=== PATIENT | female | born 1955 | race Caucasian/White ===

== ENCOUNTER 2018-07-25 15:28 | Inpatient (IN) | payer MEDICARE, BC ==
[~2018-07-25] VITALS: Ht 165.1 cm; Wt 63.5 kg
--- NOTE | 2018-07-25 16:00 | NUR ---
PT BIBS C/O SWELING IN BOTH LEGS, LOWER EXTREMETIES. +WEAKNESS.- N/V, - CHAUDHRY, STEADY GAIT
[2018-07-25 16:04] LABS: BASOPHILS % (AUTO) 0.1 % (0.0-2.0); HEMATOCRIT 28 % (33-45); HEMOGLOBIN 8.7 g/dL (11.5-14.8); LYMPHOCYTES # (AUTO) 0.6 /CMM (0.8-4.8); LYMPHOCYTES % (AUTO) 5.2 % (20.0-44.0); MEAN CORPUSCULAR HGB CONC 32 g/dl (31.0-36.0); MEAN CORPUSCULAR VOLUME 72 fL (82-100); MONOCYTES # (AUTO) 1.2 /CMM (0.1-1.30); MONOCYTES % (AUTO) 9.8 % (2.0-12.0); NEUTROPHILS # (AUTO) 10.4 /CMM (1.8-8.9); NEUTROPHILS % (AUTO) 84.9 % (43.0-81.0); PLATELET COUNT (AUTO) 743 /CMM (150-450); RED BLOOD CELL COUNT(AUTO) 3.84 MIL/uL (4.0-5.2); WHITE BLOOD COUNT (AUTO) 12.3 K/uL (4.3-11.0)
[2018-07-25 16:05] LABS: CALCIUM, SERUM 8.4 mg/dL (8.5-10.1); CARBON DIOXIDE 25 mmol/L (21-32); CHLORIDE 99 mmol/L (98-107); CREATININE 0.6 mg/dL (0.6-1.3); GLUCOSE 94 mg/dL (74-106); POTASSIUM 4.2 mmol/L (3.5-5.1); SODIUM SERUM 132 mmol/L (136-145); UREA NITROGEN, BLOOD 11 mg/dL (7-18)
[2018-07-25] MEDS ORDERED: ALBUMIN 25% 50 ML IV ONE (16:10)
[2018-07-25 16:22] LABS: ALANINE AMINOTRANSFERASE 12 U/L (12-78); ALBUMIN 1.9 g/dL (3.4-5.0); ALKALINE PHOSPHATASE 122 U/L (46-116); ASPARTATE AMINOTRANSFERASE 16 U/L (15-37); BILIRUBIN,DIRECT 0.1 mg/dL (0.0-0.2); BILIRUBIN,TOTAL 0.4 mg/dL (0.2-1.0); TOTAL PROTEIN, SERUM 5.3 g/dL (6.4-8.2)
[2018-07-25] MEDS ORDERED: ALBUMIN 25% 12.5 GM/50 ML BOTTLE IV ONE (16:30)
[2018-07-25] MEDS ORDERED: IV NS 0.9% 500 ML BAG IV ONE (16:30)
[2018-07-25 16:37] LABS: LYMPHOCYTES % (MANUAL) 6 % (16-48); MONOCYTES % (MANUAL) 13 % (0-11.0); NEUTROPHILS % (MANUAL) 81 (42-76)
[2018-07-25] MEDS ORDERED: PANTOPRAZOLE 40 MG VIAL IV ONE (17:30)
[2018-07-25] MEDS ORDERED: PANTOPRAZOLE 40 MG VIAL ONE (17:35)
--- NOTE | 2018-07-25 17:46 | NUR ---
CALLED [employer] CLERK WAS PAGED.
[2018-07-25] MEDS ORDERED: IV NS 0.9% 1,000 ML IV PRN (18:21)
[2018-07-25] MEDS ORDERED: HYDROCODONE/APAP 10/325MG 1 EA TABLET PO PRN (18:30)
[2018-07-25] MEDS ORDERED: ONDANSETRON HCL/PF 4 MG/2 ML VIAL IVP PRN (18:30)
[2018-07-25] MEDS ORDERED: MAG HYDROX/AL HYDROX/SIMETH 30 ML UDC PO PRN (18:30)
[2018-07-25] MEDS ORDERED: ACETAMINOPHEN 325 MG TABLET PO PRN (18:30)
[2018-07-25] MEDS ORDERED: Z GUARD REMEDY 2 OZ OINT TP PRN (18:30)
[2018-07-25] MEDS ORDERED: MAGNESIUM HYDROXIDE 30 ML UDC PO PRN (18:30)
[2018-07-25] MEDS ORDERED: HYDROCODONE/APAP 5/325MG 1 EACH TABLET PO PRN (18:30)
--- NOTE | 2018-07-25 19:13 | NUR ---
PT BEING TRANSFERRED TO ROOM 209-2 REPORT GIVEN TO DAVID OLMOS VICTORIANO, PT STABLE AND COMFORTABLE
[2018-07-25 20:00] VITALS: BP 123/74
--- NOTE | 2018-07-25 20:00 | NUR ---
MS/RN OPENING NOTES PT RECEIVED FROM ER VIA MARIAELENA. A/OX3. ON ROOM AIR, BREATHING EVEN AND UNLABORED. DENIES SOB AND PAIN. IV TO LAC PATENT AND INTACT. ORIENTED TO ROOM AND CALL LIGHT. FRIEND AT BEDSIDE, TOOK BELONGINGS EXCEPT GLASSES AND CASE. BED IN LOW/LOCKED POSITION WITH CALL LIGHT IN REACH, SIDE RAILS UPX2. HOB ELEVATED. WILL CONTINUE TO MONITOR
--- NOTE | 2018-07-25 21:00 | NUR ---
DR. SHERIFF AT BEDSIDE
[2018-07-25 21:21] VITALS: BP 92/53
[2018-07-25] MEDS: CEFTRIAXONE 2 G in IV NS 0.9% 100 ML IV SCH (23:28)
[2018-07-25] MEDS: AZITHROMYCIN 250 MG TABLET PO SCH (23:28)
--- NOTE | 2018-07-26 04:35 | NUR ---
SIMPSON INSERTED. PT TOLERATED WELL. CLEAR YELLOW URINE NOTED
[2018-07-26 06:23] LABS: APPEARANCE,URINE CLEAR (CLEAR); BILIRUBIN,URINE NEGATIVE (NEGATIVE); BLOOD, URINE NEGATIVE Ery/uL (NEGATIVE); COLOR,URINE YELLOW (YELLOW); KETONES,URINE 1+ (NEGATIVE); LEUKOCYTE ESTERASE ,URINE 1+ (NEGATIVE); NITRITE, URINE NEGATIVE (NEGATIVE); PROTEIN,URINE NEGATIVE (NEGATIVE); UGLUCOSE NEGATIVE (NEGATIVE); UROBILINOGEN,URINE 0.2 EU/dL (0.2)
[2018-07-26 06:23] LABS: BASOPHILS % (AUTO) 0.1 % (0.0-2.0); EOSINOPHILS % (AUTO) 0.2 % (0.0-6.0); HEMATOCRIT 23 % (33-45); HEMOGLOBIN 7.4 g/dL (11.5-14.8); LYMPHOCYTES # (AUTO) 0.3 /CMM (0.8-4.8); LYMPHOCYTES % (AUTO) 3.3 % (20.0-44.0); MEAN CORPUSCULAR HGB CONC 32 g/dl (31.0-36.0); MEAN CORPUSCULAR VOLUME 72 fL (82-100); MONOCYTES # (AUTO) 1.1 /CMM (0.1-1.30); MONOCYTES % (AUTO) 13.1 % (2.0-12.0); NEUTROPHILS # (AUTO) 7.2 /CMM (1.8-8.9); NEUTROPHILS % (AUTO) 83.3 % (43.0-81.0); PLATELET COUNT (AUTO) 614 /CMM (150-450); RED BLOOD CELL COUNT(AUTO) 3.23 MIL/uL (4.0-5.2); WHITE BLOOD COUNT (AUTO) 8.7 K/uL (4.3-11.0)
[2018-07-26 06:49] LABS: THYROID STIMULATING HORMONE 1.425 uIU/mL (0.358-3.74)
[2018-07-26 06:53] LABS: ALBUMIN 1.7 g/dL (3.4-5.0); BILIRUBIN,DIRECT 0.1 mg/dL (0.0-0.2); BILIRUBIN,TOTAL 0.3 mg/dL (0.2-1.0); CALCIUM, SERUM 7.5 mg/dL (8.5-10.1); CREATININE 0.5 mg/dL (0.6-1.3); MAGNESIUM 1.8 mg/dL (1.8-2.4); PHOSPHORUS 3.3 mg/dL (2.5-4.9); POTASSIUM 3.7 mmol/L (3.5-5.1); TOTAL PROTEIN, SERUM 4.3 g/dL (6.4-8.2)
[2018-07-26 06:56] LABS: IRON, SERUM 11 ug/dl (50-175); TOTAL IRON BINDING CAPACITY 150 ug/dl (250-450)
[2018-07-26 07:05] LABS: RBC,URINE NONE SEEN /HPF (0-2)
[2018-07-26 07:08] LABS: BACTERIA,URINE None seen /HPF (None Seen); SQUAMOUS EPITHELIAL CELL,UR Few /HPF (None Seen)
[2018-07-26 07:58] LABS: FERRITIN 32 ng/mL (8-388)
[2018-07-26 08:00] VITALS: BP 102/62
--- NOTE | 2018-07-26 08:09 | NUR ---
MS/RN CLOSING NOTES PT AWAKE, SITTING UP IN BED. KEEPS HOB ELEVATED DUE TO ACID REFLUX. ON ROOM AIR, BREATHING EVEN AND UNLABORED. DENIES SOB AND PAIN AT THIS TIME. IV TO LAC PATENT AND INTACT RUNNING IVF ORDERED. KEPT NPO FOR CT ABDOMEN WITH IV AND ORAL CONTRAST. PT AWARE, CONSENT NEEDS TO BE SIGNED. SIMPSON IN PLACE AND DRAINING TO GRAVITY. ALL NEEDS MET. KEPT COMFORTABLE DURING SHIFT. ALL NEEDS MET. BED IN LOW/LOCKED POSITION WITH CALL LIGHT IN REACH AND BILATERAL UPPER SIDE RAILS IN PLACE. ENDORSED TO DAY SHIFT RN VICTORIANO.
--- NOTE | 2018-07-26 08:30 | NUR ---
RN NOTES PATIENT SEEN BY DR. WILLARD. KEPT NPO AT TTHIS TIME FOR CT. NEEDS ATTENDED, BLE ELEVATED, CALL LIGHT WITHIN REACH. WILL CONTINUE TO MONITOR.
[2018-07-26] MEDS ORDERED: PANTOPRAZOLE 40 MG VIAL IV SCH (09:00)
[2018-07-26] MEDS ORDERED: DIATR MEGLU/DIATRIZOATE SODIUM 30 ML BOTTLE (GASTROGRAPHIN) ONE (09:03)
--- NOTE | 2018-07-26 09:15 | NUR ---
RN NOTES ORAL CONTRAST STARTED.
[2018-07-26] MEDS ORDERED: CT SWABBABLE VALVE TRANS SET 1 EA INFUS.SET MC ONE (12:22)
[2018-07-26] MEDS ORDERED: IOHEXOL-300 100 ML VIAL IV ONE (12:22)
[2018-07-26] MEDS ORDERED: IV NS 0.9% 250 ML IV ONE (12:23)
[2018-07-26] MEDS ORDERED: IOHEXOL 240MG/ML 50 ML IV ONE (12:45)
[2018-07-26] MEDS ORDERED: PEG 3350/NA SULF,BICARB,CL/KCL 4,000 ML BOTTLE PO ONE (14:00)
[2018-07-26] MEDS: SOD FERRIC GLUC 125 MG in IV NS 0.9% 100 ML IV SCH (15:01)
[2018-07-26 16:00] VITALS: BP 91/69
[2018-07-26 16:25] LABS: OCCULT BLOOD STOOL POSITIVE (NEGATIVE)
--- NOTE | 2018-07-26 18:20 | NUR ---
RN NOTES INFORMED JOSE L GEORGE PATIENT REQUESTING TO REMOVE SIMPSON CATHETER PRIOR TO BOWEL PREP, JOSE L GEORGE GAVE ORDER OK TO TN SIMPSON, SIMPSON CATHETER REMOVED AT 191, TOLERATED WELL, URINE OUTPUT SHOWS 800CC ON THE URINARY BAG. PATIENT STARTED ON BOWEL PREP, BEDSIDE COMMODE PROVIDED. EGD AND COLONOSCOPY CONSENTS SIGNED AND PLACED IN CHART. CT NEEDLE BIOPSY CONSENT SIGNED. NEEDS ATTENDED AND MET, CALL LIGHT WITHIN REACH, WILL ENDORSE TO BUFFING WHEEL FORMER MACHINE FOR VICTORIANO.
[2018-07-26 20:00] VITALS: BP 92/50
[2018-07-26] MEDS: CEFTRIAXONE 2 G in IV NS 0.9% 100 ML IV SCH (21:08)
[2018-07-26] MEDS: AZITHROMYCIN 250 MG TABLET PO SCH (21:08)
--- NOTE | 2018-07-27 06:00 | NUR ---
MS RN NOTES PT'S BM STILL NOT CLEAR. NOTIFIED DR. BISHOP RE PT'S STOOLS WITH NEW ORDERS TO GIVE DULCOLAX X 1. ORDERS NOTED AND CARRIED OUT. WILL CONTINUE TO MONITOR.
[2018-07-27] MEDS ORDERED: BISACODYL SUPP (10 MG) 10 MG/SUPP.RECT SUPP.RECT RC ONE (06:30)
[2018-07-27 06:34] LABS: CALCIUM, SERUM 8.2 mg/dL (8.5-10.1); CREATININE 0.6 mg/dL (0.6-1.3); PHOSPHORUS 3.6 mg/dL (2.5-4.9); POTASSIUM 3.4 mmol/L (3.5-5.1)
[2018-07-27 06:38] LABS: BASOPHILS # (AUTO) 0.1 /CMM (0.0-0.2); BASOPHILS % (AUTO) 0.6 % (0.0-2.0); EOSINOPHILS % (AUTO) 0.5 % (0.0-6.0); HEMATOCRIT 28 % (33-45); HEMOGLOBIN 8.7 g/dL (11.5-14.8); LYMPHOCYTES # (AUTO) 0.7 /CMM (0.8-4.8); LYMPHOCYTES % (AUTO) 6.8 % (20.0-44.0); MEAN CORPUSCULAR HGB CONC 31 g/dl (31.0-36.0); MEAN CORPUSCULAR VOLUME 74 fL (82-100); MONOCYTES # (AUTO) 0.9 /CMM (0.1-1.30); MONOCYTES % (AUTO) 9.4 % (2.0-12.0); NEUTROPHILS # (AUTO) 8.2 /CMM (1.8-8.9); NEUTROPHILS % (AUTO) 82.7 % (43.0-81.0); PLATELET COUNT (AUTO) 668 /CMM (150-450); RED BLOOD CELL COUNT(AUTO) 3.83 MIL/uL (4.0-5.2)
--- NOTE | 2018-07-27 06:57 | NUR ---
MS RN NOTES AWAKE & RESPONSIVE. NOT IN ANY DISTRESS. NO SOB NOTED. DENIES ANY PAIN OR DISCOMFORT AT THIS TIME. KEPT ON NPO P MN. WITH IV-HL PATENT & INTACT. MONITORED ACCORDINGLY. CALL LIGHT WITHIN REACH. BED IN LOWEST POSITION. SR UP X 2 FOR SAFETY. WILL ENDORSE TO NEXT SHIFT.
[2018-07-27 07:10] LABS: *SPE A/G RATIO 0.8 (0.7-1.7); *SPE ALBUMIN 1.8 g/dL (2.9-4.4); *SPE ALPHA-1-GLOBULIN 0.3 g/dL (0.0-0.4); *SPE ALPHA-2-GLOBULIN 0.7 g/dL (0.4-1.0); *SPE BETA GLOBULIN 0.6 g/dL (0.7-1.3); *SPE GLOBULIN, TOTAL 2.2 g/dL (2.2-3.9); *SPE M-SPIKE Not Observed g/dL (Not Observed); *SPEGAMMA GLOBULIN 0.5 g/dL (0.4-1.8); IMMUNOGLOBULIN A, SERUM 198 mg/dL (87-352); IMMUNOGLOBULIN G, SERUM 494 mg/dL (700-1600)
--- NOTE | 2018-07-27 07:25 | NUR ---
MS/RN OPENING NOTE THE PATIENT ALERT AND ORIENTED X4. IN ROOM AIR AND DENIES SOB. RESPIRATION REGULAR AND UNLABORED. DENIES PAIN. THE PATIENT IN NO APPARENT DISTRESS. NPO SINCE MIDNIGHT. RAC G 20 PATENT AND SALINE LOCKED. BED LOW AND LOCKED. SIDE RAILS UP X3. CALL LIGHT WITHIN REACH. WILL CONTINUE TO MONITOR.
[2018-07-27 08:00] VITALS: BP 101/62
[2018-07-27 08:10] LABS: AFP, TUMOR MARKER 3.8 ng/mL (0.0-8.3); CARBOHYDRATE AG 19-9 12 U/mL (0-35); IMMUNOGLOBULIN M, SERUM 16 mg/dL (26-217)
[2018-07-27] MEDS ORDERED: POTASSIUM CHLORIDE 20 MEQ TAB.PRT.SR PO SCH (10:00)
[2018-07-27] MEDS ORDERED: METHYLENE BLUE 10 ML VIAL ONE (13:38)
--- NOTE | 2018-07-27 15:09 | NUR ---
MS/RN NOTE FULL LIQUID DIET ORDER FROM DR BISHOP. NOTED AND CARRIED OUT.
[2018-07-27] MEDS: SOD FERRIC GLUC 125 MG in IV NS 0.9% 100 ML IV SCH (15:11)
[2018-07-27 16:00] VITALS: BP 102/53
[2018-07-27] MEDS: CEPHALEXIN MONOHYDRATE 500 MG CAPSULE PO SCH (16:32)
--- NOTE | 2018-07-27 17:57 | NUR ---
MS/RN CLOSING NOTE THE PATIENT ALERT AND ORIENTED X4. DENIES PAIN. IN ROOM AIR AND DENIES SOB. RESPIRATION REGULAR AND UNLABORED. OXYGEN SATURATION IN ROOM AIR AT 97%. THE PATIENT IN NO APPARENT DISTRESS. RAC G 20 PATENT AND SALINE LOCKED. BED LOW AND LOCKED. SIDE RAILS UP X3. CALL LIGHT WITHIN REACH. WILL ENDORSE TO OVER SHORT AND DAMAGE CLERK.
[2018-07-27 20:00] VITALS: BP 96/57
[2018-07-27] MEDS: AZITHROMYCIN 250 MG TABLET PO SCH (20:09)
--- NOTE | 2018-07-28 06:45 | NUR ---
MS RN NOTES AWAKE & RESPONSIVE. NOT IN ANY DISTRESS. NO SOB NOTED. DENIES ANY PAIN OR DISCOMFORT AT THIS TIME. WITH IV-HL PATENT & INTACT. MONITORED ACCORDINGLY. CALL LIGHT WITHIN REACH. BED IN LOWEST POSITION. SR UP X 2 FOR SAFETY. WILL ENDORSE TO NEXT SHIFT.
[2018-07-28 07:38] LABS: BASOPHILS % (AUTO) 0.2 % (0.0-2.0); EOSINOPHILS % (AUTO) 0.3 % (0.0-6.0); HEMATOCRIT 26 % (33-45); HEMOGLOBIN 8.2 g/dL (11.5-14.8); LYMPHOCYTES # (AUTO) 0.4 /CMM (0.8-4.8); LYMPHOCYTES % (AUTO) 4.3 % (20.0-44.0); MEAN CORPUSCULAR HGB CONC 32 g/dl (31.0-36.0); MEAN CORPUSCULAR VOLUME 73 fL (82-100); MONOCYTES # (AUTO) 0.9 /CMM (0.1-1.30); MONOCYTES % (AUTO) 10.7 % (2.0-12.0); NEUTROPHILS # (AUTO) 7.4 /CMM (1.8-8.9); NEUTROPHILS % (AUTO) 84.5 % (43.0-81.0); PLATELET COUNT (AUTO) 633 /CMM (150-450); RED BLOOD CELL COUNT(AUTO) 3.54 MIL/uL (4.0-5.2); WHITE BLOOD COUNT (AUTO) 8.7 K/uL (4.3-11.0)
--- NOTE | 2018-07-28 07:45 | NUR ---
MS/RN OPENING NOTE PATIENT IN BED IN STABLE CONDITION. A/O X 4. NO SIGNS OF ACUTE DISTRESS. NO COMPLAIN OF PAIN OR DISCOMFORT. ALL NEEDS ATTENDED TO. CALL LIGHT WITHIN REACH. WILL CONTINUE TO MONITOR TO ENSURE SAFETY.
[2018-07-28 07:47] LABS: CREATININE 0.4 mg/dL (0.6-1.3); MAGNESIUM 1.8 mg/dL (1.8-2.4); PHOSPHORUS 3.4 mg/dL (2.5-4.9); POTASSIUM 3.7 mmol/L (3.5-5.1)
[2018-07-28 08:00] VITALS: BP 103/54
[2018-07-28] MEDS: CEPHALEXIN MONOHYDRATE 500 MG CAPSULE PO SCH ×2 (09:03→17:15)
[2018-07-28] MEDS: SOD FERRIC GLUC 125 MG in IV NS 0.9% 100 ML IV SCH (14:46)
[2018-07-28 16:00] VITALS: BP 103/54
--- NOTE | 2018-07-28 18:17 | NUR ---
MS/RN CLOSING NOTE PATIENT IN BED IN STABLE CONDITION. A/O X 4. NO SIGNS OF ACUTE DISTRESS. NO COMPLAIN OF PAIN OR DISCOMFORT. ALL NEEDS ATTENDED TO. CALL LIGHT WITHIN REACH. WILL ENDORSE TO NEXT SHIFT FOR CONTINUITY OF CARE.
--- NOTE | 2018-07-28 19:30 | NUR ---
MS/RN RECEIVE PATIENT AWAKE, ALERT, ORIENTED, COMFORTABLE, NO C/O PAIN, NO DISTRESS NOTED, CALL LIGHT IN REACH. WILL MONITOR.
[2018-07-28 20:00] VITALS: BP 93/46
[2018-07-28] MEDS: AZITHROMYCIN 250 MG TABLET PO SCH (20:33)
--- NOTE | 2018-07-29 02:48 | NUR ---
MS/RN PATIENT IS SLEEPING AT THIS TIME, AROUSABLE, APPEAR COMFORTABLE, NO DISTRESS NOTED, CALL LIGHT IN REACH, WILL CONTINUE TO MONITOR.
[2018-07-29 06:04] LABS: BASOPHILS % (AUTO) 0.2 % (0.0-2.0); EOSINOPHILS % (AUTO) 0.1 % (0.0-6.0); HEMATOCRIT 25 % (33-45); LYMPHOCYTES # (AUTO) 0.4 /CMM (0.8-4.8); LYMPHOCYTES % (AUTO) 4.3 % (20.0-44.0); MEAN CORPUSCULAR HGB CONC 32 g/dl (31.0-36.0); MEAN CORPUSCULAR VOLUME 72 fL (82-100); MONOCYTES % (AUTO) 11.5 % (2.0-12.0); NEUTROPHILS # (AUTO) 7.2 /CMM (1.8-8.9); NEUTROPHILS % (AUTO) 83.9 % (43.0-81.0); PLATELET COUNT (AUTO) 580 /CMM (150-450); WHITE BLOOD COUNT (AUTO) 8.6 K/uL (4.3-11.0)
[2018-07-29 06:06] LABS: CREATININE 0.6 mg/dL (0.6-1.3); MAGNESIUM 1.8 mg/dL (1.8-2.4); PHOSPHORUS 3.2 mg/dL (2.5-4.9); POTASSIUM 3.4 mmol/L (3.5-5.1)
--- NOTE | 2018-07-29 06:57 | NUR ---
MS/RN PATIENT IS AWAKE, ALERT, ORIENTED, COMFORTABLE, NO DISTRESS NOTED, ALL NEEDS ATTENDED AT THIS TIME, WILL CONTINUE TO MONITOR.
[2018-07-29 08:00] VITALS: BP 97/49
[2018-07-29] MEDS: CEPHALEXIN MONOHYDRATE 500 MG CAPSULE PO SCH ×2 (08:24→16:20)
[2018-07-29] MEDS: POTASSIUM CHLORIDE 20 MEQ TAB.PRT.SR PO SCH ×2 (09:43→10:54)
[2018-07-29 10:40] LABS: BAND % (MANUAL) 3 % (0.0-5.0); LYMPHOCYTES % (MANUAL) 1 % (16-48); MONOCYTES % (MANUAL) 8 % (0-11.0); NEUTROPHILS % (MANUAL) 88 (42-76)
[2018-07-29] MEDS: SOD FERRIC GLUC 125 MG in IV NS 0.9% 100 ML IV SCH (13:48)
[2018-07-29 16:00] VITALS: BP 90/47
--- NOTE | 2018-07-29 19:40 | NUR ---
MS/RN RECEIVE PATIENT AWAKE, ALERT, ORIENTED, WALKING AROUND THE ROOM, COMFORTABLE, NO C/O PAIN, NO DISTRESS NOTED, WILL MONITOR.
[2018-07-29 20:00] VITALS: BP 94/67
[2018-07-29] MEDS: AZITHROMYCIN 250 MG TABLET PO SCH (20:49)
[2018-07-30 07:01] LABS: BASOPHILS % (AUTO) 0.3 % (0.0-2.0); EOSINOPHILS % (AUTO) 0.2 % (0.0-6.0); HEMATOCRIT 25 % (33-45); HEMOGLOBIN 8.2 g/dL (11.5-14.8); LYMPHOCYTES # (AUTO) 0.4 /CMM (0.8-4.8); LYMPHOCYTES % (AUTO) 4.2 % (20.0-44.0); MEAN CORPUSCULAR HGB CONC 33 g/dl (31.0-36.0); MEAN CORPUSCULAR VOLUME 73 fL (82-100); MONOCYTES # (AUTO) 1.1 /CMM (0.1-1.30); MONOCYTES % (AUTO) 11.5 % (2.0-12.0); NEUTROPHILS # (AUTO) 8.2 /CMM (1.8-8.9); NEUTROPHILS % (AUTO) 83.8 % (43.0-81.0); PLATELET COUNT (AUTO) 566 /CMM (150-450); RED BLOOD CELL COUNT(AUTO) 3.45 MIL/uL (4.0-5.2); WHITE BLOOD COUNT (AUTO) 9.8 K/uL (4.3-11.0)
--- NOTE | 2018-07-30 07:10 | NUR ---
MSRN. PT RECEIVED A&0X4, TOLERATING ROOM AIR WITHOUT DISTRESS. PT DENIES PAIN AT THIS TIME. PT WITH IVC AT L WRIST INTACT AND SALINE FLUSH PATENT. PT BED IN LOWEST LOCKED POSITION WITH HANDRIALSX2 AND CALL CALVILLO WITHIN REACH. PT BRIEFED ON TODAY'S POC AND IS WITHOUT CONCERN OR COMPLAINT, WILL CONTINUE POC.
--- NOTE | 2018-07-30 07:16 | NUR ---
MS/RN PATIENT IS AWAKE, TALKING ON THE PHONE, COMFORTABLE, ALL NEEDS ATTENDED AT THIS TIME, ENDORSED TO NEXT RN.
[2018-07-30 07:26] LABS: CALCIUM, SERUM 7.9 mg/dL (8.5-10.1); CREATININE 0.5 mg/dL (0.6-1.3); MAGNESIUM 1.8 mg/dL (1.8-2.4); PHOSPHORUS 3.3 mg/dL (2.5-4.9); POTASSIUM 3.7 mmol/L (3.5-5.1)
[2018-07-30] MEDS ORDERED: MAG30ORA PO (07:54)
[2018-07-30] MEDS ORDERED: CEPH500C2 PO (07:54)
[2018-07-30] MEDS ORDERED: MAGN400O6 PO (07:54)
[2018-07-30] MEDS ORDERED: ACET325T53 PO (07:54)
[2018-07-30 08:00] VITALS: BP 99/55
[2018-07-30] MEDS: CEPHALEXIN MONOHYDRATE 500 MG CAPSULE PO SCH (08:09)
[2018-07-30] MEDS ORDERED: FERR-56 PO (08:12)
[2018-07-30 09:17] LABS: BAND % (MANUAL) 3 % (0.0-5.0); LYMPHOCYTES % (MANUAL) 1 % (16-48); MONOCYTES % (MANUAL) 4 % (0-11.0); NEUTROPHILS % (MANUAL) 92 (42-76)
[2018-07-30] MEDS ORDERED: AMOX-427 PO (11:23)
[2018-07-30] MEDS: SOD FERRIC GLUC 125 MG in IV NS 0.9% 100 ML IV SCH (13:26)
--- NOTE | 2018-07-30 13:56 | NUR ---
PHYLLIS. REPORT CALLED TO NABEEL AT [facility]. PT HEALTH STATUS, NEEDS, MEDICATIONS AND D/C POC DISCUSSED.
--- NOTE | 2018-07-30 16:18 | NUR ---
MSRN PT PREPARED FOR D/C PER TEAM PSYCHOLOGIST LW. PT TOLERATING ROOM AIR AND DENIES PAIN. PT IVC REMOVED AND NAD. PT WITH ALL BELONGINGS AND DOCUMENT SIGNED. PT REPORTED CALLED TO SNF. PT BRIEFED ON [facility] D/C PACKET, MEDICATIONS, PHONE NUMBERS AND D/C POC. PT VERBALIZING UNDERSTANDING, RESOURCES AND INTENT TO FOLLOW POC. PT LEFT WITH EMT TRANS. PT LEFT WITHOUT CONCERN OR COMPLAINT AND GRATEFUL FOR CARE.
[2018-09-10] MEDS ORDERED: Prosource GT (09:41)
[2018-09-10] MEDS ORDERED: VANC125C11 PO (09:41)
[2018-09-10] MEDS ORDERED: NYST15OI TP (09:41)
[2018-09-10] MEDS ORDERED: PANT40TA2 PO (09:41)
[2018-09-10] MEDS ORDERED: APIX2.5T PO (09:41)
[2018-09-10] MEDS ORDERED: SUCR1ORA6 PO (09:41)
[2018-09-22] MEDS ORDERED: AZIT250T PO (14:31)
[2018-10-01] MEDS ORDERED: DOXY100T2 PO (11:57)
[2018-10-01] MEDS ORDERED: MUPI22OI7 MC (12:00)
== END 2018-07-30 15:30 | DRG 840 ==
LOC: ER 15:39 → MEDSG2 18:46
PROVIDERS: ADMIT Registered Nurse; ATTEND Registered Nurse
PROC: 0DB78ZX Excision of Stomach, Pylorus, Via Natural or Artificial Opening Endoscopic, Diagnostic (ICD-10-PCS; principal; 2018-07-27)
PROC: 0DBL8ZX Excision of Transverse Colon, Via Natural or Artificial Opening Endoscopic, Diagnostic (ICD-10-PCS; 2018-07-27)
DX: C85.99 Non-Hodgkin lymphoma, unspecified, extranodal and solid organ sites (principal); E43 Unspecified severe protein-calorie malnutrition; C78.7 Secondary malignant neoplasm of liver and intrahepatic bile duct; C78.00 Secondary malignant neoplasm of unspecified lung; K50.90 Crohn's disease, unspecified, without complications; I87.1 Compression of vein; N39.0 Urinary tract infection, site not specified; D72.829 Elevated white blood cell count, unspecified; J44.9 Chronic obstructive pulmonary disease, unspecified; R63.4 Abnormal weight loss; D63.8 Anemia in other chronic diseases classified elsewhere; E86.0 Dehydration; R74.0 Nonspecific elevation of levels of transaminase and lactic acid dehydrogenase [LDH]; R60.9 Edema, unspecified; K29.70 Gastritis, unspecified, without bleeding; D47.3 Essential (hemorrhagic) thrombocythemia; E87.6 Hypokalemia; D50.9 Iron deficiency anemia, unspecified; K21.9 Gastro-esophageal reflux disease without esophagitis; K31.7 Polyp of stomach and duodenum; K64.8 Other hemorrhoids; B96.89 Other specified bacterial agents as the cause of diseases classified elsewhere; Z87.01 Personal history of pneumonia (recurrent)
CPT/HCPCS: 36415; 71045-TC; 71260-TC; 80048-TC; 80061-TC; 80076-TC; 81000-TC; 82105; 82272-TC; 82378; 82728-TC; 82784; 83540-TC; 83615-TC; 83735-TC; 84100-TC; 84155; 84165; 84443-TC; 84484-TC; 85025-TC; 85730-TC; 86301; 86334; 86850-TC; 87081-TC; 87086-TC; 87177; 87209; 88305-TC; 88313-TC; 88342; 93970-TC; C9113; G0378; J0696; J2704; J2916; J7030; J7040; J7050; P9047; Q9963; Q9966; Q9967; Q9968

== ENCOUNTER 2018-08-26 10:08 | Inpatient (IN) | payer MEDICARE, BC ==
[~2018-08-26] VITALS: Ht 167.6 cm; Wt 70.3 kg
[2018-08-26] VITALS (17 sets, daily range): BP systolic 92–119; BP diastolic 49–63
[~2018-08-26 10:08] MED LIST: ACET325T53 PO; AMOX-427 PO; FERR-56 PO; MAG30ORA PO; MAGN400O6 PO
--- NOTE | 2018-08-26 10:08 | NUR ---
PT RUTHIE FROM [facility] FOR PERIODS OF CONFUSION, PT IS AAOX2, NOT IN RESPIRATORY DISTRESS, PT NOTED TACHYCARDIC 137 BPM, HOOKED TO MONITOR KEPT RESTED AND COMFORTABLE. WILL CONTINUE TO MONITOR.
--- NOTE | 2018-08-26 10:20 | NUR ---
SEEN AND EXAMINED BY DR. DELGADO.
--- NOTE | 2018-08-26 10:25 | NUR ---
IV LINE ESTABLISHED, LABS DRAWNED, URINE SPECIMEN COLLECTED VIA STRAIGHT CATH AND SENT TO LAB.
[2018-08-26 10:28] LABS: EOSINOPHILS % (AUTO) 1.4 % (0.0-6.0); LYMPHOCYTES % (AUTO) 30.4 % (20.0-44.0); MEAN CORPUSCULAR HGB CONC 34 g/dl (31.0-36.0); MEAN CORPUSCULAR VOLUME 86 fL (82-100); NEUTROPHILS % (AUTO) 31.2 % (43.0-81.0); PLATELET COUNT (AUTO) 85 /CMM (150-450); RED BLOOD CELL COUNT(AUTO) 2.12 MIL/uL (4.0-5.2)
[2018-08-26] MEDS ORDERED: MULT-447 PO (10:28)
[2018-08-26] MEDS ORDERED: ASCO500T9 PO (10:28)
[2018-08-26] MEDS ORDERED: ACET-868 PO ×2 (10:28)
[2018-08-26] MEDS ORDERED: LOPE2CAP40 PO (10:28)
[2018-08-26] MEDS ORDERED: ACID1TAB12 PO (10:28)
[2018-08-26] MEDS ORDERED: DIPH1TAB PO (10:28)
[2018-08-26] MEDS ORDERED: ZINC220C8 PO (10:28)
[2018-08-26] MEDS ORDERED: NYST15CR TP (10:28)
[2018-08-26] MEDS ORDERED: ALLO300T2 PO (10:28)
[2018-08-26] MEDS ORDERED: HYDR-4384 PO (10:28)
[2018-08-26] MEDS ORDERED: PANT40TA2 PO (10:28)
[2018-08-26] MEDS ORDERED: IV NS 0.9% 500 ML BAG IV ONE (10:30)
[2018-08-26 10:32] LABS: HEMATOCRIT 18 % (33-45); HEMOGLOBIN 6.2 g/dL (11.5-14.8); WHITE BLOOD COUNT (AUTO) 0.1 K/uL (4.3-11.0)
--- NOTE | 2018-08-26 10:34 | NUR ---
TRUCK SERVICE TECHNICIAN AT BEDSIDE FOR XRAY.
[2018-08-26 10:36] LABS: APPEARANCE,URINE Clear (CLEAR); BILIRUBIN,URINE Negative (NEGATIVE); BLOOD, URINE Trace-lysed Ery/uL (NEGATIVE); COLOR,URINE Yellow (YELLOW); KETONES,URINE 40 (NEGATIVE); LEUKOCYTE ESTERASE ,URINE Negative (NEGATIVE); NITRITE, URINE Negative (NEGATIVE); PH,URINE 8.5 (5.0-8.0); PROTEIN,URINE 100 mg/dl (NEGATIVE); UGLUCOSE Negative (NEGATIVE); UROBILINOGEN,URINE 0.2 EU/dL (0.2)
--- NOTE | 2018-08-26 10:44 | NUR ---
called for the ICU admission - notified NICKOLAS Brown supervisor packing room
[2018-08-26] MEDS ORDERED: ACETAMINOPHEN ES 500 MG TABLET ONE (10:45)
[2018-08-26] MEDS ORDERED: ACETAMINOPHEN 650 MG/SUPP.RECT RC ONE ×2 (10:55→11:00)
[2018-08-26 10:57] LABS: BACTERIA,URINE Few /HPF (None Seen); SQUAMOUS EPITHELIAL CELL,UR Few /HPF (None Seen); WBC,URINE 0-2 /HPF (0-3)
[2018-08-26] MEDS ORDERED: IV NS 0.9% 1,000 ML BAG IV ONE (11:00)
[2018-08-26] MEDS ORDERED: CEFEPIME 1 GM in IV D5W 50 ML IV ONE (11:00)
[2018-08-26] MEDS ORDERED: VANCOMYCIN 1 GM in IV D5W 250 ML IV ONE (11:00)
[2018-08-26] MEDS ORDERED: ACETAMINOPHEN ES 500 MG TABLET PO ONE (11:00)
[2018-08-26 11:06] LABS: ALBUMIN 1.7 g/dL (3.4-5.0); BILIRUBIN,DIRECT 0.4 mg/dL (0.0-0.2); BILIRUBIN,TOTAL 0.6 mg/dL (0.2-1.0); CALCIUM, SERUM 8.4 mg/dL (8.5-10.1); CREATININE 0.4 mg/dL (0.6-1.3); TOTAL PROTEIN, SERUM 4.9 g/dL (6.4-8.2)
--- NOTE | 2018-08-26 11:15 | NUR ---
ACCESS PORT-A-CATH ON ASEPTIC PROCEDURE AND PATIENT TOLERATED THE PROCEDURE.
--- NOTE | 2018-08-26 11:30 | NUR ---
PT IS WHEELD TO CT SCAN VIA ACLS PROTOCOL.
--- NOTE | 2018-08-26 11:35 | NUR ---
CALLED SOHEILA SANTOS PAGESundeep
--- NOTE | 2018-08-26 12:10 | NUR ---
REPORT GIVEN TO NICKOLAS ANTON FOR VICTORIANO, IV NS STILL INFUSING.
--- NOTE | 2018-08-26 12:15 | NUR ---
BRAN MIXER NOTE PT ARRIVED IN ICU. ER NURSE GEORGE ACCOMPANIED. ON RA O2 SAT 98%. ST 120'S ON TELE. BP 97/43. PT SPEECH INCOHERENT. PICS TAKEN OF WOUNDS. NS BOLUS INFUSING VIA CHEST R PORTACATH; C/D/P/I. TEMP 99.5. WILL CONT TO MONITOR.
[2018-08-26 12:30] LABS: BAND % (MANUAL) 2 % (0.0-5.0); EOSINOPHILS % (MANUAL) 2 % (0-4); LYMPHOCYTES % (MANUAL) 30 % (16-48); MONOCYTES % (MANUAL) 34 % (0-11.0); NEUTROPHILS % (MANUAL) 32 (42-76)
--- NOTE | 2018-08-26 12:30 | NUR ---
RD LAB TECHNICIAN NOTES DR SANTOS NOTIFIED OF ADMISSION. AWAITING ORDERS. WILL FOLLOW UP.
[2018-08-26] MEDS ORDERED: Z GUARD REMEDY 4 OZ OINT TP PRN (14:30)
[2018-08-26] MEDS ORDERED: ONDANSETRON HCL/PF 4 MG/2 ML VIAL IVP PRN (15:30)
[2018-08-26] MEDS ORDERED: FEE PK DOSING 1 MIN EA MC ONE (15:38)
[2018-08-26] MEDS ORDERED: FILGRASTIM (480 MCG) 480 MCG/1.6 ML VIAL SQ SCH (16:00)
[2018-08-26] MEDS: IV D5/0.45 NACL 1,000 ML IV PRN (16:06)
[2018-08-26 16:13] LABS: URIC ACID 1.4 mg/dL (2.6-7.2)
[2018-08-26] MEDS ORDERED: ACETAMINOPHEN 650 MG/SUPP.RECT RC PRN (17:00)
[2018-08-26] MEDS: ACETAMINOPHEN 325 MG TABLET PO PRN (17:16)
[2018-08-26] MEDS: MICAFUNGIN SODIUM 150 MG in IV NS 0.9% 100 ML IV SCH (17:41)
[2018-08-26] MEDS: CEFEPIME 2 GM in IV D5W 100 ML IV SCH (19:01)
--- NOTE | 2018-08-26 19:25 | NUR ---
ELECTRICAL INSTALLER NOTES PT ENDORSED TO RN FOR VICTORIANO. PT RECEIVING PRBC'S PORTACATH. NO S/SX OF REACTION NOTED. VS WNL. ON ROOM AIR O2 SAT WNL. ST 114 ON TELE. FEVER DEC AFTER TYLENOL SUPP. DR SANTOS AWARE OF LOW GRADE FEVER PRIOR TO BLOOD TRANSFUSION. IV SITES PATENT. NEUTROPENIC PRECAUTIONS MAINTAINED. PT UNABLE TO TOLERATE ANYTHING PO AT THIS TIME. NO C/O PAIN. ALL NEEDS ATTENDED TO.
--- NOTE | 2018-08-26 20:00 | NUR ---
Received patient A/O X 2 with periods of confusion.Respiration even and unlabored.On RA SPO2 100%. SR with occasional pvc's.VS stable.H/H 6.2 with 1 unit PRBC infusing via nelly cath.Site intact. Patient denies pain or any discomfort.Incontinent of urine.Kept clean and dry.Turned and repositioned. Fall precaution implemented with bed low,locked, side rail up x 3 and bed alarm on.Enforced to use call light for assistance kept within easy reach.Verbalized understanding.
[2018-08-26] MEDS ORDERED: PHYTONADIONE INJ 10 MG/1 ML AMPUL SQ ONE (21:00)
--- NOTE | 2018-08-26 21:30 | NUR ---
seen and evaluated patient.Orders received and carried out.Above blood transfusion completed with no adverse reaction.VS stable.FC Fr# 16 inserted under aseptic technique draining clear yellow urine.Patient tolerated procedure well.
[2018-08-26] MEDS: VANCOMYCIN 1 GM in IV D5W 250 ML IV SCH (23:00)
[2018-08-27] VITALS (27 sets, daily range): BP systolic 86–115; BP diastolic 44–80
--- NOTE | 2018-08-27 | NUR ---
Patient slept on and off ,hallucinating and disoriented.Reoriented to place and time.Turned and repositioned.VS stable.
[2018-08-27] MEDS: MORPHINE SULFATE INJ 2 MG/ML DISP.SYRIN IV PRN ×2 (01:39→23:43)
[2018-08-27] MEDS: CEFEPIME 2 GM in IV D5W 100 ML IV SCH ×2 (04:00→16:52)
--- NOTE | 2018-08-27 04:00 | NUR ---
Awake still with on and off hallucination.Bed bath rendered.Complete linens changed.Turned and repositioned.Denies pain.VS stable.ST 120's but not sustaining.Encouraged to cough and deep breath.Repositioned.
[2018-08-27 05:36] LABS: EOSINOPHILS % (AUTO) 8.2 % (0.0-6.0); HEMATOCRIT 22 % (33-45); HEMOGLOBIN 7.6 g/dL (11.5-14.8); LYMPHOCYTES % (AUTO) 6.6 % (20.0-44.0); MEAN CORPUSCULAR HGB CONC 35 g/dl (31.0-36.0); MEAN CORPUSCULAR VOLUME 86 fL (82-100); MONOCYTES # (AUTO) 0.1 /CMM (0.1-1.30); MONOCYTES % (AUTO) 29.5 % (2.0-12.0); NEUTROPHILS # (AUTO) 0.2 /CMM (1.8-8.9); NEUTROPHILS % (AUTO) 55.7 % (43.0-81.0); PLATELET COUNT (AUTO) 66 /CMM (150-450); RED BLOOD CELL COUNT(AUTO) 2.58 MIL/uL (4.0-5.2)
[2018-08-27 05:50] LABS: ALBUMIN 1.5 g/dL (3.4-5.0); BILIRUBIN,TOTAL 1.3 mg/dL (0.2-1.0); CALCIUM, SERUM 7.8 mg/dL (8.5-10.1); CREATININE 0.5 mg/dL (0.6-1.3); MAGNESIUM 1.4 mg/dL (1.8-2.4); PHOSPHORUS 1.6 mg/dL (2.5-4.9); TOTAL PROTEIN, SERUM 4.5 g/dL (6.4-8.2)
[2018-08-27 06:20] LABS: POTASSIUM 2.1 mmol/L (3.5-5.1)
--- NOTE | 2018-08-27 06:30 | NUR ---
Patient AM labs resulted with critical results relayed to . wants potassium repeated.If still low 2.1 to give Potassium 80 meq IVPB.Patient resting in no acute distress. IVF infusing well.Moderate amount urine output.Will endorse to day shift RN for continuity of care.
[2018-08-27] MEDS: IV D5/0.45 NACL 1,000 ML IV PRN (06:31)
[2018-08-27 06:35] LABS: THYROID STIMULATING HORMONE 0.706 uIU/mL (0.358-3.74)
[2018-08-27 06:40] LABS: WHITE BLOOD COUNT (AUTO) 0.3 K/uL (4.3-11.0)
[2018-08-27 06:47] LABS: LYMPHOCYTES % (MANUAL) 6 % (16-48)
[2018-08-27 06:50] LABS: MONOCYTES % (MANUAL) 40 % (0-11.0)
[2018-08-27 06:51] LABS: NEUTROPHILS % (MANUAL) 54 (42-76)
--- NOTE | 2018-08-27 07:30 | NUR ---
RECEIVED PATIENT A/OX1-2 AWAKE. ROOM AIR STABLE. NO S/S DISTRESS NOTED. DENIES PAIN. PATIENT IV SITES C/D/I/P WITH DAMI CATH SITE C/D/I/P AND GOOD BLOOD RETURN FROM SITE. TELE ST 120'S WHEN PATIENT WITH ACTIVITY. SIMPSON CATH TO GRAVITY PER RN 1250ML OUTPUT. PATIENT MOUTH IS DRY AND FREQUENT ORAL CARE AND SWABBING TO BE COMPLETED. NOTED WITH SACRAL WOUND; PENDING WOUND CONSULT. NO DIAPER. MEPILEX IN PLACE FOR PROTECTION. IVF PER MD ORDER. TOTAL 80MEQ IV POTASSIUM ORDERED FOR K LAB OF 2.0. PATIENT ON REVERSE ISOLATION PRECAUTIONS FOR WBC OF 0.3. SAFETY, SKIN, ASPIRATION, AND ISOLATION PRECAUTIONS IN PLACE AND MONITORING
[2018-08-27] MEDS: POTASSIUM CL. PREMIX PERIPHER. 50 ML IV SCH ×8 (07:36→15:38)
--- NOTE | 2018-08-27 08:00 | NUR ---
PATIENT AGREEABLE TO TURNING AND OFFLOADING SACRUM BUT REFUSING HEEL OFFLOADING. EDUCATED ON SKIN CARE AND WOUND PREVENTION.
[2018-08-27] MEDS: ALLOPURINOL 100 MG TABLET PO SCH (08:21)
--- NOTE | 2018-08-27 08:30 | NUR ---
NON ADMIN PO MEDICATION. PATIENT NEEDS SWALLOW EVAL. UNABLE TO SWALLOW WATER.
--- NOTE | 2018-08-27 10:00 | NUR ---
PATIENT AGREEABLE TO TURNING AND OFFLOADING SACRUM BUT REFUSING HEEL OFFLOADING. EDUCATED ON SKIN CARE AND WOUND PREVENTION.
[2018-08-27] MEDS: VANCOMYCIN 1 GM in IV D5W 250 ML IV SCH ×2 (10:27→22:55)
[2018-08-27] MEDS: Magnesium 1GM/D5W 100ML PREMIX 100 ML IV SCH ×2 (10:56→11:57)
[2018-08-27 11:46] LABS: OSMOLALITY,URINE 341 mOS/kg (340-1090)
[2018-08-27 11:47] LABS: CHLORIDE,URINE RANDOM 119 mmol/L (55-125); POTASSIUM RNDM,URINE 33 mmol/L (25-125); URINE SODIUM, RANDOM 68 mmol/l (40-220)
--- NOTE | 2018-08-27 12:00 | NUR ---
PATIENT AGREEABLE TO TURNING AND OFFLOADING SACRUM BUT REFUSING HEEL OFFLOADING. EDUCATED ON SKIN CARE AND WOUND PREVENTION.
[2018-08-27] MEDS: Potassium Chloride 40 MEQ in IV D5/0.45 NACL 1,000 ML IV PRN ×2 (12:13→21:25)
[2018-08-27] MEDS: Z GUARD REMEDY 2 OZ OINT TP PRN (12:13)
--- NOTE | 2018-08-27 14:00 | NUR ---
PATIENT AGREEABLE TO TURNING AND OFFLOADING SACRUM BUT REFUSING HEEL OFFLOADING. EDUCATED ON SKIN CARE AND WOUND PREVENTION.
[2018-08-27] MEDS: MICAFUNGIN SODIUM 150 MG in IV NS 0.9% 100 ML IV SCH (14:30)
[2018-08-27] MEDS: POTASSIUM PHOSPHATE MM 5 MMOL in IV D5W 100 ML IV SCH ×2 (16:51→19:19)
--- NOTE | 2018-08-27 17:41 | NUR ---
X3 MUCOID LOOSE STOOL. FLEXI SEAL INSERTED PATIENT HAS A SACRAL WOUND AND PATIENT AGREEABLE. C DIFF SAMPLE SENT TO LAB
[2018-08-27] MEDS: TBO-FILGRASTIM 480 MCG/0.8 ML ML SQ SCH (17:51)
--- NOTE | 2018-08-27 18:00 | NUR ---
PATIENT AGREEABLE TO TURNING AND OFFLOADING SACRUM BUT REFUSING HEEL OFFLOADING. EDUCATED ON SKIN CARE AND WOUND PREVENTION.
--- NOTE | 2018-08-27 19:19 | NUR ---
CARE ENDORSED TO NICKOLAS ROBBINS FOR VICTORIANO. PATIENT VSS. RESTING WELL. DENIES PAIN AT THIS TIME. NO S/S DISTRESS. PERIODS OF ANXIETY. PATIENT AT THIS TIME ALLOWING OFFLOADING OF HEELS AND SACRUM. IV SITES C/D/I/P. SIMPSON TO GRAVITY. FREQUENT SKIN CARE. FLEXI SEAL IN PLACE AND PATENT. SAFETY, SKIN, ASPIRATION, AND ISOLATION PRECAUTIONS IN PLACE AND MONITORED.
--- NOTE | 2018-08-27 20:45 | NUR ---
RN NOTES RECEIVED PT AWAKE ON BED AOX2, DENIES PAIN, AFEBRILE. ON REVERSE ISOLATION, WBC 0.3 . NO APPARENT DISTRESS IN ROOM AIR. ST ON TELE MONITOR HR 120'S . PATIENT IS PALE LOOKING LAST HGB IS 7.6. DENIES DIZZINESS OR N/V. COMPLAINING OF PAIN ENCOURAGED FOR PRN PAIN MEDICINE PER PATIENT SHE IS FINE. IV SITE ON RIGHT DAMI CATH RUNNING WITH LAST POTASSIUM PHOSPHATE AND LEFT WRIST G 20 WITH D51/2 NS @ 100 ML/HR. TURNED AND REPOSITIONED PATIENT FOR COMFORTABLE AND SKIN CARE. CALL LIGHT KEPT WITHIN EASY REACH. WILL CONTINUE TO MONITOR.
--- NOTE | 2018-08-27 23:48 | NUR ---
RN NOTES MORPHINE AND ZOFRAN IVP GIVEN DUE TO COMPLAINED OF GENERALIZED PAIN, SHOWS RESTLESSNESS AND IRRITABILITY AND FOR NAUSEA. PATIENT TOLERATED IT WELL
[2018-08-28] VITALS (41 sets, daily range): BP systolic 71–136; BP diastolic 48–91
[2018-08-28] MEDS: CEFEPIME 2 GM in IV D5W 100 ML IV SCH ×2 (04:10→15:15)
[2018-08-28 04:45] LABS: BASOPHILS % (AUTO) 0.2 % (0.0-2.0); EOSINOPHILS % (AUTO) 0.1 % (0.0-6.0); HEMATOCRIT 24 % (33-45); HEMOGLOBIN 8.1 g/dL (11.5-14.8); LYMPHOCYTES % (AUTO) 2.9 % (20.0-44.0); MEAN CORPUSCULAR HGB CONC 33 g/dl (31.0-36.0); MEAN CORPUSCULAR VOLUME 87 fL (82-100); MONOCYTES # (AUTO) 0.1 /CMM (0.1-1.30); NEUTROPHILS # (AUTO) 1.1 /CMM (1.8-8.9); NEUTROPHILS % (AUTO) 85.8 % (43.0-81.0); RED BLOOD CELL COUNT(AUTO) 2.81 MIL/uL (4.0-5.2)
[2018-08-28 04:51] LABS: CALCIUM, SERUM 7.6 mg/dL (8.5-10.1); CREATININE 0.5 mg/dL (0.6-1.3); MAGNESIUM 1.6 mg/dL (1.8-2.4); PHOSPHORUS 1.2 mg/dL (2.5-4.9); POTASSIUM 3.2 mmol/L (3.5-5.1)
[2018-08-28 04:57] LABS: PLATELET COUNT (AUTO) 45 /CMM (150-450); WHITE BLOOD COUNT (AUTO) 1.3 K/uL (4.3-11.0)
[2018-08-28 05:09] LABS: D-DIMER 4.28 mg/L(FEU (0.17-0.50)
[2018-08-28 05:17] LABS: LYMPHOCYTES % (MANUAL) 32 % (16-48); MONOCYTES % (MANUAL) 4 % (0-11.0)
[2018-08-28 05:18] LABS: NEUTROPHILS % (MANUAL) 64 (42-76)
--- NOTE | 2018-08-28 06:52 | NUR ---
RN NOTES PATIENT ASLEEP ON AND OFF Q 2H VERY RESTLESS AND UNABLE TO FIGURE OUT WHAT TO DO, NURSING MEASURES PROVIDED. COMFORTING PATIENT BY SITTING ON THE EDGE OF THE BED. NO CHANGE OF MENTAL STATUS, ABLE TO VERBALIZED OF FEELINGS . AFEBRILE THROUGHOUT THE SHIFT. NO SIGNIFICANT CHANGES CRITICAL VALUE WBC 1.3 AND PLATELET 45 REPORTED TO NAPOLEON ECHOLS NP NNO, AWARE THAT PATIENT HAD HEMATOLOGY CONSULT. NO ACTIVE BLEEDING NOTED KEPT PT CLEAN AND DRY . IV SITE AND IVF ONGOING. WILL ENDORSED CONTINUITY OF CARE TO AM NURSE.
[2018-08-28] MEDS: Potassium Chloride 40 MEQ in IV D5/0.45 NACL 1,000 ML IV PRN ×2 (06:59→16:15)
--- NOTE | 2018-08-28 07:30 | NUR ---
RECEIVED PATIENT A/OX2-3 AWAKE AND RESTLESS. ROOM AIR STABLE. NO SOB, DIFFICULTY BREATHING AND DENIES PAIN. PATIENT IV SITES C/D/I/P WITH DAMI CATH SITE C/D/I/P AND GOOD BLOOD RETURN FROM SITE. TELE ST 120'S WHEN PATIENT WITH ACTIVITY. SIMPSON CATH TO GRAVITY KARD YELLOW/ORANGE IN COLOR. PATIENT MOUTH IS DRY AND FREQUENT ORAL CARE AND SWABBING COMPLETED. PATIENT REFUSING CLEANING OF MOUTH AND ONLY ALLOWING WATER SOAKED TOOTHETTES TO BE GIVEN TO HER. NOTED WITH SACRAL WOUND/ INTERTRIGO GROIN; PENDING WOUND CONSULT. NO DIAPER. MEPILEX IN PLACE FOR PROTECTION. IVF PER MD ORDER. PATIENT ON REVERSE ISOLATION PRECAUTIONS FOR LOW ANC LEVEL. SAFETY, SKIN, ASPIRATION, AND ISOLATION PRECAUTIONS IN PLACE AND MONITORING. SPOKE WITH PATIENT SISTER AND UPDATED ON PATIENT CONDITION.
--- NOTE | 2018-08-28 08:30 | NUR ---
[employer] ORDERED. PATIENT REFUSING TO TURN AND HAVE PILLOWS PLACED ON SACRUM AT TIMES. FREQUENT ASSISTANCE WITH TURNING AND EDUCATION. PATIENT STATES UNDERSTANDING OF SKIN PRECAUTIONS AND ISSUES THAT CAN ARISE FROM NOT TURNING
[2018-08-28] MEDS: ALLOPURINOL 100 MG TABLET PO SCH (08:51)
[2018-08-28] MEDS: Z GUARD REMEDY 2 OZ OINT TP PRN (08:52)
--- NOTE | 2018-08-28 10:00 | NUR ---
DR WILLARD AT BEDSIDE. UPDATED ON PATIENT CONDITION
[2018-08-28] MEDS: VANCOMYCIN 1 GM in IV D5W 250 ML IV SCH ×2 (10:16→22:32)
[2018-08-28] MEDS ORDERED: POTASSIUM PHOSPHATE MM 15 MMOL in IV D5W 250 ML IV SCH (10:30)
--- NOTE | 2018-08-28 10:45 | NUR ---
DR MENA AT BEDSIDE. PER MD PLEASE OBTAIN CONSENT FOR SACRAL DEBRIDEMENT. PATIENT ABLE TO SIGN AND AGREEABLE. BED BATH COMPLETED. [employer] PLACED
[2018-08-28] MEDS: Magnesium 1GM/D5W 100ML PREMIX 100 ML IV SCH ×2 (10:52→11:55)
--- NOTE | 2018-08-28 12:00 | NUR ---
PATIENT CONTINUES TO REFUSE TURNING AND OFFLOADING. CONTINUING TO REMOVE PILLOWS AND REPOSITION TO SACRUM. PATIENT EDUCATED ON SKIN CARE AND STATES UNDERSTANDING.
[2018-08-28] MEDS: POTASSIUM PHOSPHATE MM 7.5 MMOL in IV D5W 100 ML IV SCH ×2 (12:26→15:26)
[2018-08-28] MEDS ORDERED: Magnesium 1GM/D5W 100ML PREMIX 100 ML IV SCH (12:30)
[2018-08-28] MEDS: NYSTATIN OINT 100000 UNIT/G 15 GM TUBE TP SCH ×2 (12:33→16:04)
[2018-08-28] MEDS: THERAHONEY GEL 1.5 OZ TUBE TP SCH (12:33)
--- NOTE | 2018-08-28 12:54 | NUR ---
PATIENT CONTINUING TO HALLUCINATE. MOUTH SEVERELY DRY BUT MOST OF TIME REFUSING WATER AND ORAL LUBRICATION. FREQUENT ROUNDING AND EDUCATION AND ATTEMPTS TO ASSIST WITH ORAL CARE. DR SANTOS AWARE PATIENT POSITIVE FOR C DIFF; PER MD PLEASE ORDER PO VANCO 250MG Q6H. MD AWARE HALLUCINATIONS INCREASING; MONITOR AT THIS TIME PER MD. PER SPEECH THERAPIST OK FOR PUREED DIET MOIST. WILL ATTEMPT ORAL INTAKE AGAIN WITH PATIENT.
--- NOTE | 2018-08-28 15:00 | NUR ---
BP LOW. PATIENT SLEEPING. HOB LOWERED. LEGS ELEVATED. REPOSITIONED PATIENT. WILL MONITOR.
--- NOTE | 2018-08-28 15:20 | NUR ---
DURING EACH 0800, 1000, 1200, 1400 TURNING PATIENT AGREEABLE TO REPOSITIONING AND OFFLOADING OF SACRUM/HEELS HOWEVER WILL REMOVE PILLOWS AND LIE ON SACRUM AFTER RN LEAVES ROOM. CONTINUING TO EDUCATE PATIENT. DR WOO AWARE.
[2018-08-28] MEDS: TBO-FILGRASTIM 480 MCG/0.8 ML ML SQ SCH (16:03)
--- NOTE | 2018-08-28 16:05 | NUR ---
NOTIFIED DR SANTOS BP HOVERING IN 80'S SYSTOLIC. PER MD PLEASE GIVE 250NS BOLUS.
[2018-08-28] MEDS: MICAFUNGIN SODIUM 150 MG in IV NS 0.9% 100 ML IV SCH (16:14)
[2018-08-28] MEDS ORDERED: IV NS 0.9% 250 ML IV ONE ×2 (16:30→17:30)
--- NOTE | 2018-08-28 17:00 | NUR ---
PATIENT REFUSING ANY ORAL INTAKE OF MEDICATIONS (VANCO) AND WATER. CONTINUING TO LUBRICATE MOUTH PATIENT WILL ALLOW. EDUCATED ON IMPORTANCE OF MEDICATIONS AND INFECTION.
--- NOTE | 2018-08-28 17:19 | NUR ---
NOTIFIED DR SANTOS PATIENT SBP CONTINUES IN THE 80'S. PER MD GIVE ANOTHER 250NS BOLUS
--- NOTE | 2018-08-28 17:22 | NUR ---
NOTIFIED DR SANTOS PATIENT REFUSING PO INTAKE AND PO VANCO. PER PLEASE DC PO VANCO AND ORDER FLAGYL 500MG IVPB QID
[2018-08-28] MEDS ORDERED: VANCOMYCIN HCL 125 MG/2.5 ML ORAL.SUSP PO SCH (18:00)
--- NOTE | 2018-08-28 18:20 | NUR ---
DR SHERIFF AT BEDSIDE. NOTIFIED MD PATIENT REFUSING ANY ORAL INTAKE C/O PAIN AND DRYNESS. NOTIFIED WE ARE COMPLETING Q1H OR LESS ORAL CARE WITH SWABS TO ASSIST WITH KEEPING FROM DRYING OUT BUT PATIENT CONTINUES TO REFUSE. MD WILL ORDER MOUTH WASH FOR PAIN AND ANTI FUNGAL
[2018-08-28] MEDS ORDERED: [UNRECOGNIZED DRUG - OTHER] PO ONE (18:42)
[2018-08-28] MEDS ORDERED: LIDOCAINE VISCOUS 2% UD 15 ML UDC PO ONE (18:42)
[2018-08-28] MEDS ORDERED: LIDOCAINE MM PRN (19:00)
[2018-08-28] MEDS ORDERED: NYSTATIN MM PRN (19:00)
--- NOTE | 2018-08-28 19:25 | NUR ---
RN NOTE RECEIVED PT AWAKE ON BED. NO SOB OR RESPIRATORY DISTRESS IN ROOM AIR. WITH EPISODE OF LOW BP IN AM. CONTINUE TO MONITOR AND STRICT OBSERVED FOR C- DIFF ISOLATION AND PLACED NEUTROPENIC PRECAUTION DUE TO LOW WBC. PT IS AOX 2 WITH HALLUCINATION PRESENT. AFEBRILE. ST ON TELE MONITOR. IV SITE ON LEFT WRIST G 20 WITH D5 1/2 NS + 40 MEQ KCL @ 100 ML/HR . RCW DAMI CATH INTACT AND PATENT WITH GOOD BLOOD RETURN. BILATERAL PULSES POSITIVE AND STRONG. SIMPSON CATH DRAINED VIA GRAVITY WITH YELLOW COLOR URINE. KEPT PT CLEAN AND DRY. WILL CONTINUE TO MONITOR.
[2018-08-28] MEDS ORDERED: METRONIDAZOLE 500MG/ NS 100ML 500 MG in PREMIX 1 EA IV SCH (21:00)
[2018-08-28] MEDS: LIDOCAINE MM SCH (22:05)
[2018-08-28] MEDS: NYSTATIN MM SCH (22:05)
[2018-08-28] MEDS: VANCOMYCIN FOR RECTAL ENEMA 500 MG RC SCH (22:05)
[2018-08-28] MEDS ORDERED: METRONIDAZOLE 500MG/ NS 100ML 100 ML IV ONE (22:11)
[2018-08-29] VITALS (63 sets, daily range): BP systolic 66–137; BP diastolic 40–85
[2018-08-29] MEDS: CEFEPIME 2 GM in IV D5W 100 ML IV SCH ×2 (03:27→16:50)
[2018-08-29] MEDS: Potassium Chloride 40 MEQ in IV D5/0.45 NACL 1,000 ML IV PRN (03:27)
[2018-08-29 04:10] LABS: BASOPHILS % (AUTO) 0.5 % (0.0-2.0); EOSINOPHILS % (AUTO) 0.8 % (0.0-6.0); HEMATOCRIT 22 % (33-45); HEMOGLOBIN 7.6 g/dL (11.5-14.8); LYMPHOCYTES # (AUTO) 0.1 /CMM (0.8-4.8); LYMPHOCYTES % (AUTO) 3.2 % (20.0-44.0); MEAN CORPUSCULAR HGB CONC 34 g/dl (31.0-36.0); MEAN CORPUSCULAR VOLUME 87 fL (82-100); MONOCYTES # (AUTO) 0.3 /CMM (0.1-1.30); MONOCYTES % (AUTO) 17.4 % (2.0-12.0); NEUTROPHILS # (AUTO) 1.5 /CMM (1.8-8.9); NEUTROPHILS % (AUTO) 78.1 % (43.0-81.0); RED BLOOD CELL COUNT(AUTO) 2.58 MIL/uL (4.0-5.2)
[2018-08-29 04:20] LABS: PLATELET COUNT (AUTO) 44 /CMM (150-450); WHITE BLOOD COUNT (AUTO) 1.9 K/uL (4.3-11.0)
[2018-08-29 04:24] LABS: BILIRUBIN,TOTAL 0.6 mg/dL (0.2-1.0); CALCIUM, SERUM 7.7 mg/dL (8.5-10.1); CREATININE 0.4 mg/dL (0.6-1.3); MAGNESIUM 1.7 mg/dL (1.8-2.4); PHOSPHORUS 1.6 mg/dL (2.5-4.9); POTASSIUM 3.7 mmol/L (3.5-5.1); TOTAL PROTEIN, SERUM 3.7 g/dL (6.4-8.2)
[2018-08-29 04:38] LABS: ALBUMIN 1.2 g/dL (3.4-5.0)
[2018-08-29 04:52] LABS: BAND % (MANUAL) 10 % (0.0-5.0); LYMPHOCYTES % (MANUAL) 6 % (16-48)
[2018-08-29 04:54] LABS: MONOCYTES % (MANUAL) 14 % (0-11.0); NEUTROPHILS % (MANUAL) 70 (42-76)
[2018-08-29] MEDS: VANCOMYCIN FOR RECTAL ENEMA 500 MG RC SCH ×3 (05:00→21:25)
--- NOTE | 2018-08-29 05:05 | NUR ---
RN NOTES PT REFUSED VANCOMYCIN 500 MG VIA RECTAL, EXPLAINED RISK AND BENEFITS OF MEDICINE " STATING THAT THE NURSE ALREADY GIVE THE MEDICINE AND IT HURTS" FREQUENCY OF MEDICINE EXPLAINED PT STARTED TO GET AGITATED AND SCREAMED WHEN OFFERED X 3. BED BATH DONE LARGE AMOUNT OF LIQUID STOOL COME OUT TO FLEXISEAL AND LEAKED IN THE PADS. WILL CONTINUE TO MONITOR.
--- NOTE | 2018-08-29 07:15 | NUR ---
RN INITIAL NOTES RECEIVED PT AWAKE, A/O, CONFUSED. ON ROOM AIR. NO SOB NOTED. DENIES PAIN AT THIS TIME. RIGHT CHEST WALL DAMI-CATH IN PLACE. LEFT HAND #[address] IVF INFUSING. FC IN PLACE. NO HEMATURIA NOTED. FLEXISEAL IN PLACE. BLE ELEVATED. PT COMFORTABLE. CALL LIGHT WITHIN REACH. WILL MONITOR
--- NOTE | 2018-08-29 07:24 | NUR ---
RN NOTES PATIENT ASLEEP WELL ON BED. BREATHING EVEN AND UNLABORED IN ROOM AIR. NSR ON TELE MONITOR. CLOSELY MONITOR BLOOD PRESSURE DUE TO HYPOTENSION. CONTINUE WITH ISOLATION FOR C-DIFF AND NEUTROPENIC. AFEBRILE THROUGHOUT THE SHIFT. ALL IV ATB GIVEN ORDERED. LARGE LIQUID AMT OF STOOL PRESENT. RECENT WBC 1.9 AND PLATELET 44, CONTINUE TO MONITOR LAB VALUES. KEPT PT CLEAN AND DRY. ENDORSED CONTINUITY OF CARE TO AM NURSE.
--- NOTE | 2018-08-29 07:46 | NUR ---
WOUND CARE CONSULT WOUND CARE RECEIVED CONSULT FOR SACRAL DISCOLORATION. WOUND CARE WILL DEFER CONSULT AND ALL TREATMENT PLANS TO PLASTIC SURGICAL TEAM WHO ARE CURRENTLY FOLLOWING THIS PATIENT. PATIENT WITH DUANE AT 13, ALL PRESSURE ULCER PREVENTION MEASURES ARE NOTED TO BE IN PLACE AT THIS TIME. WILL SEE PRN.
[2018-08-29] MEDS: ALLOPURINOL 100 MG TABLET PO SCH (08:08)
[2018-08-29] MEDS: LIDOCAINE MM SCH ×3 (08:09→16:33)
[2018-08-29] MEDS: NYSTATIN MM SCH ×3 (08:09→16:33)
[2018-08-29] MEDS: NYSTATIN OINT 100000 UNIT/G 15 GM TUBE TP SCH ×2 (08:09→16:34)
[2018-08-29] MEDS: THERAHONEY GEL 1.5 OZ TUBE TP SCH (08:09)
[2018-08-29] MEDS: IV D5/ 0.9% NACL 1,000 ML IV PRN (09:55)
[2018-08-29] MEDS: Magnesium 1GM/D5W 100ML PREMIX 100 ML IV SCH ×2 (09:55→10:55)
[2018-08-29] MEDS: METRONIDAZOLE 500MG/ NS 100ML 500 MG in PREMIX 1 EA IV SCH ×3 (09:56→21:25)
[2018-08-29] MEDS ORDERED: POTASSIUM PHOSPHATE MM 15 MMOL in IV D5W 250 ML IV SCH (10:00)
[2018-08-29] MEDS: POTASSIUM PHOSPHATE MM 7.5 MMOL in IV D5W 100 ML IV SCH ×2 (10:31→13:30)
--- NOTE | 2018-08-29 11:00 | NUR ---
RN NOTES 0900 SEEN AND EXAMINED BY DR STAFFORD. PT ON ROOM AIR. 02 SAT 100%. NO SOB NOTED. AWARE OF LAB VALUES AND IMAGING STUDIES RESULT. WILL MONITOR 1100 SEEN AND EXAMINED BY CODI SANTOS. AWARE OF LAB VALUES: WBC 1.9, HGB 7.6, HCT 22, PLATELET 44. NO SIGNS OF ACTIVE BLEEDING NOTED. SODIUM 134, BUN 7, CREA 0.4. MAGNESIUM 1.7 AND PHOSPHORUS 1.6, REPLACEMENT ORDERED. ALSO AWARE OF CXR RESULT. CODI NOTIFIED THAT PT STILL REFUSES TO EAT AND SBP ON LOW 80S. ORDERED INSERT NGT AND LEVOPHED. NOTED AND CARRIED OUT. WILL MONITOR.
[2018-08-29] MEDS: VANCOMYCIN 1 GM in IV D5W 250 ML IV SCH ×2 (11:16→23:38)
[2018-08-29] MEDS: NOREPINEPHRINE 8 MG in IV D5W 500 ML IV PRN (11:33)
[2018-08-29] MEDS: IV NS 0.9% 1,000 ML IV PRN (11:34)
--- NOTE | 2018-08-29 12:00 | NUR ---
RN NOTES PT REFUSED NGT INSERTION. EXPLAINED BENEFITS, OFFERED X3. PEYMAN RN ALSO OFFERED NGT INSERTION. EXPLAINED ADVANTAGES, PT STILL REFUSED. RESPECTED PT'S RIGHTS. CODI SANTOS AWARE.
[2018-08-29] MEDS: MICAFUNGIN SODIUM 150 MG in IV NS 0.9% 100 ML IV SCH (15:49)
[2018-08-29] MEDS: TBO-FILGRASTIM 480 MCG/0.8 ML ML SQ SCH (16:49)
--- NOTE | 2018-08-29 18:32 | NUR ---
RN CLOSING NOTES PT REMAINS A/OX1, CONFUSED. ON ROOM AIR. NO RESPIRATORY DISTRESS NOTED. NO SIGNS OF PAIN NOTED. PT ON LEVO AT 11MCG/MIN. SBP KEPT >90MMHG. FC IN PLACE. FLEXISEAL IN PLACE. TX PROVIDED ORDERED. KEPT COMFORTABLE. REPOSITIONED Q2. BLE ELEVATED. ALL NEEDS ATTENDED AND MET. WILL ENDORSE FOR CONTINUITY OF CARE.
--- NOTE | 2018-08-29 19:30 | NUR ---
PICTURE ENGRAVER RCD PT W/DX SEPSIS; PT IS A/0 x2; PT REQUIRES REMINDING OF DATE AND TIME; PT ABLE TO MAKE NEEDS KNOWN HOWEVER HAS TROUBLE SPEAKING D/T REDNESS AND RAWNESS INSIDE MOUTH; PT HAS LIDOCAINE. PT DENIES NEED FOR PAIN MEDICATION. PT NSR ON MONITOR. LEVOPHED AT 11 MCG/MIN. ON ROOM AIR WITH NO DISTRESS NOTED. MULTIPLE WOUNDS WITH MEPILEX IN PLACE.
--- NOTE | 2018-08-29 20:00 | NUR ---
PACK OPERATOR PT REPOSITIONED; RENDERED ORAL CARE. PT DENIES NEED FOR PAIN MEDICATION. CONTINUE TO MONITOR.
--- NOTE | 2018-08-29 21:00 | NUR ---
INVESTIGATION DIVISION LIEUTENANT PER LINDA MENTAL HEALTH TECHNICIAN IVF D5NS@70 ML/HR TO CONTINUE.
[2018-08-30] VITALS (72 sets, daily range): BP systolic 74–127; BP diastolic 48–85
--- NOTE | 2018-08-30 | NUR ---
DIRECTOR OF BUSINESS SERVICES PT DECLINED TO EAT OR DRINK WATER; ONLY ACCEPTS ORAL CARE WITH LIDOCAINE. CONTINUE TO MONITOR.
[2018-08-30] MEDS: IV D5/ 0.9% NACL 1,000 ML IV PRN (00:20)
[2018-08-30] MEDS: NOREPINEPHRINE 8 MG in IV D5W 500 ML IV PRN ×2 (00:20→14:37)
[2018-08-30] MEDS: METRONIDAZOLE 500MG/ NS 100ML 500 MG in PREMIX 1 EA IV SCH ×4 (03:00→21:51)
[2018-08-30] MEDS: CEFEPIME 2 GM in IV D5W 100 ML IV SCH ×2 (04:00→16:07)
[2018-08-30] MEDS: VANCOMYCIN FOR RECTAL ENEMA 500 MG RC SCH ×3 (04:00→20:02)
[2018-08-30 04:18] LABS: HEMATOCRIT 25 % (33-45); HEMOGLOBIN 8.5 g/dL (11.5-14.8); LYMPHOCYTES # (AUTO) 0.2 /CMM (0.8-4.8); MEAN CORPUSCULAR HGB CONC 34 g/dl (31.0-36.0); MEAN CORPUSCULAR VOLUME 88 fL (82-100); MONOCYTES % (AUTO) 12.8 % (2.0-12.0); NEUTROPHILS # (AUTO) 6.9 /CMM (1.8-8.9); NEUTROPHILS % (AUTO) 85.2 % (43.0-81.0); PLATELET COUNT (AUTO) 57 /CMM (150-450); RED BLOOD CELL COUNT(AUTO) 2.87 MIL/uL (4.0-5.2); WHITE BLOOD COUNT (AUTO) 8.1 K/uL (4.3-11.0)
[2018-08-30 04:26] LABS: BILIRUBIN,TOTAL 0.6 mg/dL (0.2-1.0); CALCIUM, SERUM 7.4 mg/dL (8.5-10.1); CREATININE 0.4 mg/dL (0.6-1.3); MAGNESIUM 1.6 mg/dL (1.8-2.4); PHOSPHORUS 2.1 mg/dL (2.5-4.9); POTASSIUM 3.2 mmol/L (3.5-5.1); TOTAL PROTEIN, SERUM 3.7 g/dL (6.4-8.2)
[2018-08-30 04:31] LABS: ALBUMIN 1.3 g/dL (3.4-5.0)
--- NOTE | 2018-08-30 05:00 | NUR ---
STEAMFITTER RCD CALL FROM PTS SISTER UPDATED ON PLAN OF CARE; ASKED SISTER TO CALL DR SHERIFF.
[2018-08-30 05:11] LABS: BAND % (MANUAL) 8 % (0.0-5.0); LYMPHOCYTES % (MANUAL) 6 % (16-48); MONOCYTES % (MANUAL) 5 % (0-11.0); NEUTROPHILS % (MANUAL) 81 (42-76)
--- NOTE | 2018-08-30 06:56 | NUR ---
GENERAL FORECASTER PT RESTING. REMAINS ON LEVOPHED AT 10 MCG/MIN; UNABLE TO TITRATE LOWER SBP DROPS TO 80s.
--- NOTE | 2018-08-30 07:00 | NUR ---
report receieved from Chanel OLMOS at bedside; asleep, arousable to stimuli,denies pain at this time; remains on Levophed drip
--- NOTE | 2018-08-30 07:00 | NUR ---
report received from Chanel Velazquez; remains on mechanical ventilator via ETT; Propofol drip ongoing, sirs to stimuli easily; remains on bilateral soft wrist restraints
[2018-08-30] MEDS ORDERED: POTASSIUM PHOSPHATE MM 15 MMOL in IV D5W 250 ML IV SCH (07:30)
[2018-08-30] MEDS: Magnesium 1GM/D5W 100ML PREMIX 100 ML IV SCH ×2 (08:00→08:59)
--- NOTE | 2018-08-30 08:45 | NUR ---
seen by Dr Ng at bedside with order to turn off Propofol right away; pts at bedside pt encouraged relaxation excercises Addendum: 08/30/18 at 1602 by JACQUES CLIFTON RN head of data error. wrong pt
[2018-08-30] MEDS: ALLOPURINOL 100 MG TABLET PO SCH (09:03)
[2018-08-30] MEDS: POTASSIUM PHOSPHATE MM 7.5 MMOL in IV NS 0.9% 100 ML IV SCH ×2 (09:04→12:20)
[2018-08-30] MEDS: LIDOCAINE MM SCH ×3 (09:05→16:11)
[2018-08-30] MEDS: NYSTATIN MM SCH ×3 (09:05→16:11)
[2018-08-30] MEDS: NYSTATIN OINT 100000 UNIT/G 15 GM TUBE TP SCH ×2 (09:05→17:48)
[2018-08-30] MEDS: THERAHONEY GEL 1.5 OZ TUBE TP SCH (09:05)
--- NOTE | 2018-08-30 09:45 | NUR ---
extubated as ordered by Dr Ng by RT Love
[2018-08-30] MEDS: IV NS 0.9% 1,000 ML IV PRN (10:32)
[2018-08-30] MEDS: VANCOMYCIN 1 GM in IV D5W 250 ML IV SCH (11:21)
[2018-08-30] MEDS: Potassium Chloride 20 MEQ in IV NS 0.9% 1,000 ML IV PRN (12:18)
[2018-08-30] MEDS: MICAFUNGIN SODIUM 150 MG in IV NS 0.9% 100 ML IV SCH (14:39)
--- NOTE | 2018-08-30 14:39 | NUR ---
SPOKE WITH NICKOLAS SHAFER TO DETERMINE STATUS OF PT TO PERFORM LUMBAR PUNCTURE IN DEPARTMENT WITH RADIOLOGIST. RN WILL CALL DEPARTMENT BACK UPON SPEAKING WITH ORDERING PHYSICIAN TO COORDINATE PROCEDURE.
--- NOTE | 2018-08-30 14:48 | NUR ---
Neurolgy VERONICA Lackey aware pt is still on Levophed drip; ok'd holding MRI and LP by Radiology at this time until stablel Radiology department aware
--- NOTE | 2018-08-30 16:02 | NUR ---
date entry error, wrong pt
--- NOTE | 2018-08-30 16:02 | NUR ---
date entry error, wrong pt
[2018-08-30] MEDS: TBO-FILGRASTIM 480 MCG/0.8 ML ML SQ SCH (16:07)
[2018-08-30] MEDS: PROSOURCE / PROSTAT (PYXIS) 30 ML UDC GT SCH (17:00)
--- NOTE | 2018-08-30 19:07 | NUR ---
report given at bedside to Jeffrey Humphreys RN
--- NOTE | 2018-08-30 19:30 | NUR ---
MANAGING EDITOR INITIAL SHIFT NOTES RECEIVED PATIENT IN BED, AWAKE, ALERT AND ORIENTED X 2-3, SOMETIMES MUMBLES/SLURS WORDS, MAKING COMMUNICATION SOMEWHAT DIFFICULT. PATIENT ENCOURAGED TO VERBALIZE NEEDS. WALL INSULATION SPRAYER SHOWS SINUS RHYTHM, HR 92 BPM AT THIS TIME. TOLERATING ROOM AIR WELL, FREE FROM ANY S/S OF RESPIRATORY DISTRESS. RIGHT CHEST WALL PORT-A-CATH PATENT AND INTACT, FLUSHED WITH NS, NOTED WITH GOOD BLOOD RETURN, IV FLUIDS KCL 20MEQ IN NS INFUSING AT 70 ML/HR, LEVOPHED DRIP @ 10MCG/MIN. SIMPSON CATHETER DRAINING CLEAR YELLOW URINE VIA GRAVITY. DIGNISHIELD RECTAL TUBE IN PLACE, PATENT AND INTACT, DRAINING GREEN/BROWN LIQUID STOOL. CALL LIGHT LEFT WITHIN EASY REACH, BED IN LOWEST AND LOCKED POSITION. WILL CONTINUE TO CLOSELY MONITOR
[2018-08-30] MEDS: VANCOMYCIN 0.75 GM in IV D5W 250 ML IV SCH (23:07)
[2018-08-31] VITALS (84 sets, daily range): BP systolic 88–127; BP diastolic 30–84
[2018-08-31] MEDS: Potassium Chloride 20 MEQ in IV NS 0.9% 1,000 ML IV PRN ×2 (02:09→17:20)
[2018-08-31] MEDS: NOREPINEPHRINE 8 MG in IV D5W 500 ML IV PRN ×2 (02:10→17:22)
[2018-08-31] MEDS: CEFEPIME 2 GM in IV D5W 100 ML IV SCH ×2 (04:13→16:07)
[2018-08-31] MEDS: VANCOMYCIN FOR RECTAL ENEMA 500 MG RC SCH ×3 (04:13→20:56)
[2018-08-31 04:41] LABS: BASOPHILS # (AUTO) 0.2 /CMM (0.0-0.2); BASOPHILS % (AUTO) 0.8 % (0.0-2.0); HEMATOCRIT 28 % (33-45); HEMOGLOBIN 9.2 g/dL (11.5-14.8); LYMPHOCYTES # (AUTO) 0.4 /CMM (0.8-4.8); LYMPHOCYTES % (AUTO) 1.7 % (20.0-44.0); MEAN CORPUSCULAR HGB CONC 33 g/dl (31.0-36.0); MEAN CORPUSCULAR VOLUME 89 fL (82-100); MONOCYTES # (AUTO) 1.7 /CMM (0.1-1.30); NEUTROPHILS # (AUTO) 19.3 /CMM (1.8-8.9); NEUTROPHILS % (AUTO) 89.5 % (43.0-81.0); PLATELET COUNT (AUTO) 84 /CMM (150-450); RED BLOOD CELL COUNT(AUTO) 3.14 MIL/uL (4.0-5.2); WHITE BLOOD COUNT (AUTO) 21.6 K/uL (4.3-11.0)
[2018-08-31] MEDS: METRONIDAZOLE 500MG/ NS 100ML 500 MG in PREMIX 1 EA IV SCH ×4 (04:48→21:31)
[2018-08-31 05:30] LABS: MAGNESIUM 1.5 mg/dL (1.8-2.4); PHOSPHORUS 2.7 mg/dL (2.5-4.9)
[2018-08-31 05:51] LABS: BAND % (MANUAL) 7 % (0.0-5.0); LYMPHOCYTES % (MANUAL) 1 % (16-48); NEUTROPHILS % (MANUAL) 86 (42-76)
[2018-08-31 05:52] LABS: MONOCYTES % (MANUAL) 6 % (0-11.0)
--- NOTE | 2018-08-31 06:37 | NUR ---
TEXTED DR. GRIER FOR MRI APPROVAL.
--- NOTE | 2018-08-31 07:00 | NUR ---
PERIODONTAL ASSISTANT CLOSING NOTES PATIENT SLEEPING COMFORTABLY IN BED, NO ACUTE CHANGES THROUGHOUT THE SHIFT, REMAINS ON LEVOPHED DRIP @ 10 MCG/MIN. WILL ENDORSE THE PATIENT TO THE AM SHIFT NURSE FOR CONTINUITY OF CARE.
--- NOTE | 2018-08-31 07:10 | NUR ---
INSTRUCTOR PRODUCT INSPECTION INITIAL NOTES RECEIVED PT FROM NIGHTSHIFT RN IN STABLE COCTION .PT A/O X3. NO SOB OR ACUTE SIGNS OF DISTRESS NOTED. BREATHING IS EVEN AND UNLABORED. PT ON RA AND SATING WELL AT 98%. SR ON TELE MONITOR WITH A HR OF 88. RIGHT CHEST WALL PORT A CATH NOTED TO BE C/D/I AND PATENT. PT TOLERATING IV INFUSION OF NS WITH 20MEQ K ALONG WITH LEVO AT 10 MCG/MIN WELL. NO REDNESS OR SIGNS OF INFILTRATION NOTED. SIMPSON CATHETER NOTED TO BE C/D/I. FLEXI SEAL NOTED TO BE INTACT. BED IN LOW LOCKED POSITION, SIDE RAILS UP X3, CALL LIGHT WITHIN REACH, ISOLATION AND NEUTROPENIC PRECAUTIONS OBSERVED. WILL CONTINUE TO MONITOR
--- NOTE | 2018-08-31 07:45 | NUR ---
ON HOLD FOR NOW, DR. GRIER WILL LET US KNOW.
[2018-08-31] MEDS: PROSOURCE / PROSTAT (PYXIS) 30 ML UDC GT SCH ×3 (08:11→16:29)
--- NOTE | 2018-08-31 09:10 | NUR ---
LUMBAR PUNCTURE ON HOLD FOR TODAY PER RN.
--- NOTE | 2018-08-31 09:10 | NUR ---
DIE CAST TECHNICIAN CLOSING NOTES PT REMAINS STABLE. ALL NEEDS MET DURING SHIFT AD ORDERS CARRIED OUT ACCORDINGLY ALL DUE MEDS GIVEN. PRN CARE RENDERED. WOUND CARE RENDERED DIRECTED. PT REPOSITIONED AND TURNED PER HOSPITAL PROTOCOL. INVASIVE LINES REMAIN PATENT AND INTACT. SAFETY AND ISOLATION PRECAUTIONS REMAIN IN PLACE. ENDORSED TO NICKOLAS PASTRANA Addendum: 08/31/18 at 7 by KATLIN SARABIA RN THIS NOTE WAS COMPLETED AT 1909. PLEASE DISREGARD THE TIME
[2018-08-31] MEDS: THERAHONEY GEL 1.5 OZ TUBE TP SCH (09:11)
[2018-08-31] MEDS: LIDOCAINE MM SCH ×3 (09:12→16:30)
[2018-08-31] MEDS: NYSTATIN MM SCH ×3 (09:12→16:30)
[2018-08-31] MEDS: NYSTATIN OINT 100000 UNIT/G 15 GM TUBE TP SCH ×2 (09:12→16:30)
[2018-08-31 09:20] LABS: CALCIUM, SERUM 7.5 mg/dL (8.5-10.1); CREATININE 0.5 mg/dL (0.6-1.3); POTASSIUM 3.1 mmol/L (3.5-5.1)
[2018-08-31] MEDS: ALLOPURINOL 100 MG TABLET PO SCH (09:26)
--- NOTE | 2018-08-31 10:39 | NUR ---
MRI APPROVED. ON HOLD FOR TODAY PATIENT ON PRESSOR PER NURSE/PER ACOUSTIC SENSOR OPERATOR UNTIL FUTHER NOTICE.
[2018-08-31] MEDS: VANCOMYCIN 0.75 GM in IV D5W 250 ML IV SCH ×2 (10:48→23:29)
[2018-08-31] MEDS: Magnesium 1GM/D5W 100ML PREMIX 100 ML IV SCH ×2 (10:59→12:03)
--- NOTE | 2018-08-31 13:12 | NUR ---
MORTGAGE PROCESSOR NOTES: BLOOD CX F/U LAB CALLED IN REGARDS TO PT'S BLOOD CX WHICH WERE DRAWN ON THE 4TH OF THIS MONTH. INTENSIVE CARE UNIT NURSE PRELIM RESULTS RECEIVED OF YET. IMMIGRATION CONSULTANT TO INVESTIGATE AND F/U. CHARGE, INTENSIVE CARE UNIT NURSE, AND ID MADE AWARE
[2018-08-31] MEDS: MICAFUNGIN SODIUM 150 MG in IV NS 0.9% 100 ML IV SCH (14:57)
[2018-08-31] MEDS: MORPHINE SULFATE INJ 2 MG/ML DISP.SYRIN IV PRN (14:57)
--- NOTE | 2018-08-31 19:10 | NUR ---
PEDIATRIC LICENSED PRACTICAL NURSE NOTES RECEIVED PATIENT AWAKE,ALERT,CONVERSES,COHERENT AND APPROPRIATE,ORIENTED.NOT IN NAY DISTRESS,ON ROOM AIR.MOVES ALL EXTREMITIES,BUT LIMOTED ON BOTH LEGS DUE TO SEVERE EDEMA.PORTACATH INTACT @ RIGHT CHEST,,ON LEVOPHED DRIP FOR BP SUPPORT.WILL TITRATE TOLERATED. COMFORT CARE DONE,NEEDS ATTENDED.ON CONTACT ISOLATION FOR C .DIFF INFECTION,NEUTROPENIC PRECAUTION(BUT WBC NOW =21.6). COMFORT CARE DONE,NEEDS ATTENDED.
[2018-09-01] VITALS (82 sets, daily range): BP systolic 84–110; BP diastolic 42–85
--- NOTE | 2018-09-01 | NUR ---
PROCUREMENT AGENT NOTES REMAINS STABLE,NOT IN ANY DISTRESS,BP MONITORED ,WILL CONTINUE TO ATTEMPT TO WEAN DOWN LEVOPHED DRIP TOLERATED.NIT IN ANY DSITRESS,AWAKE,ALERT,REMAINS ORIENTED AND COHERENT.
[2018-09-01] MEDS: METRONIDAZOLE 500MG/ NS 100ML 500 MG in PREMIX 1 EA IV SCH ×4 (03:32→21:11)
[2018-09-01] MEDS: CEFEPIME 2 GM in IV D5W 100 ML IV SCH ×2 (03:45→15:56)
[2018-09-01] MEDS: VANCOMYCIN FOR RECTAL ENEMA 500 MG RC SCH ×3 (03:48→21:11)
--- NOTE | 2018-09-01 04:00 | NUR ---
REMAINS STABLE ,SLEEPS ON AND OFF REMAINS COHERENT ,ORIENTED AND APPROPRIATE.NEEDS ATTENDED. LEVOPHED DRIP NOW AT 5 MCG/MIN..WILL KEEP TITRATING TOLERATED. 0500 AM CARE/BATH ,SKIN CARE DONE.TOLERATED WELL.
[2018-09-01 04:26] LABS: BASOPHILS % (AUTO) 0.1 % (0.0-2.0); HEMATOCRIT 25 % (33-45); HEMOGLOBIN 8.2 g/dL (11.5-14.8); LYMPHOCYTES # (AUTO) 0.3 /CMM (0.8-4.8); LYMPHOCYTES % (AUTO) 1.7 % (20.0-44.0); MEAN CORPUSCULAR HGB CONC 33 g/dl (31.0-36.0); MEAN CORPUSCULAR VOLUME 89 fL (82-100); MONOCYTES # (AUTO) 1.7 /CMM (0.1-1.30); MONOCYTES % (AUTO) 8.4 % (2.0-12.0); NEUTROPHILS % (AUTO) 89.8 % (43.0-81.0); PLATELET COUNT (AUTO) 128 /CMM (150-450); RED BLOOD CELL COUNT(AUTO) 2.84 MIL/uL (4.0-5.2); WHITE BLOOD COUNT (AUTO) 20.1 K/uL (4.3-11.0)
[2018-09-01 04:46] LABS: BILIRUBIN,TOTAL 0.4 mg/dL (0.2-1.0); CALCIUM, SERUM 7.1 mg/dL (8.5-10.1); CREATININE 0.5 mg/dL (0.6-1.3); MAGNESIUM 1.6 mg/dL (1.8-2.4); PHOSPHORUS 2.3 mg/dL (2.5-4.9); POTASSIUM 3.1 mmol/L (3.5-5.1); TOTAL PROTEIN, SERUM 3.4 g/dL (6.4-8.2)
[2018-09-01 04:56] LABS: ALBUMIN 1.2 g/dL (3.4-5.0)
[2018-09-01] MEDS: Magnesium 1GM/D5W 100ML PREMIX 100 ML IV SCH ×2 (06:52→08:00)
[2018-09-01] MEDS: Potassium Chloride 20 MEQ in IV NS 0.9% 1,000 ML IV PRN (07:13)
[2018-09-01] MEDS: POTASSIUM CL. PREMIX PERIPHER. 50 ML IV SCH ×4 (07:54→11:01)
[2018-09-01] MEDS ORDERED: POTASSIUM PHOSPHATE MM 15 MMOL in IV D5W 250 ML IV SCH (08:00)
--- NOTE | 2018-09-01 08:23 | NUR ---
PT STILL ON LEVOPHED TODAY, SO UNABLE TO COME DOWN FOR LUMBAR PUNCTURE PER RN. RN WILL CALL BACK WHEN READY.
[2018-09-01] MEDS: PROSOURCE / PROSTAT (PYXIS) 30 ML UDC GT SCH ×3 (09:12→16:33)
[2018-09-01] MEDS: NYSTATIN OINT 100000 UNIT/G 15 GM TUBE TP SCH ×2 (09:13→16:34)
[2018-09-01] MEDS: THERAHONEY GEL 1.5 OZ TUBE TP SCH (09:13)
[2018-09-01] MEDS: LIDOCAINE MM SCH ×3 (09:13→16:34)
[2018-09-01] MEDS: NYSTATIN MM SCH ×3 (09:13→16:34)
[2018-09-01] MEDS: ALLOPURINOL 100 MG TABLET PO SCH (09:13)
[2018-09-01] MEDS: VANCOMYCIN 0.75 GM in IV D5W 250 ML IV SCH (10:52)
--- NOTE | 2018-09-01 11:09 | NUR ---
RN NOTE 0715: Received patient awake, A/Ox4. Tolerated room air. No respiratory distress noted. With RCW portacath intact, on IVF infusing as ordered. Will replete Mg, Phos and K today per previous nurse. On Levo @ 3mcg, will titrate as ordered. On Iso prec for CDiff and neutropenic, maintained and observed. With Nash cath intact, noted with clear brian colored urine drained to BSD. Rectal tube intact. SR on the monitor. 1015: S/E by feeder worker power unit operator, made aware patient refuses Prostat. 1100: Still with episodes of SBP 80's, keeping the Levo @ 3mcg. Turned and repositioned q2. Kept clean, warm and dry. Will continue to monitor.
[2018-09-01] MEDS: PANTOPRAZOLE 40 MG VIAL IV SCH (14:13)
[2018-09-01] MEDS: NOREPINEPHRINE 8 MG in IV D5W 500 ML IV PRN ×2 (16:01→18:31)
[2018-09-01] MEDS: MICAFUNGIN SODIUM 150 MG in IV NS 0.9% 100 ML IV SCH (16:25)
--- NOTE | 2018-09-01 18:29 | NUR ---
RN NOTE No any significant changes. Remained on 3 mcg of Levo.
--- NOTE | 2018-09-01 19:30 | NUR ---
PHOTOGRAPHIC SPECIALIST INITIAL SHIFT NOTES RECEIVED PATIENT IN BED, AWAKE, ALERT AND ORIENTED X 3, ABLE TO VERBALIZE NEEDS. ACCOUNTS PAYABLE TECHNICIAN SHOWS SINUS RHYTHM, HR 82 BPM AT THIS TIME. TOLERATING ROOM AIR WELL, FREE FROM ANY S/S OF RESPIRATORY DISTRESS. RIGHT CHEST WALL PORT-A-CATH PATENT AND INTACT, FLUSHED WITH NS, NOTED WITH GOOD BLOOD RETURN, IV FLUIDS KCL 20MEQ IN NS INFUSING AT 70 ML/HR, LEVOPHED DRIP @ 3MCG/MIN. SIMPSON CATHETER DRAINING CLEAR YELLOW URINE VIA GRAVITY. DIGNISHIELD RECTAL TUBE IN PLACE, PATENT AND INTACT, DRAINING GREEN/BROWN LIQUID STOOL. CALL LIGHT LEFT WITHIN EASY REACH, BED IN LOWEST AND LOCKED POSITION. WILL CONTINUE TO CLOSELY MONITOR
[2018-09-01] MEDS: VANCOMYCIN HCL 125 MG/2.5 ML ORAL.SUSP PO SCH (23:24)
[2018-09-02] VITALS (86 sets, daily range): BP systolic 88–127; BP diastolic 33–71
[2018-09-02] MEDS: Potassium Chloride 20 MEQ in IV NS 0.9% 1,000 ML IV PRN ×2 (00:36→15:18)
[2018-09-02] MEDS: CEFEPIME 2 GM in IV D5W 100 ML IV SCH ×2 (03:54→16:03)
[2018-09-02] MEDS: METRONIDAZOLE 500MG/ NS 100ML 500 MG in PREMIX 1 EA IV SCH ×4 (04:26→21:37)
[2018-09-02] MEDS: VANCOMYCIN FOR RECTAL ENEMA 500 MG RC SCH ×3 (04:50→21:37)
[2018-09-02 05:04] LABS: BASOPHILS % (AUTO) 0.2 % (0.0-2.0); HEMATOCRIT 26 % (33-45); HEMOGLOBIN 8.5 g/dL (11.5-14.8); LYMPHOCYTES # (AUTO) 0.4 /CMM (0.8-4.8); LYMPHOCYTES % (AUTO) 2.5 % (20.0-44.0); MEAN CORPUSCULAR HGB CONC 33 g/dl (31.0-36.0); MEAN CORPUSCULAR VOLUME 88 fL (82-100); MONOCYTES # (AUTO) 1.6 /CMM (0.1-1.30); MONOCYTES % (AUTO) 10.8 % (2.0-12.0); NEUTROPHILS # (AUTO) 12.6 /CMM (1.8-8.9); NEUTROPHILS % (AUTO) 86.5 % (43.0-81.0); PLATELET COUNT (AUTO) 207 /CMM (150-450); RED BLOOD CELL COUNT(AUTO) 2.94 MIL/uL (4.0-5.2); WHITE BLOOD COUNT (AUTO) 14.6 K/uL (4.3-11.0)
[2018-09-02 05:13] LABS: CALCIUM, SERUM 7.5 mg/dL (8.5-10.1); CREATININE 0.4 mg/dL (0.6-1.3); MAGNESIUM 1.7 mg/dL (1.8-2.4); PHOSPHORUS 2.3 mg/dL (2.5-4.9); POTASSIUM 3.7 mmol/L (3.5-5.1)
[2018-09-02] MEDS: VANCOMYCIN HCL 125 MG/2.5 ML ORAL.SUSP PO SCH ×3 (05:57→17:27)
--- NOTE | 2018-09-02 06:00 | NUR ---
MOBILE DESIGNER NOTES PATIENT SEEN AND EXAMINED BY DR WILLARD
[2018-09-02 06:02] LABS: BAND % (MANUAL) 10 % (0.0-5.0); METAMYELOCYTES % 4 % (0-0); MONOCYTES % (MANUAL) 4 % (0-11.0); MYELOCYTES % 2 % (0-0); NEUTROPHILS % (MANUAL) 79 (42-76); REACTIVE LYMPHOCYTES 1 % (0-0)
[2018-09-02 06:19] LABS: LYMPHOCYTES % (MANUAL) 0 % (16-48)
[2018-09-02] MEDS: NEUTRA PHOS 1 POWD.PACKET PO SCH ×2 (06:49→14:30)
[2018-09-02] MEDS: HYDROCORTISONE SOD SUCCINATE 100 MG/2 ML VIAL IV SCH ×4 (06:49→16:53)
[2018-09-02] MEDS: Magnesium 1GM/D5W 100ML PREMIX 100 ML IV SCH ×2 (06:49→08:11)
--- NOTE | 2018-09-02 07:00 | NUR ---
DINKEY LOCOMOTIVE OPERATOR CLOSING NOTES NO SIGNIFICANT CHANGES THROUGHOUT THE SHIFT, PATIENT REMAINS ON LEVOPHED DRIP @ 3MCG/MIN. WILL ENDORSE TH [place] TO THE AM SHIFT NURSE FOR CONTINUITY OF CARE
[2018-09-02] MEDS: THERAHONEY GEL 1.5 OZ TUBE TP SCH (08:11)
[2018-09-02] MEDS: PROSOURCE / PROSTAT (PYXIS) 30 ML UDC GT SCH ×3 (08:11→16:04)
[2018-09-02] MEDS: NYSTATIN MM SCH ×3 (08:12→16:54)
[2018-09-02] MEDS: LIDOCAINE MM SCH ×3 (08:12→16:54)
[2018-09-02] MEDS: NYSTATIN OINT 100000 UNIT/G 15 GM TUBE TP SCH ×2 (08:12→16:54)
[2018-09-02] MEDS: ALLOPURINOL 100 MG TABLET PO SCH (08:12)
--- NOTE | 2018-09-02 09:22 | NUR ---
RN NOTE 0715: Received patient awake, A/Ox4. Tolerated room air. With RCW Portacath intact. IVF infusing as ordered. On Levo @ 3mcg, will titrate as ordered. With Nash cath intact, noted with pale yellow urine drained to BSD. With Rectal tube on, noted with dark green loose stool. On Iso prec for CDiff and neutropenic, maintained and observed. 0920: No any significant changes noted at this time. Will continue to monitor.
[2018-09-02] MEDS ORDERED: SUCRALFATE 1 G TABLET PO SCH (12:00)
[2018-09-02] MEDS: PANTOPRAZOLE 40 MG VIAL IV SCH (12:55)
[2018-09-02] MEDS ORDERED: NEUTRA PHOS 1 POWD.PACKET PO ONE (15:30)
[2018-09-02] MEDS ORDERED: NEUTRA PHOS 1 POWD.PACKET PO SCH (16:30)
[2018-09-02] MEDS: SUCRALFATE 1 G/10 ML UDC PO SCH ×2 (16:53→21:36)
--- NOTE | 2018-09-02 20:01 | NUR ---
SPAR FINISHER INITIAL SHIFT NOTES RECEIVED PATIENT IN BED, AWAKE, HAVING DINNER, ALERT AND ORIENTED X 3, ABLE TO VERBALIZE NEEDS. CRANIOLOGIST SHOWS SINUS RHYTHM, HR 92 BPM AT THIS TIME. TOLERATING ROOM AIR WELL, FREE FROM ANY S/S OF RESPIRATORY DISTRESS. RIGHT CHEST WALL PORT-A-CATH PATENT AND INTACT, FLUSHED WITH NS, NOTED WITH GOOD BLOOD RETURN, IV FLUIDS KCL 20MEQ IN NS INFUSING AT 70 ML/HR, S/P LEVOPHED DRIP @ 3MCG/MIN. SIMPSON CATHETER DRAINING CLEAR YELLOW URINE VIA GRAVITY. RECTAL TUBE IN PLACE, PATENT AND INTACT, DRAINING GREEN/BROWN LIQUID STOOL. CALL LIGHT LEFT WITHIN EASY REACH, BED IN LOWEST AND LOCKED POSITION. WILL CONTINUE TO CLOSELY MONITOR
[2018-09-03] VITALS (32 sets, daily range): BP systolic 93–136; BP diastolic 46–89
[2018-09-03] MEDS: VANCOMYCIN HCL 125 MG/2.5 ML ORAL.SUSP PO SCH ×5 (00:47→23:02)
[2018-09-03] MEDS: METRONIDAZOLE 500MG/ NS 100ML 500 MG in PREMIX 1 EA IV SCH ×4 (03:29→21:37)
[2018-09-03] MEDS: CEFEPIME 2 GM in IV D5W 100 ML IV SCH ×2 (04:09→16:50)
[2018-09-03 05:10] LABS: CALCIUM, SERUM 7.1 mg/dL (8.5-10.1); CREATININE 0.4 mg/dL (0.6-1.3)
[2018-09-03] MEDS: VANCOMYCIN FOR RECTAL ENEMA 500 MG RC SCH ×3 (05:15→21:38)
--- NOTE | 2018-09-03 06:14 | NUR ---
MANAGER GLOBAL COMMUNICATIONS CLOSING SHIFT NOTES ENDORSED PATIENT IN BED, ASLEEP, ALERT AND ORIENTED X 3, ABLE TO VERBALIZE NEEDS. TOOL AND DIE MACHINIST SHOWS SINUS RHYTHM, HR 80'S BPM AT THIS TIME. TOLERATING ROOM AIR WELL, FREE FROM ANY S/S OF RESPIRATORY DISTRESS. RIGHT CHEST WALL PORT-A-CATH PATENT AND INTACT, FLUSHED WITH NS, NOTED WITH GOOD BLOOD RETURN, IV FLUIDS KCL 20MEQ IN NS AT 70 ML/HR STOPPED, MAL NOTIFIED K+ 7.1, PHOS 8.1 WITH ORDER TO REDRAW K+ AND PHOS, S/P LEVOPHED DRIP @ 3MCG/MIN. SIMPSON CATHETER DRAINING CLEAR YELLOW URINE VIA GRAVITY. RECTAL TUBE IN PLACE, PATENT AND INTACT, DRAINING GREEN/BROWN LIQUID STOOL. CALL LIGHT LEFT WITHIN EASY REACH, BED IN LOWEST AND LOCKED POSITION. WILL CONTINUE TO CLOSELY MONITOR
[2018-09-03 07:26] LABS: PHOSPHORUS 2.7 mg/dL (2.5-4.9); POTASSIUM 3.8 mmol/L (3.5-5.1)
[2018-09-03] MEDS: SUCRALFATE 1 G/10 ML UDC PO SCH ×4 (08:22→21:38)
[2018-09-03] MEDS: ALLOPURINOL 100 MG TABLET PO SCH (08:22)
[2018-09-03] MEDS: HYDROCORTISONE SOD SUCCINATE 100 MG/2 ML VIAL IV SCH ×3 (08:22→17:32)
[2018-09-03] MEDS: NYSTATIN OINT 100000 UNIT/G 15 GM TUBE TP SCH ×2 (08:36→17:35)
[2018-09-03] MEDS: THERAHONEY GEL 1.5 OZ TUBE TP SCH (08:37)
[2018-09-03] MEDS: LIDOCAINE MM SCH ×3 (08:37→17:35)
[2018-09-03] MEDS: NYSTATIN MM SCH ×3 (08:37→17:35)
[2018-09-03] MEDS: PROSOURCE / PROSTAT (PYXIS) 30 ML UDC GT SCH ×3 (09:00→17:34)
[2018-09-03] MEDS: MORPHINE SULFATE INJ 2 MG/ML DISP.SYRIN IV PRN (10:57)
[2018-09-03] MEDS: PANTOPRAZOLE 40 MG TABLET.DR PO SCH (10:57)
--- NOTE | 2018-09-03 12:00 | NUR ---
BEEF BREAKER NOTES PT TRANSFERRED FROM ICU. VITAL SIGNS STABLE. PT HAS A RIGHT HAND #20 IV INTACT AND PATENT. PT HAS A PORTACATH ON RIGHT CHEST WALL. PT HAS FLEXISEAL INTACT AND DRAINING WELL. PT HAS SIMPSON CATHETER INTACT AND DRAINING WELL. SAFETY PRECAUTIONS IN PLACE, BED IN LOWEST LOCKED POSITION, X2 SIDE RAILS UP AND CALL LIGHT WITHIN REACH. WILL CONTINUE TO MONITOR.
[2018-09-03] MEDS: CEFTRIAXONE 1 G in IV D5W 50 ML IV SCH (18:26)
--- NOTE | 2018-09-03 18:54 | NUR ---
RN CLOSING NOTES PT AWAKE AND RESTING IN BED. PT HAS POOR PO INTAKE. NO COMPLAINTS OF PAIN, SOB OR DISTRESS. PT HAS A RIGHT HAND #20 IV INTACT AND PATENT. PT HAS A PORTACATH ON RIGHT CHEST WALL. PT HAS FLEXISEAL INTACT AND DRAINING WELL. PT HAS SIMPSON CATHETER INTACT AND DRAINING WELL. SAFETY PRECAUTIONS IN PLACE, BED IN LOWEST LOCKED POSITION, X2 SIDE RAILS UP AND CALL LIGHT WITHIN REACH. WILL ENDORSE TO WELDING PROCESS SPECIALIST NURSE FOR CONTINUITY OF CARE.
--- NOTE | 2018-09-03 19:40 | NUR ---
RN OPENING NOTES RECEIVED REPORT FROM [facility] NICKOLAS BOOKER. FOUND Pt RESTING IN BED COMFORTABLY, EASILY AWAKENED. NO S/S OF ACUTE DISTRESS OR SOB NOTED. RESPIRATIONS EVEN AND UNLABORED. Pt IS A/OX4, VERBAL ABLE TO MAKE NEEDS KNOWN. IV ACCES ON RHAND #20G @TKO. ON CDIFF ISO. FLEXISEAL IN PLACE. SAFETY MEASURES IN PLACE. BED LOW, LOCKED, HOB ELEVATED, SIDE RAILS UP, CALL LIGHT AND BEDSIDE TABLE WITHIN REACH. BED ALARM ON. WILL CONTINUE TO MONITOR Pt's CONDITION AND SAFETY THROUGHOUT THE NIGHT.
--- NOTE | 2018-09-03 22:35 | NUR ---
RN NOTES Pt REFUSED PICTURES FOR TONIGHT. Pt STATED THAT SHE WANTED TO GET SOME SLEEP TONIGHT SINCE SHE HAS NOT BEEN ABLE TO SLEEP WELL FOR THE PAST FEW NIGHTS AND IS COMFORTABLE AT THE MOMENT AND WISHES NOT TO BE DISTURBED.
[2018-09-04] MEDS: METRONIDAZOLE 500MG/ NS 100ML 500 MG in PREMIX 1 EA IV SCH ×2 (04:29→09:55)
[2018-09-04] MEDS: VANCOMYCIN FOR RECTAL ENEMA 500 MG RC SCH (05:42)
[2018-09-04] MEDS: VANCOMYCIN HCL 125 MG/2.5 ML ORAL.SUSP PO SCH ×3 (05:42→17:35)
[2018-09-04 06:40] LABS: CALCIUM, SERUM 8.4 mg/dL (8.5-10.1); CREATININE 0.4 mg/dL (0.6-1.3); POTASSIUM 3.7 mmol/L (3.5-5.1)
[2018-09-04] MEDS: SUCRALFATE 1 G/10 ML UDC PO SCH ×4 (06:59→22:03)
--- NOTE | 2018-09-04 07:06 | NUR ---
RN CLOSING NOTES NO SIGNIFICANT CHANGES IN Pt's CONDITION. Pt REMAINS STABLE PER BASELINE. NO S/S OF ACUTE DISTRESS OR SOB NOTED DURING THE NIGHT. Pt IS RESTING COMFORTABLY IN BED. RESPIRATIONS EVEN AND UNLABORED. ALL NEEDS MET AND ATTENDED TO. SAFETY MEASURES IN PLACE. WILL ENDORSE TO DAYSHIFT RN FOR Pt's VICTORIANO.
[2018-09-04 08:00] VITALS: BP 114/63
--- NOTE | 2018-09-04 08:00 | NUR ---
MS RN NOTES PATIENT IN BED RESTING ALERT, ORIENTED X3. PATIENT WITH RECTAL TUBE INTACT PATENT. DRAINING BROW LIQUID STOOL. PATIENT ALSO WITH SIMPSON CATH DRAINING YELLOW, CLEAR URIN. PERIPHERAL IV INTACT PATENT. BED IN LOW LOCKED POSITION, CALL LIGHT WITHIN REACH. WILL CONTINUE TO MONITOR.
[2018-09-04] MEDS: PANTOPRAZOLE 40 MG TABLET.DR PO SCH (09:18)
[2018-09-04] MEDS: HYDROCORTISONE SOD SUCCINATE 100 MG/2 ML VIAL IV SCH ×2 (09:18→17:30)
[2018-09-04] MEDS: ALLOPURINOL 100 MG TABLET PO SCH (09:18)
[2018-09-04] MEDS: LIDOCAINE MM SCH ×3 (09:18→17:30)
[2018-09-04] MEDS: NYSTATIN MM SCH ×3 (09:18→17:30)
[2018-09-04] MEDS: PROSOURCE / PROSTAT (PYXIS) 30 ML UDC GT SCH ×3 (09:19→17:30)
[2018-09-04] MEDS: NYSTATIN OINT 100000 UNIT/G 15 GM TUBE TP SCH ×2 (09:20→17:31)
[2018-09-04] MEDS: THERAHONEY GEL 1.5 OZ TUBE TP SCH (09:20)
--- NOTE | 2018-09-04 10:49 | NUR ---
MS RN NOTES PATIENT SEEN BY ELMA MARTIN NEUROLOGY VERIFIED IF SPINAL TAP IS STILL NEEDED, ORDERS RECEIVED TO CANCELL ORDER PATIENT NO LONGER NEEDS IT.
[2018-09-04] MEDS: ENOXAPARIN SODIUM 40 MG/0.4 ML DISP.SYRIN SQ SCH (11:27)
[2018-09-04 16:00] VITALS: BP 117/76
[2018-09-04] MEDS: CEFTRIAXONE 1 G in IV D5W 50 ML IV SCH (17:30)
--- NOTE | 2018-09-04 19:45 | NUR ---
RN OPENING NOTES RECEIVED REPORT FROM DAYSHIFT NICKOLAS WISEMAN. FOUND Pt AWAKE, RESTING IN BED COMFORTABLY. NO S/S OF ACUTE DISTRESS OR SOB NOTED. RESPIRATIONS EVEN AND UNLABORED. Pt IS A/OX3, VERBAL ABLE TO MAKE NEEDS KNOWN. IV ACCES ON RHAND #20G @TKO. ON CDIFF ISO. FLEXISEAL IN PLACE. SIMPSON CATHETER IN PLACE, DRAINING WELL. SAFETY MEASURES IN PLACE. BED LOW, LOCKED, HOB ELEVATED, SIDE RAILS UP, CALL LIGHT AND BEDSIDE TABLE WITHIN REACH. ON KCL MATTRESS. WILL CONTINUE TO MONITOR Pt's CONDITION AND SAFETY THROUGHOUT THE NIGHT.
[2018-09-04 20:00] VITALS: BP 118/68
[2018-09-05] MEDS: VANCOMYCIN HCL 125 MG/2.5 ML ORAL.SUSP PO SCH ×4 (00:08→17:05)
--- NOTE | 2018-09-05 02:21 | NUR ---
RN MS NOTES TO CONTINUE CARE FOR NICKOLAS ONEAL. PATIENT IS RESTING IN BED. EASILY AROUSABLE. BREATHING EVEN AND UNLABORED. NO SOB NOTED. TOLERATING ROOM AIR. NO S/S OF PAIN OR DISCOMFORT. NO FACIAL GRIMACING. IV ON RIGHT HAND G#20 INTACT AND PATENT. SKIN DRY AND WARM TO TOUCH. AFEBRILE. SIMPSON CATH INTACT AND DRAINING WELL. FLEXI SEAL IN PLACE. ALL OTHER NEEDS MET. SAFETY MEASURES IN PLACE. CALL LIGHT WITHIN REACH. WILL CONTINUE O MONITOR.
--- NOTE | 2018-09-05 02:23 | NUR ---
RN NOTES ENDORSED TO RUBIA OLMOS FOR Pt's VICTORIANO. Pt IS ASLEEP IN BED. NO S/S OF ACUTE DISTRESS OR SOB NOTED. RESPIRATIONS EVEN AND UNLABORED. SAFETY MEASURES IN PLACE.
[2018-09-05 06:20] LABS: HEMATOCRIT 27 % (33-45); HEMOGLOBIN 8.8 g/dL (11.5-14.8); LYMPHOCYTES # (AUTO) 0.5 /CMM (0.8-4.8); LYMPHOCYTES % (AUTO) 3.1 % (20.0-44.0); MEAN CORPUSCULAR HGB CONC 33 g/dl (31.0-36.0); MEAN CORPUSCULAR VOLUME 89 fL (82-100); MONOCYTES # (AUTO) 2.1 /CMM (0.1-1.30); NEUTROPHILS # (AUTO) 13.5 /CMM (1.8-8.9); NEUTROPHILS % (AUTO) 83.9 % (43.0-81.0); PLATELET COUNT (AUTO) 517 /CMM (150-450); RED BLOOD CELL COUNT(AUTO) 3.04 MIL/uL (4.0-5.2); WHITE BLOOD COUNT (AUTO) 16.1 K/uL (4.3-11.0)
[2018-09-05] MEDS: SUCRALFATE 1 G/10 ML UDC PO SCH ×4 (06:36→22:33)
[2018-09-05 06:51] LABS: BAND % (MANUAL) 3 % (0.0-5.0); LYMPHOCYTES % (MANUAL) 2 % (16-48); METAMYELOCYTES % 1 % (0-0); MONOCYTES % (MANUAL) 10 % (0-11.0); MYELOCYTES % 2 % (0-0); NEUTROPHILS % (MANUAL) 82 (42-76)
--- NOTE | 2018-09-05 06:51 | NUR ---
RN MS CLOSING NOTES PATIENT IS RESTING IN BED. NO ACUTE CHANGES THROUGHOUT SHIFT. BREATHING EVEN AND UNLABORED. NO SOB NOTED. TOLERATING ROOM AIR. NO S/S OF PAIN OR DISCOMFORT. NO FACIAL GRIMACING. IV ON RIGHT HAND G#20 INTACT AND PATENT. SKIN DRY AND WARM TO TOUCH. AFEBRILE. SIMPSON CATH INTACT AND DRAINING WELL. FLEXI SEAL IN PLACE WITH NEW BAG. SACRAL/BUTTOCKS DRESSING CHANGED. ALL OTHER NEEDS MET. SAFETY MEASURES IN PLACE. CALL LIGHT WITHIN REACH. WILL ENDORSE TO ONCOMING NURSE FOR VICTORIANO.
[2018-09-05 06:57] LABS: ALBUMIN 1.6 g/dL (3.4-5.0); BILIRUBIN,TOTAL 0.2 mg/dL (0.2-1.0); CALCIUM, SERUM 8.6 mg/dL (8.5-10.1); CREATININE 0.5 mg/dL (0.6-1.3); POTASSIUM 3.2 mmol/L (3.5-5.1); TOTAL PROTEIN, SERUM 4.1 g/dL (6.4-8.2)
[2018-09-05 08:00] VITALS: BP 126/76
[2018-09-05] MEDS: ENOXAPARIN SODIUM 40 MG/0.4 ML DISP.SYRIN SQ SCH (08:51)
[2018-09-05] MEDS: ALLOPURINOL 100 MG TABLET PO SCH (08:51)
[2018-09-05] MEDS: PANTOPRAZOLE 40 MG TABLET.DR PO SCH (08:51)
[2018-09-05] MEDS: HYDROCORTISONE SOD SUCCINATE 100 MG/2 ML VIAL IV SCH ×2 (08:52→16:50)
[2018-09-05] MEDS: PROSOURCE / PROSTAT (PYXIS) 30 ML UDC GT SCH ×3 (08:55→16:56)
[2018-09-05] MEDS: POTASSIUM CHLORIDE 20 MEQ TAB.PRT.SR PO SCH ×3 (10:30→12:45)
[2018-09-05] MEDS: LIDOCAINE MM SCH ×3 (11:29→16:53)
[2018-09-05] MEDS: NYSTATIN MM SCH ×3 (11:29→16:53)
[2018-09-05] MEDS: NYSTATIN OINT 100000 UNIT/G 15 GM TUBE TP SCH ×2 (11:32→16:53)
[2018-09-05] MEDS: THERAHONEY GEL 1.5 OZ TUBE TP SCH (11:33)
--- NOTE | 2018-09-05 12:02 | NUR ---
RN MS NOTES Received patient on room air, no sob or ventilatory distress noted. patient is not complaining of any pain. Nash cath is intact and draining well, flexi seal in place as well. call light within reach, safety measures in place. vital signs stable
--- NOTE | 2018-09-05 13:00 | NUR ---
RN MS NOTES PT IN BED, RESTING, AWAKE, ALERT AND VERBALLY RESPONSIVE, NO COMPLAINT OF PAIN, NOT IN DISTRESS, SEEN BY DR. SUAREZ, PLAN OF CARE DISCUSSED WITH PT, VERBALIZED UNDERSTANDING, ENCOURAGED INCREASED PO INTAKE, CALL LIGHT WITHIN REACH, NEEDS ATTENDED.
[2018-09-05 16:00] VITALS: BP 130/78
[2018-09-05] MEDS: CEFTRIAXONE 1 G in IV D5W 50 ML IV SCH (17:24)
--- NOTE | 2018-09-05 18:20 | NUR ---
RN CLOSING NOTES Patient remains on room air, patients R hand gauge 20 remains patent. Patient has no sob or ventilatory distress on room air. patients vital sign stable all day. patients call light within reach, safety measures in place.
[2018-09-05 20:00] VITALS: BP 124/67
[2018-09-05 20:12] VITALS: BP 124/67
[2018-09-06] MEDS: VANCOMYCIN HCL 125 MG/2.5 ML ORAL.SUSP PO SCH ×5 (00:42→23:07)
--- NOTE | 2018-09-06 02:06 | NUR ---
MS RN OPENING NOTES Received patient awake on bed with KCI mattress, denies discomfort at this time. On RA, no SOB/respiratory distress at this time. Call light at bedside. Will continue to monitor patient accordingly.
--- NOTE | 2018-09-06 06:37 | NUR ---
MS RN CLOSING NOTES Patient asleep, easily aroused. Denies discomfort at this time, only when repositioning and changing sacral wound dressings. With patent rectal tube in place with 100cc liquid black stool noted, with patent FC indwelling well. With patent peripheral IV line with NS @ TKO. All nursing needs attended. Due meds given as ordered. Afebrile the whole shift. No new complaints made. Kept bed low and locked, call light at bedside. Endorsed to the next shift.
[2018-09-06 06:41] LABS: ALBUMIN 1.5 g/dL (3.4-5.0); BILIRUBIN,TOTAL 0.3 mg/dL (0.2-1.0); CALCIUM, SERUM 8.3 mg/dL (8.5-10.1); CREATININE 0.4 mg/dL (0.6-1.3); MAGNESIUM 1.5 mg/dL (1.8-2.4); PHOSPHORUS 2.4 mg/dL (2.5-4.9); POTASSIUM 3.1 mmol/L (3.5-5.1)
[2018-09-06] MEDS ORDERED: POTASSIUM CHLORIDE 20 MEQ TAB.PRT.SR PO SCH (07:00)
--- NOTE | 2018-09-06 07:10 | NUR ---
MS/RN - Assessment Patient awake, A/Ox4, no complaints overnight, afebrile, tolerated room air, denies pain. Saline lock on the right hand is patent, intact, with no signs of infiltration. Nash cath intact, noted with clear brian colored urine, rectal tube in place. Labs reviewed, noted with low magnesium, phosphorus, and potassium, replete electrolytes as ordered. Will do wound treatment as ordered. Patient with C. diff, enteric contact isolation maintained. Patient updated on plan of care. Will continue with current medical management.
[2018-09-06] MEDS: SUCRALFATE 1 G/10 ML UDC PO SCH ×4 (07:24→21:00)
[2018-09-06] MEDS: NEUTRA PHOS 1 POWD.PACKET PO SCH ×2 (07:24→14:18)
[2018-09-06] MEDS: Magnesium 1GM/D5W 100ML PREMIX 100 ML IV SCH ×4 (07:25→11:15)
[2018-09-06 08:00] VITALS: BP 126/62
[2018-09-06] MEDS: PANTOPRAZOLE 40 MG TABLET.DR PO SCH (08:13)
[2018-09-06] MEDS: POTASSIUM CHLORIDE 20 MEQ POWDER PACKET PO SCH ×4 (08:13→11:17)
[2018-09-06] MEDS: ALLOPURINOL 100 MG TABLET PO SCH (08:13)
[2018-09-06] MEDS: PROSOURCE / PROSTAT (PYXIS) 30 ML UDC GT SCH ×3 (08:14→16:24)
[2018-09-06] MEDS: LIDOCAINE MM SCH ×3 (08:16→16:24)
[2018-09-06] MEDS: NYSTATIN MM SCH ×3 (08:16→16:24)
[2018-09-06] MEDS: ENOXAPARIN SODIUM 40 MG/0.4 ML DISP.SYRIN SQ SCH (08:17)
[2018-09-06] MEDS: NYSTATIN OINT 100000 UNIT/G 15 GM TUBE TP SCH ×2 (08:18→16:24)
[2018-09-06] MEDS: THERAHONEY GEL 1.5 OZ TUBE TP SCH (08:18)
[2018-09-06] MEDS ORDERED: HYDROCORTISONE SOD SUCCINATE 100 MG/2 ML VIAL IV SCH (09:00)
[2018-09-06 09:15] LABS: BASOPHILS % (AUTO) 0.2 % (0.0-2.0); HEMATOCRIT 27 % (33-45); HEMOGLOBIN 8.7 g/dL (11.5-14.8); LYMPHOCYTES # (AUTO) 0.4 /CMM (0.8-4.8); LYMPHOCYTES % (AUTO) 2.6 % (20.0-44.0); MEAN CORPUSCULAR HGB CONC 33 g/dl (31.0-36.0); MEAN CORPUSCULAR VOLUME 91 fL (82-100); MONOCYTES # (AUTO) 1.6 /CMM (0.1-1.30); MONOCYTES % (AUTO) 11.8 % (2.0-12.0); NEUTROPHILS # (AUTO) 11.7 /CMM (1.8-8.9); NEUTROPHILS % (AUTO) 85.4 % (43.0-81.0); PLATELET COUNT (AUTO) 535 /CMM (150-450); RED BLOOD CELL COUNT(AUTO) 2.93 MIL/uL (4.0-5.2); WHITE BLOOD COUNT (AUTO) 13.7 K/uL (4.3-11.0)
[2018-09-06 09:29] LABS: BAND % (MANUAL) 1 % (0.0-5.0); LYMPHOCYTES % (MANUAL) 5 % (16-48); MONOCYTES % (MANUAL) 10 % (0-11.0); NEUTROPHILS % (MANUAL) 84 (42-76)
[2018-09-06] MEDS: POTASSIUM CL. PREMIX PERIPHER. 50 ML IV SCH ×4 (10:06→13:19)
[2018-09-06 16:00] VITALS: BP_SYST 125; BP_DIAS 72; BP_DIAS 90
[2018-09-06] MEDS: CEFTRIAXONE 1 G in IV D5W 50 ML IV SCH (17:33)
--- NOTE | 2018-09-06 18:50 | NUR ---
MS/RN - End of shift summary Patient states feeling better, remain afebrile, tolerated room air, saline lock on the right hand is patent, intact, with no signs of infiltration. Wound care done, magnesium, potassium and phosphorus replacement given as ordered. Nash and rectal tube intact and patent. Patient refused to be repositioned at times. Educated on the importance for skin management and to prevent further skin breakdown. All need attended. Will endorse to the night nurse accordingly.
--- NOTE | 2018-09-06 19:00 | NUR ---
MS RN RECEIVE PT IN BED. A/O X 3. RESPIRATIONS EVEN AND UNLABORED, NO SOB NOTED, NO DISTRESS, SAFETY MEASURES IN PLACE. WILL CONTINUE TO MONITOR.
[2018-09-06 20:00] VITALS: BP 121/62
[2018-09-07] MEDS: VANCOMYCIN HCL 125 MG/2.5 ML ORAL.SUSP PO SCH ×4 (05:30→23:52)
--- NOTE | 2018-09-07 06:32 | NUR ---
S/B DR. SUAREZ PER REMOVE RECTAL TUBE AND MONITOR NOTED AND CARRIED OUT. REMOVED RECTAL TUBE TOLERATED PROCEDURE WELL.
--- NOTE | 2018-09-07 06:33 | NUR ---
RN CLOSING NOTE AWAKE WATCHING TV, NOT IN DISTRESS, STABLE. NEEDS ATTENDED AND ANTICIPATED, KEPT CLEAN AND DRY AND COMFORT. TOLERATING ROOM AIR 98%. REPOSITIONED EVERY 2 HOURS. GOOD SKIN CARE PROVIDED, NURSING CARE RENDERED, SAFETY MEASURES IN PLACE, BED IN LOW LOCKED POSITION, CALL LIGHT WITHIN EASY REACH. ENDORSE TO NEXT SHIFT CONTINUITY OF CARE.
[2018-09-07 08:00] VITALS: BP 125/63
--- NOTE | 2018-09-07 08:00 | NUR ---
ms rn received on bed, awake,alert,oriented x4,not in any form of distress, respirations even and unlabored,no sob noted, lungs are diminished,abdomen soft,positive bowel sounds, denies pain at this time, isolation for cdiff, all needs attended.
[2018-09-07] MEDS: PROSOURCE / PROSTAT (PYXIS) 30 ML UDC GT SCH ×3 (09:00→17:00)
[2018-09-07] MEDS: LIDOCAINE MM SCH ×3 (09:00→17:00)
[2018-09-07] MEDS: NYSTATIN OINT 100000 UNIT/G 15 GM TUBE TP SCH ×2 (09:00→17:00)
[2018-09-07] MEDS: NYSTATIN MM SCH ×3 (09:00→17:00)
--- NOTE | 2018-09-07 09:30 | NUR ---
ms gordon breakfast served due meds given.tolerated well.
[2018-09-07] MEDS: PANTOPRAZOLE 40 MG TABLET.DR PO SCH (09:54)
[2018-09-07] MEDS: ALLOPURINOL 100 MG TABLET PO SCH (09:54)
--- NOTE | 2018-09-07 09:55 | NUR ---
MS RN PATIENT HAD LOOSE STOOL, CHANGED BY RADIAL DRILL OPERATOR FOR PLASTIC
[2018-09-07] MEDS: ENOXAPARIN SODIUM 40 MG/0.4 ML DISP.SYRIN SQ SCH (09:57)
[2018-09-07] MEDS: SUCRALFATE 1 G/10 ML UDC PO SCH ×4 (10:06→21:03)
[2018-09-07] MEDS: POTASSIUM CHLORIDE 20 MEQ TAB.PRT.SR PO SCH ×5 (10:07→18:13)
[2018-09-07] MEDS: Magnesium 1GM/D5W 100ML PREMIX 100 ML IV SCH ×2 (10:07→12:30)
--- NOTE | 2018-09-07 15:30 | NUR ---
MS RN PATIENT HAD ANOTHER LOOSE STOOL, DIAPER WAS CHANGE BY TRANSLATOR/INTERPRETER,ALL NEEDS ATTENDED.
[2018-09-07 16:00] VITALS: BP 130/70
[2018-09-07] MEDS: APIXABAN 2.5 MG TABLET PO SCH (18:22)
[2018-09-07] MEDS: CEFTRIAXONE 1 G in IV D5W 50 ML IV SCH (18:25)
[2018-09-07] MEDS: THERAHONEY GEL 1.5 OZ TUBE TP SCH (18:43)
--- NOTE | 2018-09-07 18:47 | NUR ---
ms rn on bed, no distress noted,all needs attended.
--- NOTE | 2018-09-07 19:45 | NUR ---
MS RN RECEIVE PT IN BED. A/O X 3. RESPIRATIONS EVEN AND UNLABORED, NO SOB NOTED, NO DISTRESS, SAFETY MEASURES IN PLACE. WILL CONTINUE TO MONITOR.
[2018-09-07 20:00] VITALS: BP 129/71
[2018-09-08] MEDS: VANCOMYCIN HCL 125 MG/2.5 ML ORAL.SUSP PO SCH ×3 (05:11→18:21)
--- NOTE | 2018-09-08 06:03 | NUR ---
RN CLOSING NOTE ASLEEP AND EASILY AWAKEN, RESPIRATIONS AND EVEN AND UNLABORED. AM CARE PROVIDED. NOT IN DISTRESS, NEEDS ATTENDED AND ANTICIPATED, KEPT CLEAN AND DRY AND COMFORT. REPOSITIONED EVERY 2 HOURS. GOOD SKIN CARE PROVIDED, NURSING CARE RENDERED, SAFETY MEASURES IN PLACE, BED IN LOW LOCKED POSITION, CALL LIGHT WITHIN EASY REACH. ENDORSE TO NEXT SHIFT CONTINUITY OF CARE. NO EPISODE OF DIARRHEA THROUGHOUT THE SHIFT.
--- NOTE | 2018-09-08 07:00 | NUR ---
RECEIVED PATIENT A/OX4, IN STABLE CONDITION , IV LINE FLUSHING WELL, F/C IN PLACE. WILL CONTINUE CARE.
[2018-09-08 07:02] LABS: BASOPHILS % (AUTO) 0.1 % (0.0-2.0); EOSINOPHILS % (AUTO) 0.1 % (0.0-6.0); HEMATOCRIT 27 % (33-45); LYMPHOCYTES # (AUTO) 0.3 /CMM (0.8-4.8); LYMPHOCYTES % (AUTO) 2.9 % (20.0-44.0); MEAN CORPUSCULAR HGB CONC 33 g/dl (31.0-36.0); MEAN CORPUSCULAR VOLUME 91 fL (82-100); MONOCYTES # (AUTO) 0.9 /CMM (0.1-1.30); MONOCYTES % (AUTO) 9.7 % (2.0-12.0); NEUTROPHILS # (AUTO) 7.8 /CMM (1.8-8.9); NEUTROPHILS % (AUTO) 87.2 % (43.0-81.0); PLATELET COUNT (AUTO) 471 /CMM (150-450); RED BLOOD CELL COUNT(AUTO) 2.99 MIL/uL (4.0-5.2)
[2018-09-08 07:25] LABS: ALBUMIN 1.5 g/dL (3.4-5.0); BILIRUBIN,TOTAL 0.3 mg/dL (0.2-1.0); CREATININE 0.4 mg/dL (0.6-1.3); MAGNESIUM 1.8 mg/dL (1.8-2.4); PHOSPHORUS 3.1 mg/dL (2.5-4.9); POTASSIUM 3.4 mmol/L (3.5-5.1)
[2018-09-08 08:00] VITALS: BP 126/67
[2018-09-08] MEDS: NYSTATIN MM SCH ×3 (09:00→17:00)
[2018-09-08] MEDS: LIDOCAINE MM SCH ×3 (09:00→17:00)
[2018-09-08] MEDS: PROSOURCE / PROSTAT (PYXIS) 30 ML UDC GT SCH ×3 (09:00→17:00)
[2018-09-08] MEDS: PANTOPRAZOLE 40 MG TABLET.DR PO SCH (09:10)
[2018-09-08] MEDS: ALLOPURINOL 100 MG TABLET PO SCH (09:11)
[2018-09-08] MEDS: APIXABAN 2.5 MG TABLET PO SCH ×2 (09:14→17:00)
[2018-09-08] MEDS: SUCRALFATE 1 G/10 ML UDC PO SCH ×4 (09:16→21:37)
[2018-09-08] MEDS: NYSTATIN OINT 100000 UNIT/G 15 GM TUBE TP SCH ×2 (09:24→17:09)
[2018-09-08] MEDS: THERAHONEY GEL 1.5 OZ TUBE TP SCH (09:25)
[2018-09-08] MEDS ORDERED: POTASSIUM CHLORIDE 20 MEQ TAB.PRT.SR PO SCH (11:30)
[2018-09-08 16:00] VITALS: BP 121/69
[2018-09-08] MEDS: CEFTRIAXONE 1 G in IV D5W 50 ML IV SCH (17:09)
--- NOTE | 2018-09-08 18:50 | NUR ---
PATIENT AWAKE A/OX4.RESPIRATIONS EVEN AND UNLABORED.WOUND CARE PROVIDED. NOT IN DISTRESS, NEEDS ATTENDED AND ANTICIPATED, KEPT CLEAN AND DRY AND REPOSITIONED Q2HR. SAFETY MEASURES IN PLACE, BED IN LOW LOCKED POSITION, CALL LIGHT WITHIN EASY REACH.WILL ENDORSE TO NEXT SHIFT FOR VICTORIANO. NO EPISODE OF DIARRHEA THROUGHOUT THE SHIFT, ONLY ONE SOFT STOOL.
--- NOTE | 2018-09-08 19:35 | NUR ---
RN INITIAL NOTES: RECEIVED REPORT FROM CLIFF OLMOS,. PT IN BED, AWAKE, TALKING TO FAMILY MEMBER ON THE PHONE, ON RA, RESPIRATION EVEN AND UNLABORED, DENIES ANY PAIN OR DISCOMFORT. RECEIVED WITH SIMPSON CATHETER IN PLACED DRAINING INTO YELLOW COLORED URINE. IV ACCESS PATENT AND FLUSHING WELL, ON HL. PT OFF IV ATB. SAFETY PRECAUTIONS FOR FALL INITIATED, CALL LIGHT IN REACH, WILL CONTINUE MONITORING PT.
[2018-09-08 20:00] VITALS: BP 125/71
[2018-09-09] VITALS (7 sets, daily range): BP systolic 119–146; BP diastolic 63–76
[2018-09-09] MEDS: VANCOMYCIN HCL 125 MG/2.5 ML ORAL.SUSP PO SCH ×5 (00:21→23:35)
[2018-09-09] MEDS: ACETAMINOPHEN 325 MG TABLET PO PRN ×2 (01:53→23:35)
--- NOTE | 2018-09-09 01:54 | NUR ---
PRN TYLENOL FOR HEAD ACHE AND SLEEP: PT REQUESTED FOR TYLENOL FOR HEAD ACHE AND SLEEPING. PRN TYLENOL 650 MG TAB PO ADMINISTERED AT THIS TIME
--- NOTE | 2018-09-09 06:38 | NUR ---
RN CLOSING NOTES: PT IN BED, AWAKE, DENIES ANY PAIN OR DISCOMFORT AT THIS TIME. IV ACCESS REMAINS PATENT AND FLUSHING WELL, ON HL. PT TOLERATED SOFT DIET WELL, NO EPISODE OF N/V NOTED. BLE OFFLOADED. VS REMAINS STABLE, NEEDS ATTENDED. FOR DC PLANNING TODAY, EXIT CARE COMPLETED. VS REMAINS STABLE, NEEDS ATTENDED. SAFETY PRECAUTIONS FOR FALL REMAINS ENGAGED, CALL LIGHT IN REACH, WILL ENDORSE TO DAY RN FOR CONTINUITY OF CARE.
[2018-09-09 07:09] LABS: BASOPHILS % (AUTO) 0.4 % (0.0-2.0); EOSINOPHILS % (AUTO) 0.1 % (0.0-6.0); HEMATOCRIT 24 % (33-45); HEMOGLOBIN 7.7 g/dL (11.5-14.8); LYMPHOCYTES # (AUTO) 0.3 /CMM (0.8-4.8); LYMPHOCYTES % (AUTO) 2.8 % (20.0-44.0); MEAN CORPUSCULAR HGB CONC 33 g/dl (31.0-36.0); MEAN CORPUSCULAR VOLUME 91 fL (82-100); MONOCYTES % (AUTO) 10.3 % (2.0-12.0); NEUTROPHILS # (AUTO) 8.2 /CMM (1.8-8.9); NEUTROPHILS % (AUTO) 86.4 % (43.0-81.0); PLATELET COUNT (AUTO) 451 /CMM (150-450); RED BLOOD CELL COUNT(AUTO) 2.57 MIL/uL (4.0-5.2); WHITE BLOOD COUNT (AUTO) 9.4 K/uL (4.3-11.0)
--- NOTE | 2018-09-09 07:30 | NUR ---
RN MS NOTES PT IN BED, AWAKE, ALERT AND ORIENTED, NO COMPLAINT OF PAIN OR ANY DISCOMFORT, STATED SHE FEELS BETTER AND IS EATING BETTER, F/C IN PLACE AND DRAINING WELL WITH CLEAR, YELLOW URINE, PT ANTICIPATING DISCHARGE TODAY, CALL LIGHT WITHIN REACH, NEEDS ATTENDED.
[2018-09-09] MEDS: LIDOCAINE MM SCH ×4 (08:42→17:00)
[2018-09-09] MEDS: NYSTATIN MM SCH ×4 (08:42→17:00)
[2018-09-09] MEDS: SUCRALFATE 1 G/10 ML UDC PO SCH ×4 (08:43→21:27)
[2018-09-09] MEDS: PANTOPRAZOLE 40 MG TABLET.DR PO SCH (08:43)
[2018-09-09] MEDS: ALLOPURINOL 100 MG TABLET PO SCH (08:43)
[2018-09-09] MEDS: APIXABAN 2.5 MG TABLET PO SCH ×2 (08:44→17:48)
[2018-09-09] MEDS: THERAHONEY GEL 1.5 OZ TUBE TP SCH (08:49)
[2018-09-09] MEDS: NYSTATIN OINT 100000 UNIT/G 15 GM TUBE TP SCH ×2 (08:51→17:58)
[2018-09-09] MEDS: PROSOURCE / PROSTAT (PYXIS) 30 ML UDC GT SCH ×3 (09:00→17:00)
[2018-09-09 09:13] LABS: EOSINOPHILS % (MANUAL) 1 % (0-4); LYMPHOCYTES % (MANUAL) 2 % (16-48); MONOCYTES % (MANUAL) 4 % (0-11.0); MYELOCYTES % 1 % (0-0); NEUTROPHILS % (MANUAL) 92 (42-76)
[2018-09-09 09:45] LABS: CALCIUM, SERUM 7.7 mg/dL (8.5-10.1); CREATININE 0.4 mg/dL (0.6-1.3); MAGNESIUM 1.4 mg/dL (1.8-2.4); PHOSPHORUS 2.9 mg/dL (2.5-4.9); POTASSIUM 3.1 mmol/L (3.5-5.1)
[2018-09-09] MEDS ORDERED: POTASSIUM CHLORIDE 20 MEQ TAB.PRT.SR PO ONE ×2 (11:00→11:30)
[2018-09-09] MEDS: Magnesium 1GM/D5W 100ML PREMIX 100 ML IV SCH ×4 (11:21→19:08)
--- NOTE | 2018-09-09 12:00 | NUR ---
RN MS NOTES PT IN BED, AWAKE, ALERT AND ORIENTED, NO COMPLAINT AT THIS TIME, WOUND TREATMENT AND DRESSING CHANGE DONE ORDERED, PT TOLERATED PROCEDURE WELL, SEEN BY DR. LEMON, PLAN OF CARE DISCUSSED WITH PT AND FAMILY, VERBALIZED UNDERSTANDING, MD ORDERED I UNIT PRBC TRANSFUSION, PT INFORMED, CONSENT GIVEN.
--- NOTE | 2018-09-09 15:53 | NUR ---
RN MS NOTES PT IN BED, AWAKE, ALERT AND ORIENTED, STARTED BLOOD TRANSFUSION, TOLERATING WELL, VITAL SIGNS STABLE, SEEN BY DR. SHERIFF, PLAN OF CARE DISCUSSED WITH PT, VERBALIZED UNDERSTANDING.
--- NOTE | 2018-09-09 18:11 | NUR ---
RN MS NOTES PT IN BED, AWAKE, ALERT AND ORIENTED, WATCHING TV, EATING DINNER, TOLERATING CURRENT DIET WELL, BLOOD TRANSFUSION ONGOING, NO ADVERSE REACTION NOTED, PM MEDS GIVEN ORDERED, ASSISTED IN TURNING AND REPOSITIONING, KEPT CLEAN AND DRY, ALL NEEDS ATTENDED.
[2018-09-09] MEDS: CEFTRIAXONE 1 G in IV D5W 50 ML IV SCH (18:38)
--- NOTE | 2018-09-09 19:40 | NUR ---
MS/RN OPENING NOTES PT RECEIVED AWAKE, SITTING UP IN BED. WATCHING TV. ON ROOM AIR, BREATHING EVEN AND UNLABORED. NO C/O SOB OR PAIN AT THIS TIME. IN NO ACUTE DISTRESS. IV TO RIGHT HAND PATENT AND INTACT. RCW PORTACATH IN PLACE. SIMPSON IN PLACE AND DRAINING TO GRAVITY. BED IN LOW/LOCKED POSITION WITH CALL LIGHT IN REACH. BILATERAL UPPER SIDE RAILS IN PLACE AND HOB HIGH FOWLERS. WILL CONTINUE TO MONITOR
[2018-09-10 01:56] LABS: OCCULT BLOOD STOOL POSITIVE (NEGATIVE)
[2018-09-10 06:32] LABS: BASOPHILS % (AUTO) 0.5 % (0.0-2.0); EOSINOPHILS % (AUTO) 0.2 % (0.0-6.0); HEMATOCRIT 27 % (33-45); HEMOGLOBIN 9.1 g/dL (11.5-14.8); LYMPHOCYTES # (AUTO) 0.3 /CMM (0.8-4.8); LYMPHOCYTES % (AUTO) 3.4 % (20.0-44.0); MEAN CORPUSCULAR HGB CONC 34 g/dl (31.0-36.0); MEAN CORPUSCULAR VOLUME 89 fL (82-100); MONOCYTES # (AUTO) 0.9 /CMM (0.1-1.30); MONOCYTES % (AUTO) 11.7 % (2.0-12.0); NEUTROPHILS # (AUTO) 6.5 /CMM (1.8-8.9); NEUTROPHILS % (AUTO) 84.2 % (43.0-81.0); PLATELET COUNT (AUTO) 389 /CMM (150-450); RED BLOOD CELL COUNT(AUTO) 3.01 MIL/uL (4.0-5.2); WHITE BLOOD COUNT (AUTO) 7.8 K/uL (4.3-11.0)
[2018-09-10] MEDS: SUCRALFATE 1 G/10 ML UDC PO SCH ×2 (06:41→12:13)
[2018-09-10] MEDS: VANCOMYCIN HCL 125 MG/2.5 ML ORAL.SUSP PO SCH ×2 (06:41→12:13)
[2018-09-10 06:54] LABS: CALCIUM, SERUM 7.7 mg/dL (8.5-10.1); CREATININE 0.3 mg/dL (0.6-1.3); MAGNESIUM 1.9 mg/dL (1.8-2.4); PHOSPHORUS 3.1 mg/dL (2.5-4.9); POTASSIUM 3.3 mmol/L (3.5-5.1)
--- NOTE | 2018-09-10 07:02 | NUR ---
MS/RN CLOSING NOTES PT AWAKE, SITTING UP IN BED. ON ROOM AIR, BREATHING EVEN AND UNLABORED. DENIES SOB AND PAIN AT THIS TIME. IV TO RIGHT HAND PATENT AND INTACT, SIMPSON IN PLACE AND DRAINING TO GRAVITY. WOUND CARE PROVIDED ORDERED. RCW PORTACATH. NO SIGNIFICANT CHANGES OVERNIGHT. ALL NEEDS MET. SLEPT WELL DURING SHIFT. BED REMAINS IN LOW/LOCKED POSITION WITH CALL LIGHT IN REACH AND SIDE RAILS UPX3. ISOLATION PRECAUTIONS IMPLEMENTED THROUGHOUT SHIFT. WILL ENDORSE TO DAY SHIFT RN VICTORIANO
--- NOTE | 2018-09-10 07:50 | NUR ---
RN MS NOTES PT AWAKE, SITTING IN BED, ALERT AND ORIENTED, NO COMPLAINT OF PAIN, RESPIRATIONS NORMAL, ON ROOM AIR, STATED SHE IS FEELING BETTER, F/C IN PLACE, DRAINING WELL, PLAN OF CARE DISCUSSED WITH PT, VERBALIZED UNDERSTANDING, CALL LIGHT WITHIN REACH.
[2018-09-10 08:00] VITALS: BP 128/70
[2018-09-10] MEDS: ALLOPURINOL 100 MG TABLET PO SCH (08:57)
[2018-09-10] MEDS: PANTOPRAZOLE 40 MG TABLET.DR PO SCH (08:57)
[2018-09-10] MEDS: NYSTATIN MM SCH ×2 (09:00→13:00)
[2018-09-10] MEDS: PROSOURCE / PROSTAT (PYXIS) 30 ML UDC GT SCH ×2 (09:00→13:00)
[2018-09-10] MEDS: LIDOCAINE MM SCH ×2 (09:00→13:00)
[2018-09-10] MEDS: THERAHONEY GEL 1.5 OZ TUBE TP SCH (09:04)
[2018-09-10] MEDS: NYSTATIN OINT 100000 UNIT/G 15 GM TUBE TP SCH (09:04)
[2018-09-10] MEDS ORDERED: Prosource GT (09:41)
[2018-09-10] MEDS ORDERED: NYST15OI TP (09:41)
[2018-09-10] MEDS ORDERED: VANC125C11 PO (09:41)
[2018-09-10] MEDS ORDERED: PANT40TA2 PO (09:41)
[2018-09-10] MEDS ORDERED: SUCR1ORA6 PO (09:41)
[2018-09-10] MEDS ORDERED: APIX2.5T PO (09:41)
[2018-09-10] MEDS ORDERED: POTASSIUM CHLORIDE 20 MEQ TAB.PRT.SR PO SCH (11:30)
[2018-09-10] MEDS: APIXABAN 2.5 MG TABLET PO SCH (12:12)
--- NOTE | 2018-09-10 13:50 | NUR ---
RN MS NOTES PT IN BED, AWAKE, ALERT AND ORIENTED, NO COMPLAINT OF PAIN OR ANY DISCOMFORT, RESPIRATIONS NORMAL, TOLERATING CURRENT DIET WELL, WITH BETTER APPETITE, SEEN BY DR. LEMON, DISCHARGE ORDER GIVEN, DISCHARGE AND MEDICATION INSTRUCTIONS PROVIDED TO PT, VERBALIZED UNDERSTANDING, PT REFUSED TO HAVE PHOTOS OF HER WOUND TAKEN SINCE IT WAS ALREADY DONE YESTERDAY, WOUND TREATMENTS AND DRESSING CHANGE DONE TO SACRAL WOUNDS, BELONGINGS ACCOUNTED FOR, REPORT GIVEN TO AYESHA OLMOS OF [facility], PICKED UP BY 2 AMBULANCE PERSONNEL, LEFT VIA [facility] IN STABLE CONDITION, ACCOMPANIED BY SISTER HAM.
[2018-09-22] MEDS ORDERED: AZIT250T PO (14:31)
[2018-10-01] MEDS ORDERED: DOXY100T2 PO (11:57)
[2018-10-01] MEDS ORDERED: MUPI22OI7 MC (12:00)
== END 2018-09-10 13:50 | DRG 853 ==
LOC: ER 10:09 → ICU 12:16 → MED 09-03 11:30
PROVIDERS: ADMIT Nurse Practitioner Acute Care; ATTEND Internal Medicine
PROC: 30233N1 Transfusion of Nonautologous Red Blood Cells into Peripheral Vein, Percutaneous Approach (ICD-10-PCS; 2018-08-26)
PROC: 0JB70ZZ Excision of Back Subcutaneous Tissue and Fascia, Open Approach (ICD-10-PCS; principal; 2018-08-28)
DX: A41.9 Sepsis, unspecified organism (principal); J15.9 Unspecified bacterial pneumonia; D61.810 Antineoplastic chemotherapy induced pancytopenia; L89.153 Pressure ulcer of sacral region, stage 3; E43 Unspecified severe protein-calorie malnutrition; G92 Toxic encephalopathy; R65.21 Severe sepsis with septic shock; I50.32 Chronic diastolic (congestive) heart failure; A04.72 Enterocolitis due to Clostridium difficile, not specified as recurrent; D68.9 Coagulation defect, unspecified; K50.90 Crohn's disease, unspecified, without complications; E87.1 Hypo-osmolality and hyponatremia; C83.30 Diffuse large B-cell lymphoma, unspecified site; J90 Pleural effusion, not elsewhere classified; T45.1X5A Adverse effect of antineoplastic and immunosuppressive drugs, initial encounter; B96.1 Klebsiella pneumoniae [K. pneumoniae] as the cause of diseases classified elsewhere; R62.7 Adult failure to thrive; Z98.890 Other specified postprocedural states; Z88.8 Allergy status to other drugs, medicaments and biological substances; Z79.899 Other long term (current) drug therapy; D72.821 Monocytosis (symptomatic); E16.2 Hypoglycemia, unspecified; E83.42 Hypomagnesemia; E86.0 Dehydration; E83.51 Hypocalcemia; E87.6 Hypokalemia; L89.150 Pressure ulcer of sacral region, unstageable; L30.4 Erythema intertrigo; K12.30 Oral mucositis (ulcerative), unspecified; D50.9 Iron deficiency anemia, unspecified; E83.39 Other disorders of phosphorus metabolism; T45.8X5A Adverse effect of other primarily systemic and hematological agents, initial encounter; Y92.129 Unspecified place in nursing home as the place of occurrence of the external cause; D64.81 Anemia due to antineoplastic chemotherapy
CPT/HCPCS: 36415; 70450-TC; 71045-TC; 80048-TC; 80053-TC; 80061-TC; 80076-TC; 80202-TC; 81000-TC; 82140-TC; 82272-TC; 82436-TC; 82533; 82728-TC; 82962-TC; 83540-TC; 83605-TC; 83615-TC; 83735-TC; 83935-TC; 84100-TC; 84132-TC; 84133-TC; 84300-TC; 84443-TC; 84484-TC; 84550-TC; 85025-TC; 85045-TC; 85385-TC; 85396; 85610-TC; 85730-TC; 86850-TC; 86921-TC; 87040-TC; 87081-TC; 87086-TC; 87186-TC; 92526; 92611-TC; 93307-TC; A4216; A6253; A6402; A6403; C9113; G0378; J0692; J0696; J1442; J1447; J1650; J1720; J2248; J2270; J2405; J3370; J3430; J3475; J3480; J3490; J7030; J7042; J7050; J7060; P9016-BL

== ENCOUNTER 2018-09-19 09:31 | Inpatient (IN) | payer MEDICARE, BC ==
[~2018-09-19] VITALS: Ht 167.6 cm; Wt 46.7 kg
[~2018-09-19 09:31] MED LIST changes: +ACET-868 PO; -ACET325T53 PO; +ACID1TAB12 PO; +ALLO300T2 PO; -AMOX-427 PO; +APIX2.5T PO; +ASCO500T9 PO; +DIPH1TAB PO; -FERR-56 PO; +HYDR-4384 PO; +LOPE2CAP40 PO; -MAG30ORA PO; -MAGN400O6 PO; +MULT-447 PO; +NYST15CR TP; +NYST15OI TP; +PANT40TA2 PO; +Prosource GT; +SUCR1ORA6 PO; +VANC125C11 PO; +ZINC220C8 PO
[2018-09-19] MEDS ORDERED: POTASSIUM CHLORIDE 20 MEQ TAB.PRT.SR PO ONE (10:00)
--- NOTE | 2018-09-19 10:00 | NUR ---
SENT BY DR. SHERIFF (ONCOLOGIST) DUE TO ABNORMAL LAB K+ 2.6 HAD DIARRHEA x5 YESTERDAY. PT AAOX4, VSS. DENIES CP, SOB, DIZZINESS,N/V @ THIS TIME. PLACED ON BED AND BREAKFAST INNKEEPER. PT SEEN & EVAL'D BY DR. GOMEZ. WILL CONT TO MONITOR.
[2018-09-19 10:07] LABS: BASOPHILS # (AUTO) 0.1 /CMM (0.0-0.2); BASOPHILS % (AUTO) 2.4 % (0.0-2.0); EOSINOPHILS % (AUTO) 0.9 % (0.0-6.0); HEMATOCRIT 30 % (33-45); HEMOGLOBIN 9.9 g/dL (11.5-14.8); LYMPHOCYTES # (AUTO) 0.2 /CMM (0.8-4.8); LYMPHOCYTES % (AUTO) 4.1 % (20.0-44.0); MEAN CORPUSCULAR HGB CONC 33 g/dl (31.0-36.0); MEAN CORPUSCULAR VOLUME 91 fL (82-100); MONOCYTES # (AUTO) 0.3 /CMM (0.1-1.30); MONOCYTES % (AUTO) 4.8 % (2.0-12.0); NEUTROPHILS # (AUTO) 5.3 /CMM (1.8-8.9); NEUTROPHILS % (AUTO) 87.8 % (43.0-81.0); PLATELET COUNT (AUTO) 253 /CMM (150-450); RED BLOOD CELL COUNT(AUTO) 3.32 MIL/uL (4.0-5.2)
[2018-09-19 10:18] LABS: CALCIUM, SERUM 7.9 mg/dL (8.5-10.1); CREATININE 0.3 mg/dL (0.6-1.3)
--- NOTE | 2018-09-19 10:18 | NUR ---
IV ACCESS STARTED ON R AC 20G.
[2018-09-19 10:19] LABS: POTASSIUM 2.6 mmol/L (3.5-5.1)
[2018-09-19] MEDS ORDERED: POTASSIUM CL. PREMIX PERIPHER. 150 ML ONE (10:21)
[2018-09-19] MEDS ORDERED: Magnesium 1GM/D5W 100ML PREMIX 200 ML IV ONE (10:23)
[2018-09-19] MEDS ORDERED: Magnesium 1 GM/2 ML VIAL IV ONE (10:30)
[2018-09-19] MEDS: POTASSIUM CL. PREMIX PERIPHER. 50 ML IV SCH ×4 (10:40→16:44)
--- NOTE | 2018-09-19 10:55 | NUR ---
CALLED FOR TELE BED.
--- NOTE | 2018-09-19 11:00 | NUR ---
CALLED [facility]. ITS [facility].
--- NOTE | 2018-09-19 11:07 | NUR ---
IV ACCESS STARTED ON L WRIST 22G
[2018-09-19] MEDS ORDERED: POTASSIUM CL. PREMIX PERIPHER. 50 ML ONE (11:39)
[2018-09-19] MEDS ORDERED: LORA0.5T PO (11:49)
[2018-09-19 12:00] VITALS: BP 115/60
[2018-09-19] MEDS ORDERED: PROT946L PO (12:07)
[2018-09-19] MEDS ORDERED: IPRA3AMP23 IH (12:07)
[2018-09-19] MEDS ORDERED: FURO20TA4 PO (12:07)
[2018-09-19] MEDS ORDERED: POTA10CA43 PO (12:07)
[2018-09-19] MEDS ORDERED: HYDR-4384 PO (12:07)
--- NOTE | 2018-09-19 12:20 | NUR ---
ADMISSION NOTE PT WAS BROUGHT UP AT THIS TIME FROM THE ER VIA GURNEY. A/O X4, BREATHING EVEN AND UNLABORED ON 2L VIA NC, NOTED TO HAVE A COUGH WITH SOME SECRETIONS, NO CURRENT COMPLAINTS OF PAIN OR DISTRESS NOTED, IV PATENT AND INTACT, SAFETY PRECAUTIONS IN PLACE, CALL LIGHT WITHIN REACH, WILL MONITOR ACCORDINGLY.
[2018-09-19] MEDS ORDERED: Z GUARD REMEDY 2 OZ OINT TP PRN (12:30)
[2018-09-19] MEDS ORDERED: MAGNESIUM HYDROXIDE 30 ML UDC PO PRN (12:30)
[2018-09-19] MEDS ORDERED: HYDROCODONE/APAP 5/325MG 1 EACH TABLET PO PRN (12:30)
[2018-09-19] MEDS ORDERED: ONDANSETRON HCL/PF 4 MG/2 ML VIAL IVP PRN (12:30)
[2018-09-19] MEDS ORDERED: MAG HYDROX/AL HYDROX/SIMETH 30 ML UDC PO PRN (12:30)
[2018-09-19] MEDS ORDERED: ACETAMINOPHEN 325 MG TABLET PO PRN (12:30)
--- NOTE | 2018-09-19 13:42 | NUR ---
RN NOTE PT WAS NOTED TO HAVE MULTIPLE SACRAL WOUNDS AND PERINEAL REDNESS, PT REFUSED DRESSING TO PLACE STATING SHE DID NOT WANT TO TURN AND BE ON THE DRESSING, EDUCATION WAS PROVIDED BUT PT STILL REFUSED. WOUND CARE CONSULT REQUESTED. WILL MONITOR ACCORDINGLY.
[2018-09-19 16:00] VITALS: BP 120/59
[2018-09-19] MEDS ORDERED: LOPERAMIDE HCL (2 MG CAP) 2 MG CAPSULE PO PRN (16:00)
[2018-09-19] MEDS: PROSOURCE / PROSTAT (PYXIS) 30 ML UDC PO SCH (16:45)
[2018-09-19] MEDS: Potassium Chloride 20 MEQ in IV D5/0.45 NACL 1,000 ML IV PRN (16:45)
[2018-09-19] MEDS: SUCRALFATE 1 G/10 ML UDC PO SCH ×2 (16:45→21:24)
[2018-09-19] MEDS: VANCOMYCIN HCL 125 MG/2.5 ML ORAL.SUSP PO SCH ×2 (16:45→20:40)
[2018-09-19] MEDS: Magnesium 1GM/D5W 100ML PREMIX 100 ML IV SCH ×2 (17:05→18:02)
[2018-09-19] MEDS: POTASSIUM CHLORIDE 20 MEQ TAB.PRT.SR PO SCH ×3 (17:05→20:54)
[2018-09-19] MEDS: APIXABAN 2.5 MG TABLET PO SCH (17:33)
--- NOTE | 2018-09-19 18:23 | NUR ---
RN NOTE PT WAS NOTED TO BE INCONTINENT OF URINE AND BOWEL, WAS CHANGED BY SACHA CHAVEZ. PT REFUSED WOUND DRESSING AND CARE STATING SHE DID NOT WANT IT BECAUSE IT WOULD HURT HER. PT ASLO REFUSED TO EAT DINNER. WILL MONITOR ACCORDINGLY.
--- NOTE | 2018-09-19 18:30 | NUR ---
RN CLOSING NOTE PT IN BED IN LOWEST AND LOCKED POSITION WITH SIDE RAILS UP X2, A/O X4 BREATHING EVEN AND UNLABORED ON 2L VIA NC, NO CURRENT COMPLAINTS OF ANY DISTRESS OR PAIN, PT REFUSED DRESSING FOR SACRAL AND PERINEAL WOUNDS, IV SITES ARE PATENT AND INTACT WITH IVF RUNNING, ALL NEEDS ATTENDED TO, SAFETY PRECAUTIONS IN PLACE, CALL LIGHT WITHIN REACH, WILL ENDORSE TO ONCOMING FOOT ROENTGENOLOGIST RN FOR VICTORIANO.
--- NOTE | 2018-09-19 19:20 | NUR ---
INVESTIGATIVE REPORTER OPENING NOTES Received patient intermittently asleep on bed on Correa's position with O2 inhalation @ 2LPM as ordered, saturating well, no SOB/respiratory distress noted. On tele with SR noted. With patent peripheral IV line infusing well with K 20mEq + D5 1/2 NS @ 75ml/hr as ordered. Patient claimed still having diarrhea, no discomfort noted at this time. Will continue to monitor accordingly.
--- NOTE | 2018-09-19 19:30 | NUR ---
SUBSTANCE ADDICTION COORDINATOR NOTES [facility] does not show K dur, checked the cassette, no K Dur available. Called up Pharmacy, per pharmacy, [facility] might not showing it as it the meds maybe time sensitive, and per pharmacy K Dur will be delivered in the cassette. Awaiting for the Pharmacy delivery at this time.
--- NOTE | 2018-09-19 20:55 | NUR ---
CRYSTAL REPORT DEVELOPER NOTES Received K Dur via Pharmacy delivery. Administered as ordered.
[2018-09-20] VITALS: BP 115/58
--- NOTE | 2018-09-20 00:59 | NUR ---
EMT/PARAMEDIC NOTES Patient noted with coughing, with prominent crackles noted. Repositioned patient to high Correa's position, secured O2 via nasal cannula. O2 sat 97%. Patient complained of SOB, unable to expectorate secretions. Paged test preparation tutor MD Dr. Jeffrey with order noted and carried out. Medication verified by pharmacy, RT notified to administer breathing breathing. Patient remained saturating well, breathing evenly, RR 20. Will continue to monitor accordingly.
[2018-09-20] MEDS: ALBUTEROL FS 2.5 MG/3 ML VIAL.NEB NEB PRN ×3 (01:04→17:31)
[2018-09-20 04:00] VITALS: BP 124/73
--- NOTE | 2018-09-20 06:30 | NUR ---
WOOD BORING MACHINE OPERATOR CLOSING NOTES Patient on bed in high Correa's position, still with occasional productive cough noted, unable to expectorate well. On tele monitor with Sinus rhythm/sinus tach noted. On breathing treatment with RT as ordered. All nursing needs attended. All due meds given as ordered. Patient refused wound treatment due to anticipated pain. Kept on bed clean, dry and comfortable. Kept bed low and locked, side rails up with call light within easy reach. Endorsed to the next shift.
[2018-09-20] MEDS: Potassium Chloride 20 MEQ in IV D5/0.45 NACL 1,000 ML IV PRN (06:40)
[2018-09-20 07:27] LABS: BASOPHILS % (AUTO) 0.4 % (0.0-2.0); EOSINOPHILS % (AUTO) 0.6 % (0.0-6.0); HEMATOCRIT 28 % (33-45); HEMOGLOBIN 9.3 g/dL (11.5-14.8); LYMPHOCYTES # (AUTO) 0.3 /CMM (0.8-4.8); LYMPHOCYTES % (AUTO) 5.5 % (20.0-44.0); MEAN CORPUSCULAR HGB CONC 34 g/dl (31.0-36.0); MEAN CORPUSCULAR VOLUME 89 fL (82-100); MONOCYTES # (AUTO) 0.5 /CMM (0.1-1.30); MONOCYTES % (AUTO) 8.9 % (2.0-12.0); NEUTROPHILS # (AUTO) 4.5 /CMM (1.8-8.9); NEUTROPHILS % (AUTO) 84.6 % (43.0-81.0); PLATELET COUNT (AUTO) 256 /CMM (150-450); WHITE BLOOD COUNT (AUTO) 5.3 K/uL (4.3-11.0)
[2018-09-20 07:47] LABS: ALBUMIN 1.7 g/dL (3.4-5.0); CALCIUM, SERUM 7.5 mg/dL (8.5-10.1); CREATININE 0.3 mg/dL (0.6-1.3); MAGNESIUM 1.7 mg/dL (1.8-2.4); PHOSPHORUS 1.9 mg/dL (2.5-4.9); POTASSIUM 3.7 mmol/L (3.5-5.1)
[2018-09-20 08:00] VITALS: BP 110/66
[2018-09-20] MEDS: SUCRALFATE 1 G/10 ML UDC PO SCH ×4 (08:40→21:06)
[2018-09-20] MEDS: VANCOMYCIN HCL 125 MG/2.5 ML ORAL.SUSP PO SCH ×4 (08:40→21:03)
[2018-09-20] MEDS: ALLOPURINOL 100 MG TABLET PO SCH (08:41)
[2018-09-20] MEDS: PANTOPRAZOLE 40 MG TABLET.DR PO SCH (08:41)
[2018-09-20] MEDS: ACIDOPHILUS/BULGARICUS 1 EACH TAB.CHEW PO SCH (08:41)
[2018-09-20] MEDS: PROSOURCE / PROSTAT (PYXIS) 30 ML UDC PO SCH ×4 (08:41→16:44)
[2018-09-20] MEDS: APIXABAN 2.5 MG TABLET PO SCH ×2 (08:42→16:54)
[2018-09-20] MEDS: ZINC SULFATE 220 MG CAPSULE PO SCH ×2 (08:42→09:00)
[2018-09-20] MEDS: ASCORBIC ACID 500 MG TABLET PO SCH ×2 (08:42→09:00)
[2018-09-20] MEDS: Magnesium 1GM/D5W 100ML PREMIX 100 ML IV SCH ×2 (09:56→12:14)
[2018-09-20] MEDS: ALBUTEROL FS 2.5 MG/3 ML VIAL.NEB NEB SCH ×2 (12:43→19:52)
[2018-09-20] MEDS: NYSTATIN/TRIAMCIN CREAM 15 GM TUBE TP SCH (15:01)
[2018-09-20 16:00] VITALS: BP 110/64
[2018-09-20] MEDS ORDERED: NEUTRA PHOS 1 POWD.PACKET PO SCH (17:00)
[2018-09-20] MEDS ORDERED: AZITHROMYCIN 250 MG TABLET PO ONE (19:30)
[2018-09-20] MEDS ORDERED: GUAIFENESIN/D-METHORPHAN HB 5 ML UDC PO PRN (19:30)
--- NOTE | 2018-09-20 19:49 | NUR ---
RECEIVED PATIENT AWAKE IN BED. PATIENT IS A/O X4. PATIENT DENIES PAIN AT THIS TIME. PATIENT SHOWS NO SIGNS OF RESPIRATORY DISTRESS AT THIS TIME. PATIENT DENIES SHORTNESS OF BREATH AT THIS TIME. SAFETY PRECAUTIONS IMPLEMENTED. CALL LIGHT WITHIN REACH.
[2018-09-20 20:00] VITALS: BP 104/60
--- NOTE | 2018-09-20 20:30 | NUR ---
MS RN NOTES PATIENT REFUSING KCI BED. EXPLAINED TO PT IMPORTANCE, RISKS AND BENEFITS OF KCI BED BUT PT STILL REFUSED. WILL CONTINUE TO MONITOR.
[2018-09-20] MEDS: ZOLPIDEM TARTRATE 5 MG TABLET PO PRN (21:05)
[2018-09-21] MEDS: ALBUTEROL FS 2.5 MG/3 ML VIAL.NEB NEB SCH ×4 (01:54→19:03)
[2018-09-21] MEDS: NYSTATIN/TRIAMCIN CREAM 15 GM TUBE TP SCH ×3 (02:34→23:17)
[2018-09-21] MEDS: Potassium Chloride 20 MEQ in IV D5/0.45 NACL 1,000 ML IV PRN (05:14)
--- NOTE | 2018-09-21 06:36 | NUR ---
RN CLOSING NOTES PATIENT IS AWAKE IN BED. PATIENT IS ON 2L VIA NASAL CANNULA. NO SIGNS OF RESPIRATORY DISTRESS. NO SIGNS OF SHORTNESS OF BREATH. NO SIGNS OF PAIN. IV SITES ARE PATENT AND RUNNING. ALL NEEDS ATTENDED TO. SAFETY PRECAUTIONS IMPLEMENTED. CALL LIGHT WITHIN REACH. WILL ENDORSE TO ONCOMING AM RN.
[2018-09-21 06:43] LABS: BASOPHILS % (AUTO) 0.3 % (0.0-2.0); EOSINOPHILS % (AUTO) 0.7 % (0.0-6.0); HEMATOCRIT 31 % (33-45); HEMOGLOBIN 10.3 g/dL (11.5-14.8); LYMPHOCYTES # (AUTO) 0.3 /CMM (0.8-4.8); LYMPHOCYTES % (AUTO) 6.3 % (20.0-44.0); MEAN CORPUSCULAR HGB CONC 33 g/dl (31.0-36.0); MEAN CORPUSCULAR VOLUME 90 fL (82-100); MONOCYTES # (AUTO) 0.5 /CMM (0.1-1.30); NEUTROPHILS # (AUTO) 4.6 /CMM (1.8-8.9); NEUTROPHILS % (AUTO) 83.7 % (43.0-81.0); PLATELET COUNT (AUTO) 346 /CMM (150-450); RED BLOOD CELL COUNT(AUTO) 3.47 MIL/uL (4.0-5.2); WHITE BLOOD COUNT (AUTO) 5.5 K/uL (4.3-11.0)
[2018-09-21 06:51] LABS: CALCIUM, SERUM 7.8 mg/dL (8.5-10.1); CREATININE 0.3 mg/dL (0.6-1.3); MAGNESIUM 1.7 mg/dL (1.8-2.4); PHOSPHORUS 2.3 mg/dL (2.5-4.9); POTASSIUM 3.5 mmol/L (3.5-5.1)
[2018-09-21 07:28] LABS: THYROID STIMULATING HORMONE 1.169 uIU/mL (0.358-3.74)
[2018-09-21 08:00] VITALS: BP 110/64
--- NOTE | 2018-09-21 08:27 | NUR ---
WOUND CARE CONSULT WOUND CARE RECEIVED CONSULT FOR MULTIPLE SACRAL WOUNDS, PERINEAL REDNESS. WOUND CARE WILL DEFER CONSULT AND TREATMENT PLANS TO PLASTIC SURGICAL TEAM WHO ARE CURRENTLY FOLLOWING THIS PATIENT. PATIENT WITH DUANE AT 12, ALL PRESSURE ULCER PREVENTION MEASURES ARE NOTED TO BE IN PLACE. WILL SEE PRN.
[2018-09-21] MEDS: NEUTRA PHOS 1 POWD.PACKET PO SCH ×3 (08:30→15:28)
[2018-09-21] MEDS: ACIDOPHILUS/BULGARICUS 1 EACH TAB.CHEW PO SCH (08:43)
[2018-09-21] MEDS: Magnesium 1GM/D5W 100ML PREMIX 100 ML IV SCH ×2 (08:43→09:04)
[2018-09-21] MEDS: ALLOPURINOL 100 MG TABLET PO SCH (08:43)
[2018-09-21] MEDS: SUCRALFATE 1 G/10 ML UDC PO SCH ×4 (08:44→21:22)
[2018-09-21] MEDS: POTASSIUM CHLORIDE 20 MEQ TAB.PRT.SR PO SCH ×3 (08:44→12:02)
[2018-09-21] MEDS: PANTOPRAZOLE 40 MG TABLET.DR PO SCH (08:45)
[2018-09-21] MEDS: VANCOMYCIN HCL 125 MG/2.5 ML ORAL.SUSP PO SCH ×4 (08:45→21:22)
[2018-09-21] MEDS: APIXABAN 2.5 MG TABLET PO SCH ×2 (08:59→16:43)
[2018-09-21] MEDS: ASCORBIC ACID 500 MG TABLET PO SCH (09:00)
[2018-09-21] MEDS: ZINC SULFATE 220 MG CAPSULE PO SCH (09:00)
[2018-09-21] MEDS: PROSOURCE / PROSTAT (PYXIS) 30 ML UDC PO SCH ×3 (09:00→16:49)
[2018-09-21] MEDS: SILVER SULFADIAZINE CREAM 25 GM TUBE TP SCH (10:17)
--- NOTE | 2018-09-21 10:30 | NUR ---
kci bed discussed with patient about and informed patient that kci bed or air mattress was indicated/ordered because of gail sacral wounds. patient refusing placeemnt on the bed. states, " I don't want to change beds. that bed makes me all sweaty, id like to just keep this bed."
--- NOTE | 2018-09-21 11:00 | NUR ---
DRESSING CHANGED PATIENT HAD LARGE BM DIARRHEA. BED AND BRIEF CHANGED. PATIENT ALLOWED ME TO CHANGE THE DRESSING TO HER SACRAL AREA PER DOCTORS ORDERS ON CONDITION I USE. PAPER TAPE SPARINGLY. DRESSING CHANGE PERFORMED ALONG WITH CREAM APPLICATION PER ORDERS..
--- NOTE | 2018-09-21 12:29 | NUR ---
RN OPENING NOTE BEDSIDE REPORT RECIEVED FROM HILARIA OLMOS. PATIENT SEEN RESTING IN BED ALERT AND ORIENTED. SR X3 BED DOWN AND LOCKED. CALL LIGHT IN REACH ON 2 LNC. ENCOURAGED TO CALL FOR ASSIST IF NEEDED. Addendum: 09/21/18 at 1233 by LIANG ROBERTSON RN PERFORMED AT 76
[2018-09-21] MEDS: BUDESONIDE RESPULE INH 0.25 MG/2 ML AMPUL.NEB NEB SCH ×2 (14:00→19:03)
[2018-09-21] MEDS: methylPREDNISolone SOD SUCC 125 MG/2ML VIAL IV SCH ×2 (15:27→21:21)
[2018-09-21 16:00] VITALS: BP 108/56
--- NOTE | 2018-09-21 19:05 | NUR ---
Report given to Ibrahima OLMOS. patient seen in bed with eyes closed in no apparent distress. bed down and locked. sr x2 call light within reach at the bedside.
[2018-09-21] MEDS ORDERED: AZITHROMYCIN 250 MG TABLET PO SCH (19:30)
--- NOTE | 2018-09-21 19:50 | NUR ---
RN OPENING NOTES RECEIVED PATIENT AWAKE IN BED. PATIENT IS A/O X4. NO ACUTE DISTRESS. DENIES PAIN AT THIS TIME. IV SITE PATENT AND INTACT. SAFETY PRECAUTIONS IMPLEMENTED. CALL LIGHT WITHIN REACH. WILL CONTINUE TO MONITOR PATIENT THROUGHOUT THE SHIFT.
--- NOTE | 2018-09-21 19:55 | NUR ---
RN NOTES PATIENT REFUSING LOW AIR LOSS BED. EXPLAINED TO PT IMPORTANCE, RISKS AND BENEFITS OF LOW AIR LOSS BED BUT PATIENT STILL REFUSED. WILL CONTINUE TO MONITOR.
[2018-09-21 20:00] VITALS: BP 117/67
[2018-09-21] MEDS: ZOLPIDEM TARTRATE 5 MG TABLET PO PRN (21:36)
[2018-09-21 22:02] VITALS: BP 117/67
[2018-09-22] MEDS: ALBUTEROL FS 2.5 MG/3 ML VIAL.NEB NEB SCH ×3 (01:10→13:54)
--- NOTE | 2018-09-22 06:34 | NUR ---
RN CLOSING NOTES PATIENT IS AWAKE IN BED. NO SIGNS OF ACUTE DISTRESS. DENIES PAIN AT THIS TIME. SAFETY PRECAUTIONS IMPLEMENTED. CALL LIGHT WITHIN REACH. WILL ENDORSE TO ONCOMING AM RN.
[2018-09-22 06:45] LABS: BASOPHILS % (AUTO) 0.1 % (0.0-2.0); HEMATOCRIT 28 % (33-45); HEMOGLOBIN 9.3 g/dL (11.5-14.8); LYMPHOCYTES # (AUTO) 0.3 /CMM (0.8-4.8); LYMPHOCYTES % (AUTO) 5.6 % (20.0-44.0); MEAN CORPUSCULAR HGB CONC 34 g/dl (31.0-36.0); MEAN CORPUSCULAR VOLUME 89 fL (82-100); MONOCYTES # (AUTO) 0.2 /CMM (0.1-1.30); MONOCYTES % (AUTO) 4.8 % (2.0-12.0); NEUTROPHILS # (AUTO) 4.6 /CMM (1.8-8.9); NEUTROPHILS % (AUTO) 89.5 % (43.0-81.0); PLATELET COUNT (AUTO) 350 /CMM (150-450); RED BLOOD CELL COUNT(AUTO) 3.12 MIL/uL (4.0-5.2); WHITE BLOOD COUNT (AUTO) 5.1 K/uL (4.3-11.0)
[2018-09-22 06:46] LABS: ALBUMIN 1.9 g/dL (3.4-5.0); BILIRUBIN,TOTAL 0.3 mg/dL (0.2-1.0); CALCIUM, SERUM 8.3 mg/dL (8.5-10.1); CREATININE 0.3 mg/dL (0.6-1.3); MAGNESIUM 1.7 mg/dL (1.8-2.4); PHOSPHORUS 3.3 mg/dL (2.5-4.9); POTASSIUM 4.1 mmol/L (3.5-5.1); TOTAL PROTEIN, SERUM 4.3 g/dL (6.4-8.2)
--- NOTE | 2018-09-22 07:30 | NUR ---
PATIENT IS AWAKE IN BED. NO SIGNS OF ACUTE DISTRESS. DENIES PAIN AT THIS TIME. SAFETY PRECAUTIONS IMPLEMENTED. CALL LIGHT WITHIN REACH.CAREGIVER AT BEDSIDE. WILL CONTINUE TO MONITOR
[2018-09-22 08:00] VITALS: BP 126/68
[2018-09-22] MEDS: PANTOPRAZOLE 40 MG TABLET.DR PO SCH (08:19)
[2018-09-22] MEDS: ALLOPURINOL 100 MG TABLET PO SCH (08:20)
[2018-09-22] MEDS: ACIDOPHILUS/BULGARICUS 1 EACH TAB.CHEW PO SCH (08:20)
[2018-09-22] MEDS: SUCRALFATE 1 G/10 ML UDC PO SCH ×3 (08:22→16:46)
[2018-09-22] MEDS: methylPREDNISolone SOD SUCC 125 MG/2ML VIAL IV SCH ×2 (08:23→16:46)
[2018-09-22] MEDS: PROSOURCE / PROSTAT (PYXIS) 30 ML UDC PO SCH ×3 (08:24→16:46)
[2018-09-22] MEDS: VANCOMYCIN HCL 125 MG/2.5 ML ORAL.SUSP PO SCH ×3 (08:33→16:46)
[2018-09-22] MEDS: ASCORBIC ACID 500 MG TABLET PO SCH (08:43)
[2018-09-22] MEDS: APIXABAN 2.5 MG TABLET PO SCH ×2 (08:44→16:47)
[2018-09-22] MEDS: SILVER SULFADIAZINE CREAM 25 GM TUBE TP SCH (08:44)
[2018-09-22] MEDS: ZINC SULFATE 220 MG CAPSULE PO SCH (08:44)
[2018-09-22] MEDS: BUDESONIDE RESPULE INH 0.25 MG/2 ML AMPUL.NEB NEB SCH (09:35)
[2018-09-22] MEDS: Magnesium 1GM/D5W 100ML PREMIX 100 ML IV SCH ×2 (09:43→10:57)
[2018-09-22] MEDS ORDERED: Magnesium 1GM/D5W 100ML PREMIX 100 ML IV SCH (11:00)
[2018-09-22 11:49] VITALS: BP 126/68
[2018-09-22] MEDS: NYSTATIN/TRIAMCIN CREAM 15 GM TUBE TP SCH (12:46)
[2018-09-22] MEDS ORDERED: AZIT250T PO (14:31)
[2018-09-22] MEDS ORDERED: MONTELUKAST SODIUM (10MG) 10 MG TABLET PO SCH ×2 (14:53→15:00)
[2018-09-22] MEDS ORDERED: FLUTICASONE PROPIONATE 16 GM BOTTLE NS SCH (15:00)
[2018-09-22 16:00] VITALS: BP 115/64
--- NOTE | 2018-09-22 16:40 | NUR ---
report given to Abdon cohen [facility]
--- NOTE | 2018-09-22 18:49 | NUR ---
patient cleared for d/c to [facility] by MD. Patient awake alert and oriented x4, no s/s distress noted, no complains of pain, no SOB. Patient on 2l O2 via NC saturating 98%. VS are stable and within normal level. D/c instructions and education provided to patient: patient verbalized understanding. Pt will f/u with PCP dr. Nair outpatient. New prescription provided to patient. Patient has wound on sacral aria , pictures are taken and placed in the chart. IV asses removed , no bleeding noted. Id wrist band removed. All d/c papers signed including valuable form (all belongings and wheelchair with the patient ). patient picked up by ambulance, transported to car via gurney.
[2018-10-01] MEDS ORDERED: DOXY100T2 PO (11:57)
[2018-10-01] MEDS ORDERED: MUPI22OI7 MC (12:00)
== END 2018-09-22 18:30 | DRG 640 ==
LOC: ER 09:31 → TELE 11:24 → MED 09-20 10:16
PROVIDERS: ADMIT Hospitalist; ATTEND Hospitalist
DX: E87.6 Hypokalemia (principal); E43 Unspecified severe protein-calorie malnutrition; K50.90 Crohn's disease, unspecified, without complications; Z68.1 Body mass index [BMI] 19.9 or less, adult; C83.30 Diffuse large B-cell lymphoma, unspecified site; E83.42 Hypomagnesemia; J20.9 Acute bronchitis, unspecified; D50.9 Iron deficiency anemia, unspecified; J32.9 Chronic sinusitis, unspecified; E83.39 Other disorders of phosphorus metabolism; D64.81 Anemia due to antineoplastic chemotherapy; T45.1X5A Adverse effect of antineoplastic and immunosuppressive drugs, initial encounter; Y92.009 Unspecified place in unspecified non-institutional (private) residence as the place of occurrence of the external cause; E88.09 Other disorders of plasma-protein metabolism, not elsewhere classified; L30.4 Erythema intertrigo; L98.8 Other specified disorders of the skin and subcutaneous tissue; I50.9 Heart failure, unspecified; Z79.899 Other long term (current) drug therapy
CPT/HCPCS: 36415; 70220-TC; 71045-TC; 80048-TC; 80053-TC; 80061-TC; 82040-TC; 82728-TC; 83540-TC; 83735-TC; 84100-TC; 84443-TC; 85025-TC; 87081-TC; 94762-TC; 94799-TC; A6253; A6402; G0378; J2930; J3475; J3480; J3490; J7060

== ENCOUNTER 2018-09-28 22:50 | Inpatient (IN) | payer MEDICARE, BC ==
[~2018-09-28] VITALS: Ht 167.6 cm; Wt 44.5 kg
[~2018-09-28 22:50] MED LIST changes: +AZIT250T PO; +FURO20TA4 PO; -HYDR-4384 PO; +IPRA3AMP23 IH; -NYST15CR TP; +POTA10CA43 PO; +PROT946L PO; -Prosource GT; -VANC125C11 PO
--- NOTE | 2018-09-28 23:06 | NUR ---
PT RUTHIE FROM [facility], SENT BY PMD FOR ABNORMAL LAB. WBC 64, K 3. -FEVER,-SOB,-CHEST PAIN,-HEADACHE,-DIZZINESS. PT AOX4. NAD NOTED. RESP EVEN AND UNLABORED. PT ON MONITOR IN BED 1. WILL CONTINUE TO MONITOR.
--- NOTE | 2018-09-28 23:27 | NUR ---
BLOOD DRAWN AND GIVEN TO LAB
[2018-09-28 23:33] LABS: BASOPHILS # (AUTO) 0.1 /CMM (0.0-0.2); LYMPHOCYTES # (AUTO) 0.2 /CMM (0.8-4.8); RED BLOOD CELL COUNT(AUTO) 3.17 MIL/uL (4.0-5.2)
[2018-09-28 23:35] LABS: BASOPHILS % (AUTO) 0.1 % (0.0-2.0); HEMATOCRIT 29 % (33-45); LYMPHOCYTES % (AUTO) 0.3 % (20.0-44.0); MEAN CORPUSCULAR HGB CONC 32 g/dl (31.0-36.0); MEAN CORPUSCULAR VOLUME 90 fL (82-100); MONOCYTES # (AUTO) 0.7 /CMM (0.1-1.30); MONOCYTES % (AUTO) 0.9 % (2.0-12.0); NEUTROPHILS # (AUTO) 75.6 /CMM (1.8-8.9); NEUTROPHILS % (AUTO) 98.7 % (43.0-81.0); PLATELET COUNT (AUTO) 284 /CMM (150-450)
[2018-09-28 23:42] LABS: CALCIUM, SERUM 8.4 mg/dL (8.5-10.1); CREATININE 0.5 mg/dL (0.6-1.3); POTASSIUM 3.4 mmol/L (3.5-5.1); WHITE BLOOD COUNT (AUTO) 76.7 K/uL (4.3-11.0)
--- NOTE | 2018-09-29 00:09 | NUR ---
URINE COLLECTED AND SENT TO LAB
--- NOTE | 2018-09-29 00:20 | NUR ---
RADIOLOGY AT BEDSIDE FOR XRAY
[2018-09-29 00:24] LABS: APPEARANCE,URINE Slightly Cloudy (CLEAR); BILIRUBIN,URINE Negative (NEGATIVE); BLOOD, URINE Trace-lysed Ery/uL (NEGATIVE); COLOR,URINE Yellow (YELLOW); KETONES,URINE Negative (NEGATIVE); LEUKOCYTE ESTERASE ,URINE Small (NEGATIVE); NITRITE, URINE Negative (NEGATIVE); PH,URINE 5.5 (5.0-8.0); PROTEIN,URINE Trace mg/dl (NEGATIVE); UGLUCOSE 100 MG/DL mg/dL (NEGATIVE); UROBILINOGEN,URINE 0.2 EU/dL (0.2)
[2018-09-29 00:41] LABS: BACTERIA,URINE Few /HPF (None Seen); SQUAMOUS EPITHELIAL CELL,UR Few /HPF (None Seen)
[2018-09-29 00:45] LABS: BAND % (MANUAL) 3 % (0.0-5.0); NEUTROPHILS % (MANUAL) 97 (42-76)
--- NOTE | 2018-09-29 01:23 | NUR ---
BED 325-2
--- NOTE | 2018-09-29 01:30 | NUR ---
REPORT GIVEN TO RN FOR VICTORIANO
[2018-09-29 02:05] VITALS: BP 99/59
--- NOTE | 2018-09-29 02:05 | NUR ---
RECEIVED PATIENT FROM ER FOR DX LEUKOCYTOSIS/ RO LEUKEMIA. AO X 3, ABLE TO MAKE NEEDS KNOWN. NO ACUTE DISTRESS NOTED. DENIES PAIN AT THIS TIME. RIGHT WRIST GAUGE 20 SL FLUSHED; INTACT, PATENT. SKIN ASSESSMENT DONE. SAFETY REMINDERS GIVEN. ON LOW BED WITH BILATERAL UPPER SIDE RAILS UP. CALL CALVILLO WITHIN EASY REACH.
[2018-09-29] MEDS ORDERED: ZOLPIDEM TARTRATE 5 MG TABLET PO PRN (02:30)
[2018-09-29] MEDS ORDERED: MORPHINE SULFATE INJ 2 MG/ML DISP.SYRIN IV PRN (02:30)
[2018-09-29] MEDS ORDERED: ALBUTEROL FS 2.5 MG/3 ML VIAL.NEB NEB PRN (02:30)
[2018-09-29] MEDS ORDERED: ACETAMINOPHEN 325 MG TABLET PO PRN (02:30)
[2018-09-29] MEDS ORDERED: LOPERAMIDE HCL (2 MG CAP) 2 MG CAPSULE PO PRN (02:30)
[2018-09-29] MEDS ORDERED: ONDANSETRON HCL/PF 4 MG/2 ML VIAL IVP PRN (02:30)
[2018-09-29] MEDS ORDERED: PREDNISONE PO (05:17)
--- NOTE | 2018-09-29 06:18 | NUR ---
PATIENT ASLEEP, EASILY AROUSABLE. RESPIRATIONS EVEN. NO SIGNS OF PAIN NOTED. NEEDS ATTENDED. KEPT CLEAN, DRY, AND COMFORTABLE. SAFETY PRECAUTIONS AND COMFORT MEASURES IN PLACE. WILL GIVE REPORT TO DAY SHIFT FOR CONTINUITY OF CARE.
[2018-09-29 07:11] LABS: BASOPHILS # (AUTO) 0.1 /CMM (0.0-0.2); LYMPHOCYTES # (AUTO) 0.3 /CMM (0.8-4.8)
--- NOTE | 2018-09-29 07:25 | NUR ---
MS/RN NOTE THE PATIENT ALERT AND ORIENTED X3. IN ROOM AIR AND DENIES SOB. RESPIRATION REGULAR AND UNLABORED. DENIES PAIN. THE PATIENT IN NO APPARENT DISTRESS. RIGHT WRIST G 20 PATENT AND SALINE LOCKED. BED LOW AND LOCKED. SIDE RAILS UP X3. CALL LIGHT WITHIN REACH. WILL CONTINUE TO MONITOR.
[2018-09-29 07:29] LABS: ALANINE AMINOTRANSFERASE 13 U/L (12-78); ALBUMIN 2.2 g/dL (3.4-5.0); ALKALINE PHOSPHATASE 178 U/L (46-116); ASPARTATE AMINOTRANSFERASE 13 U/L (15-37); B-TYPE NATRIURETIC PEPTIDE 1181 PG/ML (0-125); BILIRUBIN,TOTAL 0.7 mg/dL (0.2-1.0); CALCIUM, SERUM 8.9 mg/dL (8.5-10.1); CARBON DIOXIDE 26 mmol/L (21-32); CHLORIDE 104 mmol/L (98-107); CREATININE 0.4 mg/dL (0.6-1.3); MAGNESIUM 1.8 mg/dL (1.8-2.4); PHOSPHORUS 2.6 mg/dL (2.5-4.9); POTASSIUM 2.9 mmol/L (3.5-5.1); SODIUM SERUM 141 mmol/L (136-145); TOTAL PROTEIN, SERUM 5.1 g/dL (6.4-8.2); UREA NITROGEN, BLOOD 10 mg/dL (7-18)
[2018-09-29 07:30] LABS: BASOPHILS % (AUTO) 0.1 % (0.0-2.0); HEMATOCRIT 33 % (33-45); HEMOGLOBIN 10.5 g/dL (11.5-14.8); LYMPHOCYTES % (AUTO) 0.5 % (20.0-44.0); MEAN CORPUSCULAR HGB CONC 32 g/dl (31.0-36.0); MEAN CORPUSCULAR VOLUME 91 fL (82-100); MONOCYTES # (AUTO) 0.3 /CMM (0.1-1.30); MONOCYTES % (AUTO) 0.4 % (2.0-12.0); NEUTROPHILS # (AUTO) 72.8 /CMM (1.8-8.9); PLATELET COUNT (AUTO) 306 /CMM (150-450); RED BLOOD CELL COUNT(AUTO) 3.65 MIL/uL (4.0-5.2)
[2018-09-29 07:43] LABS: WHITE BLOOD COUNT (AUTO) 73.5 K/uL (4.3-11.0)
[2018-09-29 07:44] LABS: URIC ACID 1.8 mg/dL (2.6-7.2)
[2018-09-29 07:45] LABS: GLUCOSE 47 mg/dL (74-106)
[2018-09-29] MEDS: IPRATROPIUM NEB FS 0.5 MG/2.5 ML AMPUL.NEB NEB PRN ×2 (07:45→10:48)
[2018-09-29 08:00] VITALS: BP 97/52
--- NOTE | 2018-09-29 08:38 | NUR ---
WOUND CARE CONSULT WOUND CARE RECEIVED CONSULT FOR SACRAL WOUND. WOUND CARE WILL DEFER CONSULT AND ALL TREATMENT PLANS TO PLASTIC SURGICAL TEAM WHO HAVE BEEN NOTIFIED OF THE CONSULT. PATIENT WITH DUANE AT 15, ALL PRESSURE ULCER PREVENTION MEASURES ARE NOTED TO BE IN PLACE AT THIS TIME. WILL SEE PRN.
[2018-09-29 08:39] VITALS: BP 97/52
[2018-09-29] MEDS: MULTIVIT W/MINERALS 1 TAB TABLET PO SCH (09:00)
[2018-09-29] MEDS ORDERED: POTASSIUM CHLORIDE 10 MEQ TABLET.SA PO SCH (09:00)
[2018-09-29] MEDS: PROSTAT (PYXIS) 30 ML UDC PO SCH ×3 (09:00→17:00)
[2018-09-29] MEDS: ZINC SULFATE 220 MG CAPSULE PO SCH (09:00)
[2018-09-29] MEDS ORDERED: FUROSEMIDE 20 MG TABLET PO SCH (09:00)
[2018-09-29 09:07] LABS: MONOCYTES % (MANUAL) 2 % (0-11.0)
[2018-09-29 09:08] LABS: BAND % (MANUAL) 1 % (0.0-5.0); LYMPHOCYTES % (MANUAL) 0 % (16-48); NEUTROPHILS % (MANUAL) 97 (42-76)
[2018-09-29] MEDS: PANTOPRAZOLE 40 MG TABLET.DR PO SCH (10:05)
[2018-09-29] MEDS: ALLOPURINOL 100 MG TABLET PO SCH (10:06)
[2018-09-29] MEDS: ASCORBIC ACID 500 MG TABLET PO SCH (10:07)
[2018-09-29] MEDS: ACIDOPHILUS/BULGARICUS 1 EACH TAB.CHEW PO SCH (10:07)
[2018-09-29] MEDS: SUCRALFATE 1 G/10 ML UDC PO SCH ×4 (10:25→22:00)
--- NOTE | 2018-09-29 10:52 | NUR ---
RT NOTE HEART RATE IS ELEVATED AT 122. ATROVENT ONLY GIVEN FOR BREATHING TX.
--- NOTE | 2018-09-29 10:54 | NUR ---
MS/RN NOTE FOLLOW UP CALLS ARE MADE TO PHARMACY TO DELIVER ELIQUIS 2.5 MG DUE AT 0900. WILL CONTINUE TO FOLLOW UP UNTIL DELIVERED.
[2018-09-29] MEDS ORDERED: POTASSIUM CHLORIDE 20 MEQ TAB.PRT.SR PO SCH (11:30)
[2018-09-29] MEDS ORDERED: POTASSIUM CHLORIDE 10 MEQ TABLET.SA PO ONE (11:30)
[2018-09-29] MEDS: APIXABAN 2.5 MG TABLET PO SCH ×2 (12:10→17:00)
--- NOTE | 2018-09-29 12:27 | NUR ---
RN NOTE NOTED THAT VERONICA PEÑA PLACED AN ORDER FOR POTASSIUM CHLORIDE TOTAL OF 50 MEQ FOR REPLACEMENT DUE TO PATIENT POTASSIUM LEVEL IS 2.9. BROUGHT TO CARD MAKER`S ATTENTION THAT THE PATIENT HAS ALREADY RECEIVED 10 MEQ OF POTASSIUM IN THE MORNING AND IF 50 MEQ IS GIVEN THEN TOTAL OF 60 MEQ WOULD BE GIVEN TO THE PATIENT. VERONICA PEÑA GAVE NEW ORDER OF TO ADMINISTER 40 MEQ OF POTASSIUM SO THE TOTAL POTASSIUM REPLACEMENT WOULD BE 50 MEQ. THE ORDERS ARE READ BACK, VERIFIED. NOTED AND CARRIED OUT.
[2018-09-29] MEDS ORDERED: predniSONE 10 MG TABLET PO SCH (12:30)
[2018-09-29] MEDS ORDERED: POTASSIUM CHLORIDE 20 MEQ POWDER PACKET PO ONE (13:00)
--- NOTE | 2018-09-29 14:01 | NUR ---
MS/RN NOTE PATIENT VERBALIZED BEING ANXIOUS. VERONICA PEÑA IS MADE AWARE AND RECEIVED NEW ORDER OF ATIVAN. THE ORDER IS READ BACK, VERIFIED. NOTED AND CARRIED OUT.
[2018-09-29] MEDS: LORAZEPAM 1 MG TABLET PO PRN (14:21)
--- NOTE | 2018-09-29 14:21 | NUR ---
MS/RN NOTE ADMINISTERED ORDERED PRN ATIVAN FOR ANXIETY.
--- NOTE | 2018-09-29 15:00 | NUR ---
MS/RN NOTE THE PATIENT CALM AND VERBALIZED NOT BEING ANXIOUS ANYMORE.
[2018-09-29 16:00] VITALS: BP 99/53
[2018-09-29 16:10] VITALS: BP 99/53
--- NOTE | 2018-09-29 17:54 | NUR ---
RN NOTE THE PATIENT REFUSED ELIQUIS 2.5 MG AND CARAFATE 1 G DUE AT 1700. EXPLAINED RISKS AND BENEFITS MULTIPLE TIMES, HOWEVER, THE PATIENT REFUSED.
--- NOTE | 2018-09-29 18:55 | NUR ---
MS/RN NOTE MYCOLOG AND IODOSORB DUE AT 1800 ARE NOT ADMINISTERED DUE TO PHARMACY HAS NOT DELIVERED THE MEDICATIONS YET. FOLLOW UP CALL IS MADE. UPCOMING SHIFT IS ENDORSED TO ADMINISTER ONCE DELIVERED.
--- NOTE | 2018-09-29 18:56 | NUR ---
MS/RN NOTE THE PATIENT ALERT AND ORIENTED X3. IN ROOM AIR AND DENIES SOB. RESPIRATION REGULAR AND UNLABORED. OXYGEN SATURATION IN ROOM AIR AT 97%. DENIES PAIN AT THIS TIME. RIGHT WRIST G 20 PATENT AND SALINE LOCKED. BE SLOW AND LOCKED. SIDE RAILS UP X3. CALL LIGHT WITHIN REACH. WILL ENDORSE TO SANDER AND BUFFER.
[2018-09-29 20:00] VITALS: BP 109/56
--- NOTE | 2018-09-29 20:00 | NUR ---
MS RN NOTES RECEIVED PATIENT ASLEEP AND EASY TO AROUSE IN BED WITH NO DISTRESS NOTED. CALL LIGHT WITHIN REACH. NO C/O PAIN OR DISCOMFORT. PERIPHERAL LINE INTACT AND PATENT. BED IN LOW LOCK SETTING. ROOM FREE OF CLUTTER AND BELONGINGS KEPT NEAR BEDSIDE. WILL CONTINUE TO MONITOR.
[2018-09-29] MEDS: CEFEPIME 1 GM in IV D5W 50 ML IV SCH (20:54)
[2018-09-30] MEDS: NYSTATIN/TRIAMCIN CREAM 15 GM TUBE TP SCH ×2 (06:02→17:20)
--- NOTE | 2018-09-30 06:54 | NUR ---
MS RN NOTES PATIENT ASLEEP IN BED WITH NO DISTRESS NOTED. CALL LIGHT WITHIN REACH. NO C/O PAIN OR DISCOMFORT. PERIPHERAL LINE INTACT AND PATENT. BED IN LOW LOCK SETTING. ROOM FREE OF CLUTTER AND ALL BELONGINGS KEPT NEAR BEDSIDE. WILL ENDORSE TO ONCOMING SHIFT.
[2018-09-30 07:09] LABS: EOSINOPHILS % (AUTO) 0.3 % (0.0-6.0); HEMATOCRIT 31 % (33-45); HEMOGLOBIN 9.9 g/dL (11.5-14.8); LYMPHOCYTES # (AUTO) 0.3 /CMM (0.8-4.8); LYMPHOCYTES % (AUTO) 0.6 % (20.0-44.0); MEAN CORPUSCULAR HGB CONC 32 g/dl (31.0-36.0); MEAN CORPUSCULAR VOLUME 90 fL (82-100); MONOCYTES # (AUTO) 0.3 /CMM (0.1-1.30); MONOCYTES % (AUTO) 0.6 % (2.0-12.0); NEUTROPHILS # (AUTO) 56.7 /CMM (1.8-8.9); NEUTROPHILS % (AUTO) 98.5 % (43.0-81.0); PLATELET COUNT (AUTO) 182 /CMM (150-450); RED BLOOD CELL COUNT(AUTO) 3.41 MIL/uL (4.0-5.2)
[2018-09-30 07:11] LABS: CALCIUM, SERUM 8.7 mg/dL (8.5-10.1); CREATININE 0.4 mg/dL (0.6-1.3); POTASSIUM 3.9 mmol/L (3.5-5.1)
[2018-09-30 07:19] LABS: WHITE BLOOD COUNT (AUTO) 57.5 K/uL (4.3-11.0)
--- NOTE | 2018-09-30 07:40 | NUR ---
MS RN OPENING NOTES RECEIVED PT LAYING IN BED WITH HOB ELEVATED. PT IS A/O X3, AFEBRILE. RESPIRATIONS ARE EVEN AND UNLABORED, NOT IN ANY ACUTE DISTRESS NOTED. DENIES ANY CHEST PAIN, SOB, N/V. IV SITE TO R WRIST INTACT, NO INFILTRATION NOTED. DRESSING KEPT CLEAN AND DRY. SAFETY MEASURES ARE IN PLACE. INSTRUCTED PT TO USE CALL LIGHT WHEN ASSISTANCE IS NEEDED, CALL LIGHT IS LEFT WITHIN REACH. WILL REPOSITION PER PROTOCOL. WILL MONITOR THROUGHOUT SHIFT FOR CONTINUITY OF CARE.
[2018-09-30 08:00] VITALS: BP 113/58
[2018-09-30] MEDS: ASCORBIC ACID 500 MG TABLET PO SCH (08:46)
[2018-09-30] MEDS: ACIDOPHILUS/BULGARICUS 1 EACH TAB.CHEW PO SCH (08:47)
[2018-09-30] MEDS: ALLOPURINOL 100 MG TABLET PO SCH (08:47)
[2018-09-30] MEDS: PANTOPRAZOLE 40 MG TABLET.DR PO SCH (08:47)
[2018-09-30] MEDS: CEFEPIME 1 GM in IV D5W 50 ML IV SCH ×2 (08:47→21:33)
[2018-09-30] MEDS: SUCRALFATE 1 G/10 ML UDC PO SCH ×4 (08:47→21:36)
[2018-09-30] MEDS: APIXABAN 2.5 MG TABLET PO SCH ×2 (08:49→17:15)
[2018-09-30] MEDS: MULTIVIT W/MINERALS 1 TAB TABLET PO SCH (08:52)
[2018-09-30] MEDS: ZINC SULFATE 220 MG CAPSULE PO SCH (08:52)
[2018-09-30] MEDS: PROSTAT (PYXIS) 30 ML UDC PO SCH ×3 (08:58→17:00)
--- NOTE | 2018-09-30 08:59 | NUR ---
MS RN NOTES-- PT REFUSED ZINC SULFATE, MVI WITH MIN, AND PROSTAT. EXPLAINED THE RISKS AND BENEFITS OF MEDICATIONS X3, PT NOTED WITH REFUSAL. HONORED PT'S DIGNITY AND RIGHTS TO REFUSE. WILL CONTINUE TO MONITOR.
[2018-09-30 09:20] LABS: BAND % (MANUAL) 1 % (0.0-5.0); LYMPHOCYTES % (MANUAL) 1 % (16-48); MONOCYTES % (MANUAL) 4 % (0-11.0); NEUTROPHILS % (MANUAL) 94 (42-76)
[2018-09-30] MEDS: LORAZEPAM 1 MG TABLET PO PRN (09:38)
[2018-09-30] MEDS: CADEXOMER IODINE 40 GM TUBE TP SCH (10:23)
--- NOTE | 2018-09-30 15:59 | NUR ---
MS RN NOTES-- PT POSITIVE FOR MRSA NARES. ISOLATION PRECAUTION PROVIDED. PT MADE AWARE.
[2018-09-30 16:00] VITALS: BP 114/62
--- NOTE | 2018-09-30 18:29 | NUR ---
MS RN CLOSING NOTES ALL DUE MEDS GIVEN, NEEDS MET AND RENDERED. PT REMAINS A/O X3, AFEBRILE. RESPIRATIONS ARE EVEN AND UNLABORED, NOT IN ANY ACUTE DISTRESS NOTED. DENIES ANY PAIN, SOB,N/V. IV SITE TO RIGHT WRIST INTACT, NO INFILTRATION NOTED. DRESSING KEPT CLEAN AND DRY. SAFETY MEASURES ARE IN PLACE. REPOSITIONED PER PROTOCOL. DRESSING CHANGES TO SACRAL/BUTTOCKS AREA DONE NEEDED. WILL ENDORSE TO NEXT SHIFT FOR CONTINUITY OF CARE.
[2018-09-30 20:00] VITALS: BP 100/59
--- NOTE | 2018-09-30 20:00 | NUR ---
MS LORENZO INITIAL NOTES RECEIVED REPORT FROM AM NURSE AND CHECKED THE PATIENT . SHE'S RESTING WITH EYES CLOSED BUT AROUSE TO TOUCH. DENIES ANY PAIN OR ANY DISCOMFORT. RESPIRATION EVEN AND UNLABORED NOT IN ANY ACUTE DISTRESS NOTED. ISOLATION PRECAUTION IMPLEMENTED AND OBSERVED. KEPT HER WARM AND COMFORTABLE AT ALL TIMES. PLACE CALL LIGHT AT REACH. WILL CONTINUE MONITORING.
[2018-09-30] MEDS ORDERED: MUPIROCIN OINT 2% 22 GM TUBE SCH (21:00)
[2018-09-30] MEDS: MUPIROCIN OINT 2% 22 GM TUBE SCH (21:36)
[2018-09-30] MEDS: DOXYCYCLINE HYCLATE (100 MG) 100 MG TABLET PO SCH (21:36)
--- NOTE | 2018-10-01 | NUR ---
MS LORENZO NOTES PT SLEEPING COMFORTABLY IN BED AFTER NIGHT CARES AB CARE DONE WELL HER WOUND TX. KEPT HER WARM AND COMFORTABLE AT ALL TIMES. PLACE CALL LIGHT AT REACH.
[2018-10-01] MEDS: LORAZEPAM 1 MG TABLET PO PRN ×2 (03:04→11:22)
--- NOTE | 2018-10-01 03:13 | NUR ---
PROFESSIONAL BENEFITS SALES CONSULTANT NOTES PT WOKE UP ANOTHER BOWEL MOVEMENT ,IMODIUM CAPSULE GIVEN AND ATIVAN TABLET PER PT REQUESTED. SKIN TX ALSO DONE.KEPT HER WARM AND COMFORTABLE AT ALL TIMES. PLACE CALL LIGHT AT REACH. WILL CONTINUE MONITORING.
[2018-10-01] MEDS: NYSTATIN/TRIAMCIN CREAM 15 GM TUBE TP SCH (06:18)
--- NOTE | 2018-10-01 06:49 | NUR ---
MS INFANTRY UNIT LEADER CLOSING NOTES PT AWAKE AND ALERT , SPONGES BATH RENDERED AND WOUND CARE TREATMENT DONE ORDERED. DENIES ANY PAIN OR ANY DISCOMFORT. BREATHING EVEN AND UNLABORED, NOT IN ANY DISTRESS NOTED . STABLE MIRIAM THE NIGHT AND SLEPT WELL. PT STATED "THANK YOU GUYS" , REPOSITION PT FOR COMFORT. KEPT HER WARM AND COMFORTABLE AT ALL TIMES. ON SEMI FOWLERS POSITION WITH SIDE RAILS X2 UP AND BED IN LOW AND LOCK IN POSITION. PLACE CALL LIGHT AT REACH. WILL ENDORSE TO AM NURSE FOR CONTINUITY OF CARE.
--- NOTE | 2018-10-01 07:15 | NUR ---
MS RN OPENING NOTES RECEIVED PT LAYING IN BED WITH HOB ELEVATED. PT IS A/O X3, AFEBRILE. RESPIRATIONS ARE EVEN AND UNLABORED, NOT IN ANY ACUTE DISTRESS NOTED. DENIES ANY CHEST PAIN, SOB, N/V. IV SITE TO R WRIST INTACT, NO INFILTRATION NOTED. DRESSING KEPT CLEAN AND DRY. SAFETY MEASURES ARE IN PLACE. INSTRUCTED PT TO USE CALL LIGHT WHEN ASSISTANCE IS NEEDED, CALL LIGHT IS LEFT WITHIN REACH. WILL REPOSITION PER PROTOCOL AND PERFORM DRESSING CHANGES TO SACRAL NEEDED. WILL MONITOR THROUGHOUT SHIFT FOR CONTINUITY OF CARE.
[2018-10-01 08:00] VITALS: BP 106/57
[2018-10-01 08:00] LABS: BASOPHILS % (AUTO) 0.1 % (0.0-2.0); EOSINOPHILS % (AUTO) 0.7 % (0.0-6.0); HEMATOCRIT 26 % (33-45); HEMOGLOBIN 8.6 g/dL (11.5-14.8); LYMPHOCYTES # (AUTO) 0.2 /CMM (0.8-4.8); LYMPHOCYTES % (AUTO) 2.7 % (20.0-44.0); MEAN CORPUSCULAR HGB CONC 34 g/dl (31.0-36.0); MEAN CORPUSCULAR VOLUME 90 fL (82-100); MONOCYTES # (AUTO) 0.1 /CMM (0.1-1.30); MONOCYTES % (AUTO) 1.1 % (2.0-12.0); NEUTROPHILS # (AUTO) 6.6 /CMM (1.8-8.9); NEUTROPHILS % (AUTO) 95.4 % (43.0-81.0); PLATELET COUNT (AUTO) 114 /CMM (150-450); RED BLOOD CELL COUNT(AUTO) 2.87 MIL/uL (4.0-5.2); WHITE BLOOD COUNT (AUTO) 6.9 K/uL (4.3-11.0)
[2018-10-01 08:16] LABS: CALCIUM, SERUM 7.9 mg/dL (8.5-10.1); CREATININE 0.3 mg/dL (0.6-1.3); POTASSIUM 3.5 mmol/L (3.5-5.1)
[2018-10-01] MEDS: ACIDOPHILUS/BULGARICUS 1 EACH TAB.CHEW PO SCH (08:30)
[2018-10-01] MEDS: DOXYCYCLINE HYCLATE (100 MG) 100 MG TABLET PO SCH (08:30)
[2018-10-01] MEDS: SUCRALFATE 1 G/10 ML UDC PO SCH ×2 (08:30→11:22)
[2018-10-01] MEDS: PANTOPRAZOLE 40 MG TABLET.DR PO SCH (08:30)
[2018-10-01] MEDS: ASCORBIC ACID 500 MG TABLET PO SCH (08:30)
[2018-10-01] MEDS: CEFEPIME 1 GM in IV D5W 50 ML IV SCH (08:30)
[2018-10-01] MEDS: ALLOPURINOL 100 MG TABLET PO SCH (08:30)
[2018-10-01] MEDS: APIXABAN 2.5 MG TABLET PO SCH (08:31)
[2018-10-01] MEDS: MUPIROCIN OINT 2% 22 GM TUBE SCH (08:34)
[2018-10-01] MEDS: CADEXOMER IODINE 40 GM TUBE TP SCH (08:36)
[2018-10-01] MEDS: MULTIVIT W/MINERALS 1 TAB TABLET PO SCH (08:56)
[2018-10-01] MEDS: PROSTAT (PYXIS) 30 ML UDC PO SCH ×2 (08:56→12:36)
[2018-10-01] MEDS: ZINC SULFATE 220 MG CAPSULE PO SCH (08:56)
[2018-10-01 09:12] LABS: BASOPHILS % (AUTO) 0.1 % (0.0-2.0); HEMATOCRIT 26 % (33-45); HEMOGLOBIN 8.9 g/dL (11.5-14.8); LYMPHOCYTES # (AUTO) 0.1 /CMM (0.8-4.8); LYMPHOCYTES % (AUTO) 2.4 % (20.0-44.0); MEAN CORPUSCULAR HGB CONC 34 g/dl (31.0-36.0); MEAN CORPUSCULAR VOLUME 90 fL (82-100); MONOCYTES # (AUTO) 0.1 /CMM (0.1-1.30); MONOCYTES % (AUTO) 1.3 % (2.0-12.0); NEUTROPHILS # (AUTO) 5.7 /CMM (1.8-8.9); NEUTROPHILS % (AUTO) 95.2 % (43.0-81.0); PLATELET COUNT (AUTO) 114 /CMM (150-450); RED BLOOD CELL COUNT(AUTO) 2.92 MIL/uL (4.0-5.2)
[2018-10-01 09:17] LABS: BAND % (MANUAL) 1 % (0.0-5.0); LYMPHOCYTES % (MANUAL) 1 % (16-48); MONOCYTES % (MANUAL) 2 % (0-11.0); NEUTROPHILS % (MANUAL) 96 (42-76)
[2018-10-01 09:23] LABS: CALCIUM, SERUM 8.1 mg/dL (8.5-10.1); CREATININE 0.3 mg/dL (0.6-1.3); POTASSIUM 3.6 mmol/L (3.5-5.1)
[2018-10-01] MEDS ORDERED: DIPHENOXYLATE HCL/ATROP SULF 1 UDTAB TABLET PO PRN (11:30)
[2018-10-01] MEDS ORDERED: DIPHENOXYLATE HCL/ATROP SULF 5 ML UDC PO PRN (11:30)
--- NOTE | 2018-10-01 11:30 | NUR ---
MS RN NOTES-- PT SEEN AND EXAMINED BY VERONICA COLLAZO W/ ORDERS FOR DISCHARGE TO SNF.
[2018-10-01] MEDS ORDERED: DOXY100T2 PO (11:57)
[2018-10-01] MEDS ORDERED: MUPI22OI7 MC (12:00)
--- NOTE | 2018-10-01 13:30 | NUR ---
MS RN NOTES-- EXPLAINED DISCHARGE PAPERWORK TO PT WITH VERBAL AND WRITTEN AGREEMENT. CALLED [facility] EDUARDO, SPOKE WITH TRISTAN, FOR REPORT.
--- NOTE | 2018-10-01 15:15 | NUR ---
MS ELECTRIC SHIPYARD OPERATOR NOTE PT DISCHARGE TO [facility]IA [facility] ACCOMPANIED BY 2 PEELER OPERATOR IN MEDICALLY STABLE CONDITION. PT IS A/OX3, AFEBRILE. RESPIRATIONS ARE EVEN AND UNLABORED, NOT IN ANY ACUTE DISTRESS NOTED. PT DENIES ANY PAIN, NO C/O SOB, N/V. PUPILS ARE REACTIVE TO LIGHT, BILATERAL HAND EMBROIDERY DESIGNER ARE STRONG AND EQUAL. ABDOMEN IS SOFT AND NONDISTENDED, BOWEL SOUNDS ARE PRESENT IN ALL 4 QUADRANTS UPON AUSCULTATION. DENIES ANY BLADDER DISCOMFORT. IV SITE REMOVED, APPLIED PRESSURE AND TOLERATED WELL. ID BANDS REMOVED. PICTURES TAKEN TO SACRAL WOUNDS, DRESSING CHANGE DONE PRIOR TO LEAVING. ALL BELONGINGS SENT WITH PT. EXPLAINED DISCHARGE PAPERWORK WITH VERBAL AND WRITTEN AGREEMENT. BEDSIDE ENDORSEMENT GIVEN TO EMT PERSONNEL. PT LEFT IN STABLE CONDITION.
[2018-10-09] MEDS ORDERED: VANC125C11 PO (11:31)
[2018-10-09] MEDS ORDERED: METR-147 PO (11:31)
[2018-10-09] MEDS ORDERED: ACYC800T PO (11:31)
[2018-10-09] MEDS ORDERED: FLUC100T8 PO (11:31)
== END 2018-10-01 15:15 | DRG 841 ==
LOC: ER 22:53 → MED 09-29 01:29
PROVIDERS: ADMIT Nurse Practitioner Acute Care; ATTEND Nurse Practitioner Acute Care
DX: C85.10 Unspecified B-cell lymphoma, unspecified site (principal); N39.0 Urinary tract infection, site not specified; E44.0 Moderate protein-calorie malnutrition; R64 Cachexia; Z68.1 Body mass index [BMI] 19.9 or less, adult; K50.90 Crohn's disease, unspecified, without complications; E87.6 Hypokalemia; D72.829 Elevated white blood cell count, unspecified; J44.9 Chronic obstructive pulmonary disease, unspecified; I50.9 Heart failure, unspecified; D50.9 Iron deficiency anemia, unspecified; E16.2 Hypoglycemia, unspecified; Z92.21 Personal history of antineoplastic chemotherapy; E88.09 Other disorders of plasma-protein metabolism, not elsewhere classified; S31.829A Unspecified open wound of left buttock, initial encounter; S31.819A Unspecified open wound of right buttock, initial encounter; X58.XXXA Exposure to other specified factors, initial encounter; Y93.9 Activity, unspecified; Y92.009 Unspecified place in unspecified non-institutional (private) residence as the place of occurrence of the external cause; T45.1X5A Adverse effect of antineoplastic and immunosuppressive drugs, initial encounter; Z22.322 Carrier or suspected carrier of Methicillin resistant Staphylococcus aureus
CPT/HCPCS: 36415; 71045-TC; 80048-TC; 80053-TC; 81000-TC; 83605-TC; 83735-TC; 83880; 84100-TC; 84484-TC; 84550-TC; 85025-TC; 85730-TC; 87040-TC; 87081-TC; 87086-TC; 94799-TC; A6253; A6402; A6407; G0378; J0692; J7050; J7060

== ENCOUNTER 2018-10-03 23:01 | Inpatient (IN) | payer MEDICARE, BC ==
[~2018-10-03] VITALS: Ht 167.6 cm; Wt 44.5 kg
[~2018-10-03 23:01] MED LIST changes: +DOXY100T2 PO; +MUPI22OI7 MC
[2018-10-03 23:44] LABS: CALCIUM, SERUM 8.4 mg/dL (8.5-10.1); POTASSIUM 3.2 mmol/L (3.5-5.1)
[2018-10-03 23:45] LABS: CREATININE 0.5 mg/dL (0.6-1.3)
[2018-10-03 23:48] LABS: BASOPHILS % (AUTO) 1.1 % (0.0-2.0); EOSINOPHILS % (AUTO) 2.2 % (0.0-6.0); HEMATOCRIT 22 % (33-45); HEMOGLOBIN 7.3 g/dL (11.5-14.8); LYMPHOCYTES # (AUTO) 0.1 /CMM (0.8-4.8); LYMPHOCYTES % (AUTO) 19.6 % (20.0-44.0); MEAN CORPUSCULAR HGB CONC 33 g/dl (31.0-36.0); MEAN CORPUSCULAR VOLUME 91 fL (82-100); MONOCYTES % (AUTO) 16.5 % (2.0-12.0); NEUTROPHILS # (AUTO) 0.2 /CMM (1.8-8.9); NEUTROPHILS % (AUTO) 60.6 % (43.0-81.0); PLATELET COUNT (AUTO) 105 /CMM (150-450); RED BLOOD CELL COUNT(AUTO) 2.47 MIL/uL (4.0-5.2)
--- NOTE | 2018-10-03 23:50 | NUR ---
PT BRITTNEY MASON FROM [facility] WITH A C/O ABNORMAL LABS. PT IS AA&O X4. PT HAS HX OF CA IN HER COLON, BUT THE CA IS NOT COLON CA. PT HAS A RT UPPER CHEST PORT FOR CHEMO. PT IS ON THE MONITOR AND CONTINUOUS PULSE OX. PT IS ON 2L O2 VIA NC. PT HAS A SACRAL DECUBITUS ULCER AND HAS DIFFICULTY WALKING.
[2018-10-04 00:02] LABS: WHITE BLOOD COUNT (AUTO) 0.3 K/uL (4.3-11.0)
[2018-10-04 00:37] LABS: LYMPHOCYTES % (MANUAL) 18 % (16-48)
[2018-10-04 00:38] LABS: EOSINOPHILS % (MANUAL) 2 % (0-4); MONOCYTES % (MANUAL) 13 % (0-11.0)
[2018-10-04 00:39] LABS: NEUTROPHILS % (MANUAL) 67 (42-76)
--- NOTE | 2018-10-04 00:45 | NUR ---
REPORT GIVEN TO NICKOLAS CHRISTIAN
--- NOTE | 2018-10-04 00:50 | NUR ---
20G IV STARTED IN RT HAND. (3 UNSUCCESSFUL ATTEMPTS)
--- NOTE | 2018-10-04 01:00 | NUR ---
TUBE CLEANER NOTE RECEIVED PATIENT FROM ER VIA [facility], AOX3, SPEECH CLEAR, ON 2L O2 VIA NC, ON TELE SR, NO S/SX OF CARDIAC OR RESPIRATORY DISTRESS, + NON PRODUCTIVE COUGH, RIGHT HAND #20G SL, SITE IS CLEAN AND DRY, SKIN KEPT CLEAN AND DRY, INCONTINENT,NEEDS REINFORCEMENT ON TEACHINGS ON MGT OF CARE, SAFETY MAINTAINED AT ALL TIMES, BED IN LOW LOCKED POSITION, CALL LIGHT WITHIN REACH, WILL CONTINUE TO MONITOR FOR ANY CHANGES.
[2018-10-04 01:08] VITALS: BP 118/71
[2018-10-04] MEDS ORDERED: ONDANSETRON HCL/PF 4 MG/2 ML VIAL IVP PRN (02:00)
[2018-10-04] MEDS ORDERED: Z GUARD REMEDY 2 OZ OINT TP PRN (02:00)
[2018-10-04] MEDS ORDERED: POTASSIUM CHLORIDE 20 MEQ TAB.PRT.SR PO ONE (02:00)
[2018-10-04] MEDS ORDERED: ACETAMINOPHEN 325 MG TABLET PO PRN (02:00)
[2018-10-04] MEDS ORDERED: HYDROCODONE/APAP 5/325MG 1 EACH TABLET PO PRN (02:00)
--- NOTE | 2018-10-04 02:59 | NUR ---
DOCUMENT PROCESSOR NOTE PATIENT UNABLE TO SWALLOW K-DUR TABLETS ONLY TOOK HALF OF ONE TABLET AND REQUESTED MEDICATION THROUGH IV, CONTACT TO LINDA MARTIN ORDER FOR POTASSIUM 20MEQ ONCE IV
[2018-10-04] MEDS ORDERED: POTASSIUM CHLORIDE 10 MEQ/50 ML PREMIXED IVPB FOR PERIPHERAL LINE IV ONE (03:00)
[2018-10-04 04:00] VITALS: BP 112/58
--- NOTE | 2018-10-04 04:39 | NUR ---
WEB DESIGNER NOTE PATIENT IS REFUSING SECOND BAG OF 10MEQ KCL IV STATES NEEDS A BREAK AFTER THE FIRST BAG, INSTRUCTED ON RISKS VS BENEFITS, NEEDS CONTINUED EDUCATION ON MGT OF CARE.
[2018-10-04 07:58] LABS: BASOPHILS % (AUTO) 0.9 % (0.0-2.0); EOSINOPHILS % (AUTO) 8.2 % (0.0-6.0); HEMATOCRIT 22 % (33-45); HEMOGLOBIN 7.4 g/dL (11.5-14.8); LYMPHOCYTES # (AUTO) 0.1 /CMM (0.8-4.8); LYMPHOCYTES % (AUTO) 14.3 % (20.0-44.0); MEAN CORPUSCULAR HGB CONC 34 g/dl (31.0-36.0); MEAN CORPUSCULAR VOLUME 89 fL (82-100); MONOCYTES # (AUTO) 0.1 /CMM (0.1-1.30); NEUTROPHILS # (AUTO) 0.3 /CMM (1.8-8.9); NEUTROPHILS % (AUTO) 60.6 % (43.0-81.0); PLATELET COUNT (AUTO) 114 /CMM (150-450); RED BLOOD CELL COUNT(AUTO) 2.45 MIL/uL (4.0-5.2)
[2018-10-04 08:00] VITALS: BP 118/64
[2018-10-04 08:02] LABS: WHITE BLOOD COUNT (AUTO) 0.5 K/uL (4.3-11.0)
[2018-10-04 08:11] LABS: CALCIUM, SERUM 8.7 mg/dL (8.5-10.1); CREATININE 0.4 mg/dL (0.6-1.3); MAGNESIUM 1.6 mg/dL (1.8-2.4); POTASSIUM 3.3 mmol/L (3.5-5.1)
[2018-10-04] MEDS: ALBUTEROL FS 2.5 MG/3 ML VIAL.NEB NEB SCH ×6 (08:30→22:43)
--- NOTE | 2018-10-04 08:36 | NUR ---
RT Pt is awake and alert, no SOB or respiratory distress noted at this time. Pt is currently eating at this time and requested for RT to come back later to give HHN tx.
[2018-10-04 09:04] LABS: LYMPHOCYTES % (MANUAL) 32 % (16-48); MONOCYTES % (MANUAL) 12 % (0-11.0); NEUTROPHILS % (MANUAL) 56 (42-76)
[2018-10-04] MEDS: IPRATROPIUM NEB FS 0.5 MG/2.5 ML AMPUL.NEB NEB SCH ×5 (09:16→22:40)
[2018-10-04] MEDS: GUAIFENESIN LA 600 MG TABLET.SA PO SCH ×2 (10:30→10:31)
[2018-10-04] MEDS ORDERED: BUDESONIDE RESPULE INH 0.25 MG/2 ML AMPUL.NEB NEB SCH ×2 (10:30→11:33)
[2018-10-04] MEDS: Magnesium 1GM/D5W 100ML PREMIX 100 ML IV SCH ×2 (10:31→11:43)
[2018-10-04] MEDS: ACETYLCYSTEINE 10% SOLN 400 MG/4 ML VIAL NEB SCH ×2 (11:46→17:21)
[2018-10-04 12:00] VITALS: BP 114/62
--- NOTE | 2018-10-04 12:17 | NUR ---
WOUND CARE CONSULT WOUND CARE RECEIVED CONSULT FOR ULCER ON BUTTOCKS AND PERINEAL MASD. WOUND CARE WILL DEFER CONSULT AND TREATMENT PLANS TO PLASTIC SURGICAL TEAM WHO ARE CURRENTLY FOLLOWING THIS PATIENT. PATIENT WITH DUANE AT 14, ALL PRESSURE ULCER PREVENTION MEASURES ARE NOTED TO BE IN PLACE. WILL SEE PRN.
[2018-10-04] MEDS: NYSTATIN/TRIAMCIN CREAM 15 GM TUBE TP SCH (13:18)
[2018-10-04] MEDS ORDERED: K PHOS NEUTRAL 250 MG TABLET PO ONE (15:00)
[2018-10-04] MEDS ORDERED: POTASSIUM CHLORIDE 20 MEQ POWDER PACKET PO SCH ×2 (15:30→17:00)
[2018-10-04 16:00] VITALS: BP 111/61
[2018-10-04] MEDS ORDERED: NEUTRA PHOS 1 POWD.PACKET PO ONE ×2 (17:00)
[2018-10-04] MEDS: BUDESONIDE RESPULE INH 0.25 MG/2 ML AMPUL.NEB NEB SCH (19:20)
--- NOTE | 2018-10-04 19:41 | NUR ---
C4 PLANNER NOTE: RECEIVED PT SITTING ON BED ALERT AND ORIENTED X3. ABLE TO MAKE NEEDS KNOWN. NO APPARENT DISTRESS NOTED. NO COMPLAINTS OF PAIN OR DISCOMFORT AT THIS TIME. NO SOB NOTED. ON TELE MONITOR SINUS TACHY HR 104BPM. IV ON LEFT ANTECUBITAL #22 INTACT AND PATENT, FLUSHING WELL. KEPT CLEAN, DRY AND COMFORTABLE. CALL LIGHT PLACED WITHIN REACH. SAFETY AND FALL PRECAUTIONS OBSERVED AND MAINTAINED. WILL CONTINUE TO MONITOR PT.
[2018-10-04 20:00] VITALS: BP 118/66
[2018-10-04] MEDS ORDERED: LOPERAMIDE HCL (2 MG CAP) 2 MG CAPSULE PO PRN (21:00)
[2018-10-04] MEDS ORDERED: DIPHENOXYLATE HCL/ATROP SULF 1 UDTAB TABLET PO PRN (21:00)
[2018-10-04] MEDS: SUCRALFATE 1 G/10 ML UDC PO SCH (21:26)
[2018-10-04] MEDS: DOXYCYCLINE HYCLATE (100 MG) 100 MG TABLET PO SCH (21:26)
[2018-10-04] MEDS: AZITHROMYCIN 250 MG TABLET PO SCH (21:26)
[2018-10-04] MEDS: SIMETHICONE MM SCH (21:27)
[2018-10-04] MEDS: MAGNESIUM HYDROXIDE MM SCH (21:27)
[2018-10-04] MEDS: LIDOCAINE MM SCH (21:27)
[2018-10-04] MEDS: NYSTATIN MM SCH (21:27)
[2018-10-04] MEDS: MUPIROCIN OINT 2% 22 GM TUBE TP SCH (21:27)
[2018-10-04] MEDS: ALUMINUM HYDROXIDE MM SCH (21:27)
[2018-10-04] MEDS ORDERED: Medication Not On Formulary EA (Ipratropium/Albuterol Sulfate (Duoneb 2.5-0.5 Mg/3 Ml So IH SCH (23:30)
[2018-10-05] VITALS: BP 102/61
[2018-10-05] MEDS: NYSTATIN/TRIAMCIN CREAM 15 GM TUBE TP SCH ×2 (00:12→11:59)
[2018-10-05] MEDS: ALBUTEROL FS 2.5 MG/3 ML VIAL.NEB NEB SCH ×6 (02:52→23:34)
[2018-10-05] MEDS: IPRATROPIUM NEB FS 0.5 MG/2.5 ML AMPUL.NEB NEB SCH ×6 (02:52→23:34)
[2018-10-05 05:00] VITALS: BP 114/61
--- NOTE | 2018-10-05 06:38 | NUR ---
MS RN NOTE: NO CHANGES NOTED THROUGHOUT THE SHIFT. NO APPARENT DISTRESS NOTED. NO COMPLAINTS OF PAIN OR DISCOMFORT AT THIS TIME. ON 2LPM NASAL CANNULA, SATURATING WELL. KEPT CLEAN, DRY AND COMFORTABLE. SAFETY AND FALL PRECAUTIONS OBSERVED AND MAINTAINED. WILL ENDORSE TO DAY SHIFT RN FOR CONTINUITY OF CARE
[2018-10-05 06:52] LABS: CALCIUM, SERUM 7.9 mg/dL (8.5-10.1); CREATININE 0.3 mg/dL (0.6-1.3); MAGNESIUM 1.8 mg/dL (1.8-2.4); PHOSPHORUS 2.9 mg/dL (2.5-4.9); POTASSIUM 3.1 mmol/L (3.5-5.1)
[2018-10-05] MEDS: BUDESONIDE RESPULE INH 0.25 MG/2 ML AMPUL.NEB NEB SCH ×2 (07:50→19:47)
[2018-10-05 08:00] VITALS: BP 120/82
--- NOTE | 2018-10-05 08:11 | NUR ---
RN OPENING NOTES PT AWAKE AND RESTING IN BED. CAREGIVER AT BEDSIDE. NO COMPLAINTS OF PAIN, DISTRESS OR SOB AT THIS TIME. PT IS ON 2L O2 VIA NASAL CANNULA. PT HAS A LEFT AC #22 IV INTACT AND PATENT, AND A RIGHT CHEST WALL DAMI CATH. SAFETY PRECAUTIONS IN PLACE, BED IN LOWEST LOCKED POSITION, X3 SIDE RAILS UP AND CALL LIGHT WITHIN REACH. WILL CONTINUE TO MONITOR.
--- NOTE | 2018-10-05 08:44 | NUR ---
RN NOTES PT REQUESTED TO HOLD ALL MEDICATION AT THIS TIME. WILL FOLLOW UP.
[2018-10-05] MEDS: PROSOURCE / PROSTAT (PYXIS) 30 ML UDC PO SCH ×3 (09:00→16:30)
[2018-10-05] MEDS: ZINC SULFATE 220 MG CAPSULE PO SCH (09:00)
[2018-10-05] MEDS ORDERED: FUROSEMIDE 20 MG TABLET PO SCH (09:00)
[2018-10-05] MEDS: POTASSIUM CHLORIDE 10 MEQ TABLET.SA PO SCH (09:00)
[2018-10-05] MEDS ORDERED: APIXABAN 2.5 MG TABLET PO SCH (09:00)
[2018-10-05] MEDS ORDERED: DOXYCYCLINE HYCLATE (100 MG) 100 MG TABLET PO SCH (09:00)
[2018-10-05] MEDS: PANTOPRAZOLE 40 MG TABLET.DR PO SCH (09:33)
[2018-10-05] MEDS: DOXYCYCLINE HYCLATE (100 MG) 100 MG TABLET PO SCH ×2 (09:33→21:52)
[2018-10-05] MEDS: SUCRALFATE 1 G/10 ML UDC PO SCH ×4 (09:33→21:52)
[2018-10-05] MEDS: ACIDOPHILUS/BULGARICUS 1 EACH TAB.CHEW PO SCH (09:34)
[2018-10-05] MEDS: ASCORBIC ACID 500 MG TABLET PO SCH (09:35)
[2018-10-05] MEDS: ALLOPURINOL 100 MG TABLET PO SCH (09:35)
[2018-10-05] MEDS: MAGNESIUM HYDROXIDE MM SCH ×4 (09:45→21:53)
[2018-10-05] MEDS: ALUMINUM HYDROXIDE MM SCH ×4 (09:45→21:53)
[2018-10-05] MEDS: SIMETHICONE MM SCH ×4 (09:45→21:53)
[2018-10-05] MEDS: NYSTATIN MM SCH ×4 (09:45→21:53)
[2018-10-05] MEDS: LIDOCAINE MM SCH ×4 (09:45→21:53)
[2018-10-05] MEDS ORDERED: POTASSIUM CHLORIDE 20 MEQ TAB.PRT.SR PO SCH (10:00)
[2018-10-05] MEDS: ACETYLCYSTEINE 10% SOLN 400 MG/4 ML VIAL NEB SCH ×2 (10:48→17:09)
[2018-10-05] MEDS: POTASSIUM CHLORIDE 20 MEQ POWDER PACKET PO SCH ×4 (10:54→12:05)
[2018-10-05] MEDS: MUPIROCIN OINT 2% 22 GM TUBE TP SCH (10:54)
[2018-10-05] MEDS: MULTIVIT W/MINERALS 1 TAB TABLET PO SCH (12:04)
[2018-10-05 16:00] VITALS: BP 102/68
--- NOTE | 2018-10-05 16:37 | NUR ---
RN NOTES PER TERMINAL MANAGER MAEGAN RAMIREZ, OKAY TO RESUME HOME MEDICATION ELIQUIS.
[2018-10-05] MEDS: APIXABAN 2.5 MG TABLET PO SCH (16:51)
[2018-10-05] MEDS: FLUCONAZOLE (100 MG) 100 MG TABLET PO SCH (18:20)
--- NOTE | 2018-10-05 18:59 | NUR ---
RN CLOSING NOTES PT AWAKE AND RESTING IN BED. NO COMPLAINTS OF PAIN, DISTRESS OR SOB DURING SHIFT. PT IS ON 2L O2 VIA NASAL CANNULA. PT HAS A LEFT AC #22 IV INTACT AND PATENT, AND A RIGHT CHEST WALL DAMI CATH. SAFETY PRECAUTIONS IN PLACE, BED IN LOWEST LOCKED POSITION, X3 SIDE RAILS UP AND CALL LIGHT WITHIN REACH. WILL ENDORSE TO CREDIT UNDERWRITER NURSE FOR CONTINUITY OF CARE.
--- NOTE | 2018-10-05 19:20 | NUR ---
RN OPEN NOTES RECEIVED PATIENT AWAKE IN BED. A/O X4. NO SIGNS OF DISTRESS OR DISCOMFORT. ON 2LPM O2 VIA NC. DENIES ANY PAIN AT THIS TIME. HAS RCW PORTACATH AND IV IN LAC, PATENT AND INTACT, NO SIGNS OF REDNESS OR INFILTRATION. BED IN LOW LOCKED POSITION WITH SIDE RAILS X3. CALL LIGHT WITHIN REACH. WILL CONTINUE MONITOR.
[2018-10-05 19:24] LABS: ALBUMIN 1.9 g/dL (3.4-5.0); BILIRUBIN,TOTAL 0.3 mg/dL (0.2-1.0); CALCIUM, SERUM 8.2 mg/dL (8.5-10.1); CREATININE 0.3 mg/dL (0.6-1.3); POTASSIUM 3.9 mmol/L (3.5-5.1); TOTAL PROTEIN, SERUM 4.8 g/dL (6.4-8.2)
[2018-10-05 20:00] VITALS: BP 104/52
[2018-10-05 21:11] LABS: BASOPHILS % (AUTO) 1.5 % (0.0-2.0); EOSINOPHILS % (AUTO) 3.5 % (0.0-6.0); HEMATOCRIT 22 % (33-45); HEMOGLOBIN 7.2 g/dL (11.5-14.8); LYMPHOCYTES # (AUTO) 0.1 /CMM (0.8-4.8); LYMPHOCYTES % (AUTO) 8.5 % (20.0-44.0); MEAN CORPUSCULAR HGB CONC 34 g/dl (31.0-36.0); MEAN CORPUSCULAR VOLUME 89 fL (82-100); MONOCYTES # (AUTO) 0.1 /CMM (0.1-1.30); MONOCYTES % (AUTO) 10.7 % (2.0-12.0); NEUTROPHILS # (AUTO) 0.8 /CMM (1.8-8.9); NEUTROPHILS % (AUTO) 75.8 % (43.0-81.0); PLATELET COUNT (AUTO) 145 /CMM (150-450); RED BLOOD CELL COUNT(AUTO) 2.41 MIL/uL (4.0-5.2)
[2018-10-05 21:24] LABS: WHITE BLOOD COUNT (AUTO) 1.1 K/uL (4.3-11.0)
[2018-10-05 21:34] LABS: BAND % (MANUAL) 22 % (0.0-5.0); EOSINOPHILS % (MANUAL) 2 % (0-4); LYMPHOCYTES % (MANUAL) 8 % (16-48); MONOCYTES % (MANUAL) 10 % (0-11.0); NEUTROPHILS % (MANUAL) 58 (42-76)
[2018-10-05] MEDS: AZITHROMYCIN 250 MG TABLET PO SCH (21:52)
[2018-10-06] VITALS (9 sets, daily range): BP systolic 10–121; BP diastolic 62–77
[2018-10-06] MEDS: NYSTATIN/TRIAMCIN CREAM 15 GM TUBE TP SCH ×3 (00:19→23:21)
[2018-10-06] MEDS: ZOLPIDEM TARTRATE 5 MG TABLET PO PRN ×2 (01:49→23:32)
--- NOTE | 2018-10-06 01:50 | NUR ---
RN NOTES ADMINISTERED AMBIEN 5MG ORDERED AT PATIENT REQUEST FOR INSOMNIA. WILL CONTINUE TO MONITOR.
[2018-10-06] MEDS: IPRATROPIUM NEB FS 0.5 MG/2.5 ML AMPUL.NEB NEB SCH ×6 (03:30→23:13)
[2018-10-06] MEDS: ALBUTEROL FS 2.5 MG/3 ML VIAL.NEB NEB SCH ×8 (03:30→23:14)
[2018-10-06 06:23] LABS: BASOPHILS % (AUTO) 1.7 % (0.0-2.0); EOSINOPHILS % (AUTO) 2.9 % (0.0-6.0); LYMPHOCYTES # (AUTO) 0.1 /CMM (0.8-4.8); MEAN CORPUSCULAR HGB CONC 34 g/dl (31.0-36.0); MEAN CORPUSCULAR VOLUME 89 fL (82-100); MONOCYTES # (AUTO) 0.1 /CMM (0.1-1.30); MONOCYTES % (AUTO) 13.5 % (2.0-12.0); NEUTROPHILS # (AUTO) 0.8 /CMM (1.8-8.9); NEUTROPHILS % (AUTO) 73.9 % (43.0-81.0); PLATELET COUNT (AUTO) 150 /CMM (150-450); RED BLOOD CELL COUNT(AUTO) 2.27 MIL/uL (4.0-5.2)
--- NOTE | 2018-10-06 06:41 | NUR ---
RN OPEN NOTES PATIENT AWAKE RESTING IN BED. A/O X4. NO SIGNS OF DISTRESS OR DISCOMFORT. ON 2LPM O2 VIA NC. DENIES ANY PAIN AT THIS TIME. HAS RCW PORTACATH AND IV IN LAC, PATENT AND INTACT, NO SIGNS OF REDNESS OR INFILTRATION. ALL NEEDS MET. NO SIGNIFICANT CHANGES THROUGH THE NIGHT. PATIENT REPOSITIONED Q2H AND PRN. BED IN LOW LOCKED POSITION WITH SIDE RAILS X3. CALL LIGHT WITHIN REACH. WILL ENDORSE TO AM SHIFT FOR VICTORIANO.
[2018-10-06 06:46] LABS: ALBUMIN 1.8 g/dL (3.4-5.0); BILIRUBIN,TOTAL 0.3 mg/dL (0.2-1.0); CALCIUM, SERUM 8.2 mg/dL (8.5-10.1); CREATININE 0.3 mg/dL (0.6-1.3); POTASSIUM 3.6 mmol/L (3.5-5.1); TOTAL PROTEIN, SERUM 4.4 g/dL (6.4-8.2)
--- NOTE | 2018-10-06 06:57 | NUR ---
RN NOTES RECEIVED CRITICAL LAB VALUE WBC 1.1, HGB 6.9, HCT 20, PUT IN CALL TO Wandrian TO NOTIFY MD WAS AWAITING ANSWER FOR 5 MINS. WILL ENDORSE TO AM SHIFT FOR VICTORIANO.
[2018-10-06 06:58] LABS: HEMOGLOBIN 6.9 g/dL (11.5-14.8); WHITE BLOOD COUNT (AUTO) 1.1 K/uL (4.3-11.0)
[2018-10-06 06:59] LABS: HEMATOCRIT 20 % (33-45)
[2018-10-06] MEDS: MAGNESIUM HYDROXIDE MM SCH ×4 (07:17→23:18)
[2018-10-06] MEDS: NYSTATIN MM SCH ×4 (07:17→23:18)
[2018-10-06] MEDS: ALUMINUM HYDROXIDE MM SCH ×4 (07:17→23:18)
[2018-10-06] MEDS: LIDOCAINE MM SCH ×4 (07:17→23:18)
[2018-10-06] MEDS: SIMETHICONE MM SCH ×4 (07:17→23:18)
--- NOTE | 2018-10-06 07:26 | NUR ---
RN MS OPENING NOTES PATIENT AWAKE RESTING IN BED. A/O X4. NO SIGNS OF DISTRESS OR DISCOMFORT. ON 2LPM O2 VIA NC. DENIES ANY PAIN AT THIS TIME. HAS RCW PORTACATH AND IV IN LAC, PATENT AND INTACT, NO SIGNS OF REDNESS OR INFILTRATION.PRIVATE FOREIGN SERVICE OFFICER AT BEDSIDE ALL SAFETY PRECAUTIONS IN PLACE BED IN LOW LOCKED POSITION WITH SIDE RAILS X3. CALL LIGHT WITHIN REACH.
[2018-10-06] MEDS: PANTOPRAZOLE 40 MG TABLET.DR PO SCH (07:38)
[2018-10-06] MEDS: SUCRALFATE 1 G/10 ML UDC PO SCH ×4 (07:38→23:20)
[2018-10-06] MEDS: ACETYLCYSTEINE 10% SOLN 400 MG/4 ML VIAL NEB SCH ×2 (08:02→16:02)
[2018-10-06] MEDS: BUDESONIDE RESPULE INH 0.25 MG/2 ML AMPUL.NEB NEB SCH ×2 (08:02→19:47)
[2018-10-06 08:04] LABS: BAND % (MANUAL) 6 % (0.0-5.0); EOSINOPHILS % (MANUAL) 3 % (0-4); LYMPHOCYTES % (MANUAL) 8 % (16-48); MONOCYTES % (MANUAL) 12 % (0-11.0); NEUTROPHILS % (MANUAL) 71 (42-76)
[2018-10-06] MEDS: APIXABAN 2.5 MG TABLET PO SCH ×2 (09:00→17:25)
[2018-10-06] MEDS: ZINC SULFATE 220 MG CAPSULE PO SCH (09:08)
[2018-10-06] MEDS: ASCORBIC ACID 500 MG TABLET PO SCH (09:08)
[2018-10-06] MEDS: POTASSIUM CHLORIDE 10 MEQ TABLET.SA PO SCH (09:09)
[2018-10-06] MEDS: ALLOPURINOL 100 MG TABLET PO SCH (09:09)
[2018-10-06] MEDS: PROSOURCE / PROSTAT (PYXIS) 30 ML UDC PO SCH ×3 (09:09→17:25)
[2018-10-06] MEDS: ACIDOPHILUS/BULGARICUS 1 EACH TAB.CHEW PO SCH (09:09)
[2018-10-06] MEDS: DOXYCYCLINE HYCLATE (100 MG) 100 MG TABLET PO SCH (09:09)
--- NOTE | 2018-10-06 09:38 | NUR ---
RN MS NOTES SPOKE WITH DR SHERIFF. TELEPHONE ORDER FOR 1 UNIT PRBC HGB 6.9 HC 20 WBC 1.1
[2018-10-06] MEDS: POTASSIUM CHLORIDE 20 MEQ POWDER PACKET PO SCH (09:44)
[2018-10-06] MEDS: MULTIVIT W/MINERALS 1 TAB TABLET PO SCH (12:26)
--- NOTE | 2018-10-06 12:56 | NUR ---
RN MS NOTES CLARIFIED WITH MAEGAN RAMIREZ IN REGARDS TO ELIQUIS. OK PER DR SHERIFF PATIENT NEEDS PROPHYLAXIS NO ACTIVE BLEEDING AT THIS TIME
--- NOTE | 2018-10-06 14:27 | NUR ---
RN MS NOTES BLOOD STARTED WILL CONT TO MONITOR PER PROTOCOL
[2018-10-06] MEDS: FLUCONAZOLE (100 MG) 100 MG TABLET PO SCH (17:23)
[2018-10-06] MEDS: ACYCLOVIR 800 MG TABLET PO SCH (17:24)
--- NOTE | 2018-10-06 17:34 | NUR ---
RN MS NOTES BLOOD TRANSFUSION COMPLETE VITAL SIGNS REMAINED STABLE NO REACTIONS NOTED.
[2018-10-06] MEDS ORDERED: NYSTATIN (PYXIS) 500,000 UNIT/5 ML ORAL.SUSP PO ONE (17:37)
[2018-10-06] MEDS ORDERED: LIDOCAINE VISCOUS 2% UD 15 ML UDC PO ONE (17:37)
[2018-10-06] MEDS ORDERED: MAG HYDROX/AL HYDROX/SIMETH 30 ML UDC PO ONE (17:37)
--- NOTE | 2018-10-06 18:15 | NUR ---
RN MS NOTES PATIENT SITTING IN CHAIR AT BEDSIDE EATING DINNER
--- NOTE | 2018-10-06 19:02 | NUR ---
RN CLOSING NOTES REPORT GIVEN TO NOC. PATIENT ALERT AND ORIENTED X3 NO SIGNS OR SYMPTOMS OF RESPIRATORY DISTRESS OR ACUTE PAIN. ON 2 LTRS NASAL CANNULA. IV SALINE LOCK LAC # 22 FLUSHING WELL. RCW PORTACATH. PATIENT HAVING LARGE WATERY STOOL NON CDIFF. RECEIVED 1 UNIT PRBC TOLERATED WELL. OOB IN CHAIR FOR DINNER APPETITE FAIR. SAFETY PRECAUTIONS IN PLCE BED IN LOW POSITION CALL LIGHT WITHIN REACH. WILL ENDORSE TO NOC
--- NOTE | 2018-10-06 19:30 | NUR ---
MS1/RN RECEIVE PATIENT IN BED AWAKE, ALERT, ORIENTED, COMFORTABLE, NO C/O PAIN, NO DISTRESS NOTED, CALL LIGHT IN REACH, FALL PRECAUTIONS, ENCOURAGED TO CALL FOR ANT ASSISTANCE, VERBALIZED UNDERSTANDING. WILL MONITOR.
--- NOTE | 2018-10-07 00:45 | NUR ---
MS1/RN PATIENT IS SLEEPING AT THIS TIME, AROUSABLE, APPEAR COMFORTABLE, NO SIGNS OF DISTRESS NOTED, CALL LIGHT IN REACH. WILL CONTINUE TO MONITOR.
[2018-10-07] MEDS: ALBUTEROL FS 2.5 MG/3 ML VIAL.NEB NEB SCH ×6 (03:21→23:26)
[2018-10-07] MEDS: IPRATROPIUM NEB FS 0.5 MG/2.5 ML AMPUL.NEB NEB SCH ×7 (03:21→23:26)
[2018-10-07 03:49] VITALS: BP 108/75
--- NOTE | 2018-10-07 06:00 | NUR ---
MS1/RN PATIENT IS AWAKE, COMFORTABLE, NO DISTRESS NOTED, CALL LIGHT IN REACH, ALL NEEDS ATTENDED AT THIS TIME, WILL CONTINUE TO MONITOR.
[2018-10-07 07:13] LABS: BASOPHILS % (AUTO) 0.9 % (0.0-2.0); EOSINOPHILS % (AUTO) 0.9 % (0.0-6.0); HEMATOCRIT 27 % (33-45); HEMOGLOBIN 9.2 g/dL (11.5-14.8); LYMPHOCYTES # (AUTO) 0.1 /CMM (0.8-4.8); MEAN CORPUSCULAR HGB CONC 34 g/dl (31.0-36.0); MEAN CORPUSCULAR VOLUME 89 fL (82-100); MONOCYTES # (AUTO) 0.2 /CMM (0.1-1.30); MONOCYTES % (AUTO) 13.2 % (2.0-12.0); NEUTROPHILS # (AUTO) 1.3 /CMM (1.8-8.9); PLATELET COUNT (AUTO) 192 /CMM (150-450); RED BLOOD CELL COUNT(AUTO) 3.03 MIL/uL (4.0-5.2)
[2018-10-07 07:20] LABS: WHITE BLOOD COUNT (AUTO) 1.7 K/uL (4.3-11.0)
[2018-10-07] MEDS: BUDESONIDE RESPULE INH 0.25 MG/2 ML AMPUL.NEB NEB SCH ×2 (07:20→19:22)
--- NOTE | 2018-10-07 07:24 | NUR ---
RN MS OPENING NOTES PATIENT AWAKE RESTING IN BED. A/O X4 PRIVATE CAREGIVER AT BEDSIDE NO SIGNS OF DISTRESS OR DISCOMFORT. ON 2LPM O2 VIA NC. DENIES ANY PAIN AT THIS TIME. HAS RCW PORTACATH AND IV IN LAC,# 22 PATENT AND INTACT, NO SIGNS OF REDNESS OR INFILTRATION ALL SAFETY PRECAUTIONS IN PLACE BED IN LOW LOCKED POSITION WITH SIDE RAILS X3. CALL LIGHT WITHIN REACH.
--- NOTE | 2018-10-07 07:26 | NUR ---
CRITICAL LAB WBC 1.7 PATIENT ON NEUTROPENIC ISOLATION
[2018-10-07 07:27] LABS: ALBUMIN 1.9 g/dL (3.4-5.0); BILIRUBIN,TOTAL 0.4 mg/dL (0.2-1.0); CALCIUM, SERUM 8.4 mg/dL (8.5-10.1); CREATININE 0.3 mg/dL (0.6-1.3); POTASSIUM 3.1 mmol/L (3.5-5.1); TOTAL PROTEIN, SERUM 4.7 g/dL (6.4-8.2)
[2018-10-07] MEDS: SUCRALFATE 1 G/10 ML UDC PO SCH ×4 (07:57→22:37)
[2018-10-07] MEDS: LIDOCAINE MM SCH ×4 (07:57→22:37)
[2018-10-07] MEDS: PANTOPRAZOLE 40 MG TABLET.DR PO SCH (07:57)
[2018-10-07] MEDS: ALUMINUM HYDROXIDE MM SCH ×4 (07:57→22:37)
[2018-10-07] MEDS: SIMETHICONE MM SCH ×4 (07:57→22:37)
[2018-10-07] MEDS: NYSTATIN MM SCH ×4 (07:57→22:37)
[2018-10-07] MEDS: MAGNESIUM HYDROXIDE MM SCH ×4 (07:57→22:37)
[2018-10-07 08:00] VITALS: BP 121/72
[2018-10-07] MEDS: ACIDOPHILUS/BULGARICUS 1 EACH TAB.CHEW PO SCH (09:39)
[2018-10-07] MEDS: ASCORBIC ACID 500 MG TABLET PO SCH (09:39)
[2018-10-07] MEDS: ACYCLOVIR 800 MG TABLET PO SCH ×2 (09:39→17:20)
[2018-10-07] MEDS: ZINC SULFATE 220 MG CAPSULE PO SCH (09:39)
[2018-10-07] MEDS: ALLOPURINOL 100 MG TABLET PO SCH (09:39)
[2018-10-07] MEDS: PROSOURCE / PROSTAT (PYXIS) 30 ML UDC PO SCH ×3 (09:40→17:21)
[2018-10-07] MEDS: POTASSIUM CHLORIDE 20 MEQ POWDER PACKET PO SCH (09:40)
[2018-10-07 09:43] LABS: BAND % (MANUAL) 8 % (0.0-5.0); LYMPHOCYTES % (MANUAL) 6 % (16-48); MONOCYTES % (MANUAL) 10 % (0-11.0); NEUTROPHILS % (MANUAL) 76 (42-76)
[2018-10-07] MEDS: POTASSIUM CHLORIDE 20 MEQ TAB.PRT.SR PO SCH ×2 (10:00→11:00)
[2018-10-07] MEDS: ACETYLCYSTEINE 10% SOLN 400 MG/4 ML VIAL NEB SCH (11:02)
[2018-10-07] MEDS ORDERED: POTASSIUM CHLORIDE 20 MEQ POWDER PACKET PO ONE (12:30)
[2018-10-07] MEDS: APIXABAN 2.5 MG TABLET PO SCH ×2 (12:31→17:22)
[2018-10-07] MEDS: NYSTATIN/TRIAMCIN CREAM 15 GM TUBE TP SCH ×2 (12:32→22:40)
[2018-10-07] MEDS: MULTIVIT W/MINERALS 1 TAB TABLET PO SCH ×2 (12:33→13:00)
[2018-10-07 16:00] VITALS: BP 102/62
[2018-10-07] MEDS: FLUCONAZOLE (100 MG) 100 MG TABLET PO SCH (17:20)
--- NOTE | 2018-10-07 17:23 | NUR ---
RN MS NOTES PATIENT HAVING DIFFICULTY SWALLOWING MEDS TODAY EVEN CRUSHED. UNABLE TO MASK THE TASTE WITH FOOD.
--- NOTE | 2018-10-07 18:43 | NUR ---
RN MS NOTES PATIENT A/O X4 IN BED WITH CAREGIVER AT BEDSIDE THROUGHOUT THE DAY. A/O X4 WITH SOME FORGETFULNESS ANXIOUS D/T BED PLACEMENT AT PREVIOUS FACILITY ALEJANDRO RAMSEY HELPING FIND NEW RESIDENCE. NO SIGNS OR SYMPTOM OF RESPIRATORY DISTRESS ON 2 LTRS NASAL CANNULA OR ACUTE PAIN. APPETITE POOR D/T MOUTH SORES AND ABILITY TO ENJOY TASTE OF FOOD. 7X LOOSE WATERY STOOL R/T CHEMO ABLE TO MAKE NEEDS KNOWN AND ALL MET BY STAFF. SALINE LOCK TO L WRIST # 22 GAUGE. RCW PORT-A-CATH USED FOR CHEMO AND ABLE TO USE IF NEEDED. K+ LOW REPLACED WITH 20MeQ ORALLY.SAFETY PRECAUTION WELL REVERSE ISOLATION D/T WBC 1.7 ENFORCED BED IN LOW POSITION SR X3 ALL BELONGINGS IN REACH. KEPT CLEAN AND DRY CALL LIGHT WITHIN REACH.
--- NOTE | 2018-10-07 19:11 | NUR ---
RN CLOSING NOTES REPORT ENDORSED TO NOC
--- NOTE | 2018-10-07 20:15 | NUR ---
RN OPENING NOTES RECEIVED REPORT FROM SARAH OLMOS. PATIENT A/A/O X3, ABLE TO MAKE NEEDS KNOWN. BREATHING EVEN & UNLABORED, TOLERATING O2 @ 2LPM VIA NC, BREATHING TX IN PROGRESS. DENIES ANY SOB OR DIFFICULTY BREATHING. RADIAL PULSES PRESENT. LEFT FOREARM IV #20 INTACT & PATENT W/ DRESSING CDI, SALINE LOCKED. NO SWELLING NOTED ON RIGHT CHEST WALL PORT-A-CATH. DENIES ANY PAIN OR DISCOMFORT @ THIS TIME. SAFETY MEASURES IN PLACE W/ SIDE RAILS UP & BED ALARM ON. INSTRUCTED TO USE CALL LIGHT FOR ASSISTANCE. WILL CONTINUE TO MONITOR.
[2018-10-07 21:00] VITALS: BP 92/57
[2018-10-07] MEDS: ZOLPIDEM TARTRATE 5 MG TABLET PO PRN (22:42)
[2018-10-07] MEDS ORDERED: METRONIDAZOLE 500MG/ NS 100ML 500 MG in PREMIX 1 EA IV SCH (23:30)
[2018-10-08] MEDS ORDERED: METRONIDAZOLE 500MG/ NS 100ML 100 ML IV ONE (00:51)
[2018-10-08] MEDS: VANCOMYCIN HCL 125 MG/2.5 ML ORAL.SUSP PO SCH ×5 (02:27→23:02)
[2018-10-08] MEDS: ALBUTEROL FS 2.5 MG/3 ML VIAL.NEB NEB SCH ×6 (03:40→23:30)
[2018-10-08] MEDS: IPRATROPIUM NEB FS 0.5 MG/2.5 ML AMPUL.NEB NEB SCH ×6 (03:40→23:30)
[2018-10-08 05:00] VITALS: BP 100/66
[2018-10-08 06:31] LABS: CALCIUM, SERUM 8.4 mg/dL (8.5-10.1); CREATININE 0.3 mg/dL (0.6-1.3); POTASSIUM 3.4 mmol/L (3.5-5.1)
[2018-10-08] MEDS: BUDESONIDE RESPULE INH 0.25 MG/2 ML AMPUL.NEB NEB SCH ×2 (07:16→19:36)
--- NOTE | 2018-10-08 07:17 | NUR ---
RN MS OPENING NOTES PATIENT AWAKE RESTING IN BED. A/O X4 NO SIGNS OF DISTRESS OR DISCOMFORT. ON 2LPM O2 VIA NC. DENIES ANY PAIN AT THIS TIME. HAS RCW PORT-A-CATH AND IV IN LAC,# 22 PATENT AND INTACT, NO SIGNS OF REDNESS OR INFILTRATION ALL SAFETY PRECAUTIONS IN PLACE BED IN LOW LOCKED POSITION WITH SIDE RAILS X3. CALL LIGHT WITHIN REACH.
[2018-10-08] MEDS: SUCRALFATE 1 G/10 ML UDC PO SCH ×4 (07:31→22:15)
[2018-10-08] MEDS: NYSTATIN MM SCH ×4 (07:31→22:15)
[2018-10-08] MEDS: MAGNESIUM HYDROXIDE MM SCH ×4 (07:31→22:15)
[2018-10-08] MEDS: ALUMINUM HYDROXIDE MM SCH ×4 (07:31→22:15)
[2018-10-08] MEDS: LIDOCAINE MM SCH ×4 (07:31→22:15)
[2018-10-08] MEDS: SIMETHICONE MM SCH ×4 (07:31→22:15)
[2018-10-08] MEDS: PANTOPRAZOLE 40 MG TABLET.DR PO SCH (07:31)
[2018-10-08 08:00] VITALS: BP 101/60
[2018-10-08] MEDS: ACYCLOVIR 800 MG TABLET PO SCH ×2 (08:09→17:56)
[2018-10-08] MEDS: ACIDOPHILUS/BULGARICUS 1 EACH TAB.CHEW PO SCH (08:09)
[2018-10-08] MEDS: ASCORBIC ACID 500 MG TABLET PO SCH (08:09)
[2018-10-08] MEDS: ZINC SULFATE 220 MG CAPSULE PO SCH (08:10)
[2018-10-08] MEDS: ALLOPURINOL 100 MG TABLET PO SCH (08:11)
[2018-10-08] MEDS: POTASSIUM CHLORIDE 20 MEQ POWDER PACKET PO SCH (08:11)
[2018-10-08] MEDS: PROSOURCE / PROSTAT (PYXIS) 30 ML UDC PO SCH ×3 (08:11→17:57)
[2018-10-08] MEDS: METRONIDAZOLE 500MG/ NS 100ML 500 MG in PREMIX 1 EA IV SCH ×3 (08:31→21:30)
[2018-10-08] MEDS ORDERED: POTASSIUM CHLORIDE 20 MEQ TAB.PRT.SR PO SCH (10:00)
[2018-10-08] MEDS: ACETYLCYSTEINE 10% SOLN 400 MG/4 ML VIAL NEB SCH ×2 (10:49→15:31)
[2018-10-08] MEDS: APIXABAN 2.5 MG TABLET PO SCH ×2 (10:58→17:59)
[2018-10-08] MEDS: NYSTATIN/TRIAMCIN CREAM 15 GM TUBE TP SCH ×2 (10:59→23:03)
[2018-10-08] MEDS: MULTIVIT W/MINERALS 1 TAB TABLET PO SCH (12:17)
[2018-10-08 16:00] VITALS: BP 119/67
[2018-10-08] MEDS: FLUCONAZOLE (100 MG) 100 MG TABLET PO SCH (17:57)
--- NOTE | 2018-10-08 18:58 | NUR ---
RN MS NOTES PATIENT A/O X4 WITH SOME FORGETFULNESS NO SIGNS OR SYMPTOM OF RESPIRATORY DISTRESS ON 2 LTRS NASAL CANNULA OR ACUTE PAIN. APPETITE POOR D/T MOUTH SORES AND ABILITY TO ENJOY TASTE OF FOOD. ABLE TO MAKE NEEDS KNOWN AND ALL MET BY STAFF. TKO TO L WRIST # 22 GAUGE. RCW PORT-A-CATH USED FOR CHEMO AND ABLE TO USE IF NEEDED. K+ LOW REPLACED WITH 20MeQ ORALLY.SAFETY PRECAUTION WELL REVERSE ISOLATION D/T WBC 1.7 ENFORCED BED IN LOW POSITION SR X3 ALL BELONGINGS IN REACH. KEPT CLEAN AND DRY CALL LIGHT WITHIN REACH.
--- NOTE | 2018-10-08 19:15 | NUR ---
MS RN NOTE REPORT GIVEN BEDSIDE. PATIENT A/O X 3-4. PATIENT HAS NO C/O DISCOMFORT AT THIS TIME. PATIENT IN BED HOB HIGH ON 2L 02. NO C/O DISTRESS/ SOB// CHEST PAIN. PATIENT HAS LAC 22- SL PATENT INTACT. PATIENT HAS NO VOICED NEEDS AT THIS TIME. SAFETY PRECAUTIONS IN PLACE. RN WILL CONTINUE TO MONITOR.
--- NOTE | 2018-10-08 19:33 | NUR ---
RN MS CLOSING NOTES REPORT ENDORSED TO NOC SHIFT
[2018-10-08 20:00] VITALS: BP 106/67
[2018-10-08 21:00] VITALS: BP 106/67
[2018-10-08] MEDS: ZOLPIDEM TARTRATE 5 MG TABLET PO PRN (22:30)
[2018-10-09] MEDS: ALBUTEROL FS 2.5 MG/3 ML VIAL.NEB NEB SCH ×6 (02:50→23:18)
[2018-10-09] MEDS: IPRATROPIUM NEB FS 0.5 MG/2.5 ML AMPUL.NEB NEB SCH ×6 (02:50→23:18)
--- NOTE | 2018-10-09 03:15 | NUR ---
MS RN NOTE PATIENT REFUSED PRESCRIBED WOUND CARE TREATMENT ORDERED BY MD. PATIENT STATES SHE DOESN'T WANT GAUZE OR ADHESIVE ON HER BOTTOM. RN EXPLAINED THE GAUZE IS PETROLEUM BASED AND DESIGNED NOT TO STICK. PATIENT STILL REFUSED. PATIENT ALSO REFUSED DRESSINGS AND FOAM TAPE. SHE OBLIGED TO GENTLE CLEANSING, Z GAURD AROUND THE PERIWOUND AND NOTHING ELSE.
[2018-10-09 04:00] VITALS: BP 119/89
[2018-10-09] MEDS: METRONIDAZOLE 500MG/ NS 100ML 500 MG in PREMIX 1 EA IV SCH ×3 (04:59→21:09)
[2018-10-09 05:00] VITALS: BP 119/89
[2018-10-09] MEDS: VANCOMYCIN HCL 125 MG/2.5 ML ORAL.SUSP PO SCH ×3 (05:01→17:00)
[2018-10-09 06:27] LABS: BASOPHILS % (AUTO) 0.3 % (0.0-2.0); EOSINOPHILS % (AUTO) 0.4 % (0.0-6.0); HEMATOCRIT 27 % (33-45); HEMOGLOBIN 8.7 g/dL (11.5-14.8); LYMPHOCYTES # (AUTO) 0.1 /CMM (0.8-4.8); LYMPHOCYTES % (AUTO) 3.8 % (20.0-44.0); MEAN CORPUSCULAR HGB CONC 33 g/dl (31.0-36.0); MEAN CORPUSCULAR VOLUME 90 fL (82-100); MONOCYTES # (AUTO) 0.3 /CMM (0.1-1.30); MONOCYTES % (AUTO) 10.2 % (2.0-12.0); NEUTROPHILS # (AUTO) 2.9 /CMM (1.8-8.9); NEUTROPHILS % (AUTO) 85.3 % (43.0-81.0); PLATELET COUNT (AUTO) 265 /CMM (150-450); RED BLOOD CELL COUNT(AUTO) 2.96 MIL/uL (4.0-5.2); WHITE BLOOD COUNT (AUTO) 3.4 K/uL (4.3-11.0)
[2018-10-09 06:39] LABS: CALCIUM, SERUM 8.2 mg/dL (8.5-10.1); CREATININE 0.4 mg/dL (0.6-1.3); POTASSIUM 3.1 mmol/L (3.5-5.1)
--- NOTE | 2018-10-09 07:05 | NUR ---
MS RN OPENING NOTES RECEIVED PT LYING ON BED.ALERT/ORIENTED X3.ON 2 L O2 VIA NC CONTINUOUSLY.NO SOB AND ACUTE DISTRESS NOTED.RURAL ELECTRIFICATION ENGINEER IS AT BEDSIDE.IV LINE IS ON LEFT AC G22 AND RIGHT PORT-A-CATH.SITE IS CLEAN,DRY AND INTACT.NO INFILTRATION NOTED.BED IS IN LOW POSITION AND LOCKED.CALL LIGHT IS WITHIN REACH.WILL CONTINUE TO MONITOR THE PT AND FOLLOW UP WITH STOOL COLLECTION.
[2018-10-09] MEDS: PANTOPRAZOLE 40 MG TABLET.DR PO SCH (07:43)
[2018-10-09] MEDS: SUCRALFATE 1 G/10 ML UDC PO SCH ×4 (07:43→21:55)
[2018-10-09] MEDS: MAGNESIUM HYDROXIDE MM SCH ×4 (07:49→21:56)
[2018-10-09] MEDS: SIMETHICONE MM SCH ×4 (07:49→21:56)
[2018-10-09] MEDS: ALUMINUM HYDROXIDE MM SCH ×4 (07:49→21:56)
[2018-10-09] MEDS: LIDOCAINE MM SCH ×4 (07:49→21:56)
[2018-10-09] MEDS: NYSTATIN MM SCH ×4 (07:49→21:56)
[2018-10-09] MEDS: BUDESONIDE RESPULE INH 0.25 MG/2 ML AMPUL.NEB NEB SCH ×2 (07:52→19:54)
[2018-10-09 08:00] VITALS: BP 107/64
--- NOTE | 2018-10-09 08:00 | NUR ---
MS RN NOTES PT REFUSED TO CHECK VITAL SIGNS.OFFERED,EXPLAINED THE RISK AND BENEFITS X3,STILL REFUSED.
[2018-10-09] MEDS: ACETYLCYSTEINE 10% SOLN 400 MG/4 ML VIAL NEB SCH (08:07)
[2018-10-09] MEDS: POTASSIUM CHLORIDE 20 MEQ POWDER PACKET PO SCH (08:40)
[2018-10-09] MEDS: ACIDOPHILUS/BULGARICUS 1 EACH TAB.CHEW PO SCH (08:41)
[2018-10-09] MEDS: ASCORBIC ACID 500 MG TABLET PO SCH (08:41)
[2018-10-09] MEDS: ACYCLOVIR 800 MG TABLET PO SCH ×2 (08:41→16:44)
[2018-10-09] MEDS: PROSOURCE / PROSTAT (PYXIS) 30 ML UDC PO SCH ×3 (08:41→16:44)
[2018-10-09] MEDS: ALLOPURINOL 100 MG TABLET PO SCH (08:41)
[2018-10-09] MEDS: ZINC SULFATE 220 MG CAPSULE PO SCH (08:41)
[2018-10-09] MEDS: APIXABAN 2.5 MG TABLET PO SCH ×2 (08:49→17:44)
[2018-10-09] MEDS ORDERED: POTASSIUM CHLORIDE 20 MEQ POWDER PACKET PO SCH (10:30)
--- NOTE | 2018-10-09 11:13 | NUR ---
MS RN NOTES PT HAS PASSED 3RD TIMES STOOL,LOOKS LIKE THICK MUCOUS STOOL.NO WATERY AND SMELL.CLARIFIED WITH OKINFECTION DISEASE NURSE AND SHE KNEW ABOUT THE HISTORY OF CROHNS DISEASE. PER HER IF THE STOOL DOESN'T LOOK LIKE WATERY AND SMELL A C DIFF AND ALSO THE PT HAS H/O CROHNS DISEASE,DO NOT COLLECT THE STOOL AND SHOULD SAY THE ORDERING DOCTOR TO D/C THE ORDER AND ITS NOT THE POLICY OF THE HOSPITAL.
[2018-10-09] MEDS: NYSTATIN/TRIAMCIN CREAM 15 GM TUBE TP SCH ×2 (11:30→23:30)
[2018-10-09] MEDS ORDERED: VANC125C11 PO (11:31)
[2018-10-09] MEDS ORDERED: METR-147 PO (11:31)
[2018-10-09] MEDS ORDERED: FLUC100T8 PO (11:31)
[2018-10-09] MEDS ORDERED: ACYC800T PO (11:31)
[2018-10-09] MEDS: MULTIVIT W/MINERALS 1 TAB TABLET PO SCH (12:06)
[2018-10-09 16:00] VITALS: BP 96/59
[2018-10-09] MEDS: FLUCONAZOLE (100 MG) 100 MG TABLET PO SCH (17:00)
--- NOTE | 2018-10-09 17:55 | NUR ---
MS RN NOTES POLYMER TESTER ORDERED THE PT HAS THE HISTORY OF CROHN DISEASE,PLEASE DONT COLLECT THE STOOL FOR C DIFF,JUST DOCUMENT AND WILL GET THE ORDER FOR DISCONTINUE THE STOOL COLLECTION FOR C DIFF IN AM FROM THE ORDERING WILL ENDORSED THE UPCOMING NURSE REGARDING THE NEW ORDER.
--- NOTE | 2018-10-09 18:45 | NUR ---
MS RN CLOSING NOTES PT IS LYING ON BED.ALERT/ORIENTED X3.ON ROOM AIR.TOLERATING WELL.NO SOB AND ACUTE DISTRESS NOTED.IV LINE IS ON LEFT AC G22 AND RIGHT PORT A CATH IS IN PLACE,SITE IS CLEAN,DRY AND INTACT.NO INFILTRATION NOTED.ALL DUE MEDS ARE GIVEN.NO SIGNIFICANT CHANGES NOTED IN THE SHIFT.RESPIRATION IS EVEN AND NONLABORED.ENDORSED TO ARTIFICIAL STONE SETTER RN FOR VICTORIANO AND FOLLOW UP THE DISCHARGE PLAN.
[2018-10-09 20:00] VITALS: BP 104/62
--- NOTE | 2018-10-09 20:00 | NUR ---
RN NOTES RECEIVED PATIENT AWAKE IN BED, WEAK, DENIES ANY PAIN BUT WITH SLIGHT DISCOMFORT, NO SIGNS OF ACUTE RESPIRATORY DISTRESS NOTED, REPOSITIONED FOR COMFORT, IV ACCESS INTACT AND PATENT, ALL SAFETY MEASURES INPLACED, ASPIRATION PRECAUTION OBSERVED, WILL MONITOR ACCORDINGLY.
[2018-10-09 21:00] VITALS: BP 104/62
[2018-10-09] MEDS: ZOLPIDEM TARTRATE 5 MG TABLET PO PRN (21:56)
[2018-10-10] MEDS: VANCOMYCIN HCL 125 MG/2.5 ML ORAL.SUSP PO SCH ×4 (02:11→17:09)
[2018-10-10] MEDS: ALBUTEROL FS 2.5 MG/3 ML VIAL.NEB NEB SCH ×5 (03:43→19:30)
[2018-10-10] MEDS: IPRATROPIUM NEB FS 0.5 MG/2.5 ML AMPUL.NEB NEB SCH ×5 (03:43→19:30)
[2018-10-10 05:00] VITALS: BP 104/54
[2018-10-10] MEDS: METRONIDAZOLE 500MG/ NS 100ML 500 MG in PREMIX 1 EA IV SCH ×2 (05:39→12:04)
--- NOTE | 2018-10-10 06:53 | NUR ---
RN NOTES ALL NEEDS ATTENDED AND MET, DUE MEDS GIVEN TOLERATED WELL, DENIES ANY PAIN AT THIS TIME, WITH SLIGHT DISCOMFORT, REPOSITIONED, KEPT CLEAN DRY AND COMFORTABLE, WILL ENDORSE TO AM NURSE FOR CONTINUITY OF CARE.
[2018-10-10 06:57] LABS: CALCIUM, SERUM 8.2 mg/dL (8.5-10.1); CREATININE 0.3 mg/dL (0.6-1.3); POTASSIUM 3.5 mmol/L (3.5-5.1)
--- NOTE | 2018-10-10 07:00 | NUR ---
RN AM SHIFT NOTE PATIENT IN BED ARERT AND ORITNED X3. NEUTROPENIC PRECAUTIONS IN PLACE, FALL PRECAUTIONS IN PLACE, BED IN LOW POSITION, CALL LIGHT WITHIN REACH. SOFT DIET ENFORCED, LEFT AC SITE PATENT AND INTACT. PATIENT IS SLIGHTLY AGITATED DUE TO HOSPITAL STAY. THERE ARE NO CURRENT ORDERS FOR PLACEMENT OR DISCHARGE FOR THE PATIENT. CONT TO MONITOR
[2018-10-10] MEDS: BUDESONIDE RESPULE INH 0.25 MG/2 ML AMPUL.NEB NEB SCH ×2 (07:30→19:30)
--- NOTE | 2018-10-10 07:35 | NUR ---
RT PT AWAKE AND ALERT. BREATHING TX NOT GIVEN AT THE TIME DUE TO PT WANTING TO EAT BREAKFAST FIRST. WILL COME BACK.
[2018-10-10 08:00] VITALS: BP 90/60
[2018-10-10] MEDS: ACIDOPHILUS/BULGARICUS 1 EACH TAB.CHEW PO SCH (08:00)
[2018-10-10] MEDS: SUCRALFATE 1 G/10 ML UDC PO SCH ×3 (08:00→16:30)
[2018-10-10] MEDS: ASCORBIC ACID 500 MG TABLET PO SCH (08:00)
[2018-10-10] MEDS: ACYCLOVIR 800 MG TABLET PO SCH ×2 (08:00→16:26)
[2018-10-10] MEDS: ALLOPURINOL 100 MG TABLET PO SCH (08:00)
[2018-10-10] MEDS: PANTOPRAZOLE 40 MG TABLET.DR PO SCH (08:00)
[2018-10-10] MEDS: POTASSIUM CHLORIDE 20 MEQ POWDER PACKET PO SCH (08:02)
[2018-10-10] MEDS: PROSOURCE / PROSTAT (PYXIS) 30 ML UDC PO SCH ×4 (08:08→16:17)
[2018-10-10] MEDS: NYSTATIN MM SCH ×3 (08:09→16:30)
[2018-10-10] MEDS: MAGNESIUM HYDROXIDE MM SCH ×3 (08:09→16:30)
[2018-10-10] MEDS: ALUMINUM HYDROXIDE MM SCH ×3 (08:09→16:30)
[2018-10-10] MEDS: SIMETHICONE MM SCH ×3 (08:09→16:30)
[2018-10-10] MEDS: ZINC SULFATE 220 MG CAPSULE PO SCH (08:09)
[2018-10-10] MEDS: LIDOCAINE MM SCH ×3 (08:09→16:30)
--- NOTE | 2018-10-10 08:25 | NUR ---
RT WENT BACK TO ADMINISTER TX. PT REFUSING DUE TO STILL EATING BREAKFAST. PT STATED TO COME BACK.
[2018-10-10] MEDS: APIXABAN 2.5 MG TABLET PO SCH ×2 (08:53→16:25)
[2018-10-10] MEDS: POTASSIUM CHLORIDE 20 MEQ TAB.PRT.SR PO SCH ×4 (08:59→11:48)
[2018-10-10] MEDS: ACETYLCYSTEINE 10% SOLN 400 MG/4 ML VIAL NEB SCH ×2 (09:00→17:24)
--- NOTE | 2018-10-10 09:00 | NUR ---
RT WENT TO ROOM TO ASK PATIENT TO GIVE HER BREATHING TX. PT REFUSING AND TO COME BACK AGAIN.
[2018-10-10] MEDS: NYSTATIN/TRIAMCIN CREAM 15 GM TUBE TP SCH (11:07)
--- NOTE | 2018-10-10 11:30 | NUR ---
RN NOTES RECEIVED ON BED, A/Ox4 , ON RA , RESPIRATION EVEN AND UNLABORED, NO DISTRESS NOTED, SUPPORTIVE FAMILY AT THE BEDSIDE, L ARM IV SITE , CLEAN, DRY AND INTACT, CONTINUE TO MONITOR .
[2018-10-10] MEDS: MULTIVIT W/MINERALS 1 TAB TABLET PO SCH ×2 (12:04→12:24)
[2018-10-10] MEDS ORDERED: POTASSIUM CHLORIDE 20 MEQ POWDER PACKET GT ONE (12:30)
[2018-10-10 15:43] VITALS: BP 89/57
[2018-10-10 16:00] VITALS: BP 89/57
--- NOTE | 2018-10-10 17:00 | NUR ---
RN NOTES DR GARCIA NOTIFED REGARDING BP 89/57, NO NEW ORDER GIVEN , PT STABLE , NO DISTRESS NOTED.
[2018-10-10] MEDS: FLUCONAZOLE (100 MG) 100 MG TABLET PO SCH (17:09)
--- NOTE | 2018-10-10 18:00 | NUR ---
RN NOTES REPORT GIVEN TO TOMASA EDUARDO FOR CONTINUITY OF CARE .
--- NOTE | 2018-10-10 18:55 | NUR ---
RN NOTES NO DISTRESS NOTED , WILL ENDOSE TO SOFTWARE SUPPORT TECHNICIAN NURSE FOR CONTINUITY OF CARE .
--- NOTE | 2018-10-10 19:15 | NUR ---
MS RN NOTE REPORT GIVEN BEDSIDE. RECEIVED PATIENT IN BED A/O X 3-4. PATIENT DIAPER BEING CHANGED. NO S/S OF DISTRESS. PATIENT STABLE NO S/S/ OF ACUTE DISTRESS. D/C PLANS DISCUSSED WITH PATIENT.
--- NOTE | 2018-10-10 19:45 | NUR ---
MS RN NOTE PATIENT REFUSED D/C PHOTOS OF WOUNDS STATING, "YOU HAVE HUNDREDS OF PHOTS OF ME" RN EXPLAINED ITS FOR PROGRESS DOCUMENTATION. PATIENT STILL REFUSED SAYING, "I KNOW YOU GUYS ARE JUST DOING IT TO MAKE SURE YOU DON'T GET SUED." RN REPLIED, WE JUST WANT TO MAKE SURE THAT ITS HEALING. PATIENT STILL REFUSED. BOILER FIREMAN MARILYN AWARE.
--- NOTE | 2018-10-10 20:24 | NUR ---
MS RN NOTE AMBULANZ ARRIVED. REPORT GIVEN TO EMT. PATIENT STABLE NO S/S OF DISTRESS. ALL BELONGINGS TRANSFERRED WITH PATIENT. TRANSFER OF CARE GIVEN OVER TO TRANSPORT. PATIENT TRANSFERRED OUT OF UNIT.
== END 2018-10-10 20:30 | DRG 808 ==
LOC: ER 23:05 → TELE1 10-04 00:27 → MEDSG1 10-05 01:03
PROVIDERS: ADMIT Nurse Practitioner Acute Care; ATTEND Nurse Practitioner Acute Care
PROC: 30233N1 Transfusion of Nonautologous Red Blood Cells into Peripheral Vein, Percutaneous Approach (ICD-10-PCS; principal; 2018-10-06)
DX: D61.810 Antineoplastic chemotherapy induced pancytopenia (principal); E43 Unspecified severe protein-calorie malnutrition; C85.10 Unspecified B-cell lymphoma, unspecified site; K50.90 Crohn's disease, unspecified, without complications; E87.1 Hypo-osmolality and hyponatremia; I50.22 Chronic systolic (congestive) heart failure; B37.0 Candidal stomatitis; Z68.1 Body mass index [BMI] 19.9 or less, adult; R64 Cachexia; T45.1X5A Adverse effect of antineoplastic and immunosuppressive drugs, initial encounter; E87.6 Hypokalemia; E83.42 Hypomagnesemia; E83.39 Other disorders of phosphorus metabolism; J44.9 Chronic obstructive pulmonary disease, unspecified; E86.1 Hypovolemia; F41.9 Anxiety disorder, unspecified; E88.09 Other disorders of plasma-protein metabolism, not elsewhere classified; Z86.14 Personal history of Methicillin resistant Staphylococcus aureus infection; M62.50 Muscle wasting and atrophy, not elsewhere classified, unspecified site; L30.4 Erythema intertrigo; S31.000A Unspecified open wound of lower back and pelvis without penetration into retroperitoneum, initial encounter; S31.829A Unspecified open wound of left buttock, initial encounter; S31.819A Unspecified open wound of right buttock, initial encounter; X58.XXXA Exposure to other specified factors, initial encounter; Y93.9 Activity, unspecified; Y92.129 Unspecified place in nursing home as the place of occurrence of the external cause; D64.9 Anemia, unspecified
CPT/HCPCS: 36415; 70220-TC; 71045-TC; 80048-TC; 80053-TC; 83605-TC; 83735-TC; 84100-TC; 85025-TC; 86850-TC; 86921-TC; 87040-TC; 87081-TC; 92611-TC; 94799-TC; A4216; A6253; A6402; A6403; G0378; J3475; J3480; J3490; J7040; J7050; P9016-BL

== ENCOUNTER 2018-10-17 10:03 | Emergency (ER) | payer MEDICARE, BC ==
[~2018-10-17] VITALS: Ht 167.6 cm; Wt 42.6 kg
[~2018-10-17 10:03] MED LIST changes: +ACYC800T PO; -AZIT250T PO; -DOXY100T2 PO; +FLUC100T8 PO; +METR-147 PO; +VANC125C11 PO
--- NOTE | 2018-10-17 10:15 | NUR ---
PT SENT [facility]M ONCO MD OFFICE FOR HYPOCALEMIA AND TACHYCARDIA, PT IS AAOX4, NOT IN RESPIRATORY DISTRESS, HOOKED TO MONITOR, KEPT RESTED AND COMFORTABLE, WILL CONTINUE TO MONITOR.
--- NOTE | 2018-10-17 10:20 | NUR ---
PT IV LINE ESTABLISHED, LABS DRAWNED AND SENT TO LAB.
--- NOTE | 2018-10-17 10:24 | NUR ---
URINAL GIVEN BUT UNABLE TO PROVIDE URINE SPECIMEN.
[2018-10-17] MEDS ORDERED: ACETAMINOPHEN ES 500 MG TABLET PO ONE (10:30)
[2018-10-17] MEDS ORDERED: ONDANSETRON HCL/PF 4 MG/2 ML VIAL IVP ONE (10:30)
[2018-10-17] MEDS ORDERED: IV NS 0.9% 1,000 ML BAG IV ONE (10:30)
[2018-10-17 10:31] LABS: BASOPHILS % (AUTO) 0.4 % (0.0-2.0); EOSINOPHILS % (AUTO) 0.3 % (0.0-6.0); HEMATOCRIT 39 % (33-45); LYMPHOCYTES # (AUTO) 0.6 /CMM (0.8-4.8); LYMPHOCYTES % (AUTO) 9.1 % (20.0-44.0); MEAN CORPUSCULAR HGB CONC 33 g/dl (31.0-36.0); MEAN CORPUSCULAR VOLUME 91 fL (82-100); MONOCYTES # (AUTO) 0.7 /CMM (0.1-1.30); MONOCYTES % (AUTO) 10.4 % (2.0-12.0); NEUTROPHILS # (AUTO) 5.4 /CMM (1.8-8.9); NEUTROPHILS % (AUTO) 79.8 % (43.0-81.0); PLATELET COUNT (AUTO) 618 /CMM (150-450); RED BLOOD CELL COUNT(AUTO) 4.31 MIL/uL (4.0-5.2); WHITE BLOOD COUNT (AUTO) 6.7 K/uL (4.3-11.0)
[2018-10-17] MEDS ORDERED: ONDANSETRON HCL/PF 4 MG/2 ML VIAL ONE (10:35)
[2018-10-17] MEDS ORDERED: ACETAMINOPHEN ES 500 MG TABLET ONE (10:36)
[2018-10-17 10:41] LABS: CALCIUM, SERUM 8.7 mg/dL (8.5-10.1); CREATININE 0.4 mg/dL (0.6-1.3); POTASSIUM 3.4 mmol/L (3.5-5.1)
--- NOTE | 2018-10-17 10:44 | NUR ---
BUSINESS PLANNER AT BEDSIDE FOR XRAY.
[2018-10-17 10:47] LABS: ALBUMIN 2.6 g/dL (3.4-5.0); BILIRUBIN,DIRECT 0.1 mg/dL (0.0-0.2); BILIRUBIN,TOTAL 0.4 mg/dL (0.2-1.0); TOTAL PROTEIN, SERUM 6.1 g/dL (6.4-8.2)
[2018-10-17] MEDS ORDERED: POTASSIUM CHLORIDE 20 MEQ TAB.PRT.SR PO ONE (11:00)
[2018-10-17] MEDS ORDERED: Magnesium 1 GM/2 ML VIAL IV ONE (11:00)
[2018-10-17] MEDS ORDERED: POTASSIUM CL. PREMIX PERIPHER. 50 ML IV SCH (11:00)
[2018-10-17] MEDS ORDERED: Magnesium 1GM/D5W 100ML PREMIX 200 ML IV ONE (11:10)
[2018-10-17] MEDS ORDERED: POTASSIUM CL. PREMIX PERIPHER. 100 ML ONE (11:11)
--- NOTE | 2018-10-17 14:01 | NUR ---
IV removed. Catheter intact and site benign. Pressure and 4x4 applied to site. No bleeding noted. Patient discharged to care facility in stable condition. Written and verbal after care instructions given. Patient verbalizes understanding of instruction. Awaiting ambulance for transfer back.
[2018-10-17 15:27] VITALS: BP 101/52
== END 2018-10-17 15:32 | disposition home or self-care (01) ==
LOC: ER 10:05
DX: E87.6 Hypokalemia (principal); E83.42 Hypomagnesemia; I50.9 Heart failure, unspecified; D64.9 Anemia, unspecified; Z90.89 Acquired absence of other organs; Z88.8 Allergy status to other drugs, medicaments and biological substances; Z60.2 Problems related to living alone; Z79.899 Other long term (current) drug therapy; Z85.72 Personal history of non-Hodgkin lymphomas
CPT/HCPCS: 36415; 71045; 80048; 80076; 83605; 83690; 83735; 84484; 85025; 87040 ×2; 96365; 96366; 96368; 96375; 99284; J2405; J3475; J3480; J7030

== ENCOUNTER 2018-11-06 10:27 | Inpatient (IN) | payer MEDICARE, BC ==
[~2018-11-06] VITALS: Ht 167.6 cm; Wt 42.6 kg
[2018-11-06] VITALS (42 sets, daily range): BP systolic 61–106; BP diastolic 39–66
[2018-11-06] MEDS ORDERED: ACYC400T PO (10:45)
[2018-11-06] MEDS ORDERED: APIX2.5T PO (10:45)
--- NOTE | 2018-11-06 10:45 | NUR ---
patient presented to the ER from Oncologist clinic due to hypotension, on room air, breathing evenly and unlabored. connected to the monitor and pulse ox. Kept comfortable, will continue to monitor accordingly.
[2018-11-06] MEDS ORDERED: BUDE0.253 IH (10:48)
[2018-11-06] MEDS ORDERED: DIPH1TAB PO (10:48)
[2018-11-06] MEDS ORDERED: IV NS 0.9% 1,000 ML BAG IV ONE ×2 (11:00→11:30)
[2018-11-06 11:01] LABS: BASOPHILS # (AUTO) 0.2 /CMM (0.0-0.2); BASOPHILS % (AUTO) 0.9 % (0.0-2.0); HEMATOCRIT 32 % (33-45); HEMOGLOBIN 10.3 g/dL (11.5-14.8); LYMPHOCYTES # (AUTO) 0.4 /CMM (0.8-4.8); LYMPHOCYTES % (AUTO) 1.6 % (20.0-44.0); MEAN CORPUSCULAR HGB CONC 32 g/dl (31.0-36.0); MEAN CORPUSCULAR VOLUME 94 fL (82-100); MONOCYTES # (AUTO) 1.7 /CMM (0.1-1.30); MONOCYTES % (AUTO) 7.6 % (2.0-12.0); NEUTROPHILS # (AUTO) 20.6 /CMM (1.8-8.9); NEUTROPHILS % (AUTO) 89.9 % (43.0-81.0); PLATELET COUNT (AUTO) 610 /CMM (150-450); RED BLOOD CELL COUNT(AUTO) 3.42 MIL/uL (4.0-5.2); WHITE BLOOD COUNT (AUTO) 22.9 K/uL (4.3-11.0)
[2018-11-06] MEDS ORDERED: MUPI22OI2 TP (11:03)
[2018-11-06] MEDS ORDERED: SUCR1TAB PO (11:03)
[2018-11-06] MEDS ORDERED: NYST30OI2 TP (11:03)
[2018-11-06] MEDS ORDERED: HYDR-3974 PO (11:03)
[2018-11-06] MEDS ORDERED: CODE118S4 PO (11:03)
[2018-11-06] MEDS ORDERED: CHOL4PAC9 PO (11:03)
[2018-11-06] MEDS ORDERED: MAG355OR18 PO (11:03)
[2018-11-06] MEDS ORDERED: ZOLP10TA6 PO (11:03)
[2018-11-06] MEDS ORDERED: BALS60OI TP (11:03)
[2018-11-06 11:09] LABS: CALCIUM, SERUM 7.8 mg/dL (8.5-10.1); CREATININE 0.4 mg/dL (0.6-1.3); POTASSIUM 3.1 mmol/L (3.5-5.1)
[2018-11-06] MEDS ORDERED: VANCOMYCIN 1 GM in IV D5W 250 ML IV ONE (11:30)
[2018-11-06] MEDS ORDERED: PIPERACILLIN /TAZOBACTAM 3.375 G in IV D5W 50 ML IV ONE (11:30)
--- NOTE | 2018-11-06 11:43 | NUR ---
SOHEILA PAGESundeep, EQUIPMENT TESTER.
--- NOTE | 2018-11-06 11:45 | NUR ---
urine collected and sent to lab.
--- NOTE | 2018-11-06 11:51 | NUR ---
CALLED NURSING SUP. FOR ICU BED
[2018-11-06 11:52] LABS: APPEARANCE,URINE Clear (CLEAR); BILIRUBIN,URINE Negative (NEGATIVE); BLOOD, URINE Negative Ery/uL (NEGATIVE); COLOR,URINE Yellow (YELLOW); KETONES,URINE Negative (NEGATIVE); LEUKOCYTE ESTERASE ,URINE Negative (NEGATIVE); NITRITE, URINE Negative (NEGATIVE); PH,URINE 6.5 (5.0-8.0); PROTEIN,URINE 100 mg/dl (NEGATIVE); UGLUCOSE Negative (NEGATIVE); UROBILINOGEN,URINE 0.2 EU/dL (0.2)
[2018-11-06 11:57] LABS: BACTERIA,URINE Few /HPF (None Seen); HYALINE CASTS, URINE 0-2 /LPF (None Seen); SQUAMOUS EPITHELIAL CELL,UR Moderate /HPF (None Seen)
--- NOTE | 2018-11-06 12:05 | NUR ---
ICU 258
[2018-11-06] MEDS ORDERED: Z GUARD REMEDY 2 OZ OINT TP PRN (12:30)
[2018-11-06] MEDS ORDERED: MAGNESIUM HYDROXIDE 30 ML UDC PO PRN (12:30)
[2018-11-06] MEDS ORDERED: MAG HYDROX/AL HYDROX/SIMETH 30 ML UDC PO PRN (12:30)
[2018-11-06] MEDS ORDERED: ONDANSETRON HCL/PF 4 MG/2 ML VIAL IVP PRN (12:30)
[2018-11-06] MEDS ORDERED: ACETAMINOPHEN 325 MG TABLET PO PRN ×2 (12:30)
[2018-11-06] MEDS ORDERED: ZOLPIDEM TARTRATE 5 MG TABLET PO PRN (12:30)
[2018-11-06] MEDS ORDERED: BUDESONIDE RESPULE INH 0.25 MG/2 ML AMPUL.NEB IH PRN (12:30)
[2018-11-06] MEDS ORDERED: HYDROCODONE/APAP 5/325MG 1 EACH TABLET PO PRN (12:30)
[2018-11-06] MEDS ORDERED: IV NS 0.9% 1,000 ML IV SCH (12:30)
--- NOTE | 2018-11-06 12:45 | NUR ---
called ICU and spoke to Isael OLMOS, report given and for VICTORIANO.
--- NOTE | 2018-11-06 12:50 | NUR ---
REPORT GIVEN TO NICKOLAS MORLEY FOR VICTORIANO.
--- NOTE | 2018-11-06 13:20 | NUR ---
NOTIFIED DR AVALOS PATIENT SBP 60'S MAP IN THE 50'S. PER MD INCREASE NS IVF TO 150/HOUR AND GOAL BP MAP 60 OR ABOVE. OK TO START LEVOPHED IF NECESSARY FOR MAP GOAL 60 OR ABOVE.
[2018-11-06] MEDS: PROSOURCE / PROSTAT (PYXIS) 30 ML UDC PO SCH ×3 (13:30→16:21)
[2018-11-06] MEDS ORDERED: D-METHORPHAN HB/PROMETH HCL 5 ML UDC PO PRN (13:30)
[2018-11-06] MEDS ORDERED: NOREPINEPHRINE 16 MG in IV D5W 500 ML IV PRN (13:30)
--- NOTE | 2018-11-06 13:33 | NUR ---
patient wheeled via gurney accompanied by rn and emt in no apparent distress noted.
[2018-11-06] MEDS: POTASSIUM CHLORIDE 10 MEQ TABLET.SA PO SCH (13:36)
[2018-11-06] MEDS: ACYCLOVIR 200 MG CAPSULE PO SCH ×2 (13:36→16:41)
--- NOTE | 2018-11-06 13:45 | NUR ---
GREEN PRIZE PACKER ADMITTING NOTES: Rec'd pt from ER, transported via gurney. Pt is A/O x 4. No SOB while on room air. Placed on telemonitor, SR. Has RCW portacath, SL, flushing well, w/ no s/sx of infection/infiltration noted. Noted skin issues, photos taken & placed in the chart - wound care consult & KCI mattress ordered. BP noted to be on the low side, called Dr. Back c/o Isael RN w/ orders made & carried out. Pt oriented to room. Isolation precaution initiated d/t poss C.diff (per report), pt & family educated. Safety precaution kept in place at all times w/ bed in lowest & locked pos. Call light placed w/in reach. Will cont to monitor & attend pt needs.
[2018-11-06] MEDS: IV NS 0.9% 1,000 ML IV PRN ×2 (14:26→21:23)
[2018-11-06] MEDS: CHOLESTYRAMINE/ASPARTAME 4 G/PKT PACKET PO SCH (16:54)
[2018-11-06] MEDS: VANCOMYCIN HCL 125 MG/2.5 ML ORAL.SUSP PO SCH ×2 (17:13→23:26)
[2018-11-06] MEDS: SUCRALFATE 1 G/10 ML UDC PO SCH ×2 (17:13→21:25)
[2018-11-06] MEDS: METRONIDAZOLE 500MG/ NS 100ML 500 MG in PREMIX 1 EA IV SCH ×2 (17:13→23:26)
[2018-11-06] MEDS: PROMETHAZINE HCL SYRUP 6.25 MG/5 ML UDC PO PRN (17:14)
[2018-11-06] MEDS: APIXABAN 2.5 MG TABLET PO SCH (17:18)
[2018-11-06] MEDS ORDERED: SUCRALFATE 1 G TABLET PO SCH (17:30)
--- NOTE | 2018-11-06 18:24 | NUR ---
RN CLOSING NOTES: No significant changes noted w/in shift. Pt remains A/O x 3. No respiratory distress w/in shift. IV line access on RCW portacath kept patent & intact w/ NS x 150 cc/hr infusing well. Stool sent for C.diff. BP monitored closely, MAP kept at >60. Safety precaution kept in place at all times w/ bed in lowest & locked pos. Call light placed w/in reach. Will endorse to PM RN for VICTORIANO.
[2018-11-06] MEDS: MUPIROCIN OINT 2% 22 GM TUBE TP SCH (21:25)
[2018-11-06] MEDS: ALBUTEROL FS 2.5 MG/0.5 ML VIAL.NEB NEB SCH (23:06)
[2018-11-07] VITALS (31 sets, daily range): BP systolic 74–117; BP diastolic 33–73
[2018-11-07] MEDS: HYDROCODONE/APAP 5/325MG 1 EACH TABLET PO PRN ×2 (01:58→15:03)
[2018-11-07] MEDS: ALBUTEROL FS 2.5 MG/0.5 ML VIAL.NEB NEB SCH ×6 (03:18→23:30)
[2018-11-07 04:38] LABS: CALCIUM, SERUM 7.3 mg/dL (8.5-10.1); CREATININE 0.4 mg/dL (0.6-1.3); PHOSPHORUS 2.9 mg/dL (2.5-4.9)
[2018-11-07 04:44] LABS: MAGNESIUM 1.2 mg/dL (1.8-2.4); POTASSIUM 2.5 mmol/L (3.5-5.1)
[2018-11-07 04:45] LABS: BASOPHILS # (AUTO) 0.1 /CMM (0.0-0.2); BASOPHILS % (AUTO) 0.9 % (0.0-2.0); EOSINOPHILS % (AUTO) 0.2 % (0.0-6.0); HEMATOCRIT 23 % (33-45); HEMOGLOBIN 7.8 g/dL (11.5-14.8); LYMPHOCYTES # (AUTO) 0.4 /CMM (0.8-4.8); MEAN CORPUSCULAR HGB CONC 34 g/dl (31.0-36.0); MEAN CORPUSCULAR VOLUME 93 fL (82-100); MONOCYTES % (AUTO) 13.9 % (2.0-12.0); NEUTROPHILS # (AUTO) 5.8 /CMM (1.8-8.9); PLATELET COUNT (AUTO) 421 /CMM (150-450); RED BLOOD CELL COUNT(AUTO) 2.49 MIL/uL (4.0-5.2); WHITE BLOOD COUNT (AUTO) 7.3 K/uL (4.3-11.0)
[2018-11-07] MEDS: Magnesium 1GM/D5W 100ML PREMIX 100 ML IV SCH ×4 (05:27→10:19)
[2018-11-07] MEDS: POTASSIUM CL. PREMIX PERIPHER. 50 ML IV SCH ×3 (05:27→08:13)
[2018-11-07] MEDS: VANCOMYCIN HCL 125 MG/2.5 ML ORAL.SUSP PO SCH ×4 (06:01→23:10)
[2018-11-07] MEDS: METRONIDAZOLE 500MG/ NS 100ML 500 MG in PREMIX 1 EA IV SCH ×4 (06:01→23:10)
[2018-11-07] MEDS: IV NS 0.9% 1,000 ML IV PRN ×3 (06:02→21:20)
--- NOTE | 2018-11-07 07:00 | NUR ---
RN NOTES RECEIVED PT ON BED, A/OX4, ON RA , RESPIRATION EVEN AND UNLABORED, NO SOB NOTED, ON TELE SR HR IN 80'S , R UPPER CHEST PORT-A-CATH SITE CLEAN , DRY AND INTACT, WITH NS AT 150CC/HR RUNNING , VSS STABLE, SR UP x3, CALL LIGHT WITHIN EASY REACH, BED LOCKED AND IN LOWEST POSITION, CONTINUE TO MONITOR .
[2018-11-07] MEDS: CHOLESTYRAMINE/ASPARTAME 4 G/PKT PACKET PO SCH ×3 (08:06→17:00)
[2018-11-07] MEDS: MULTIVIT W/MINERALS 1 TAB TABLET PO SCH (08:06)
[2018-11-07] MEDS: SUCRALFATE 1 G/10 ML UDC PO SCH ×4 (08:07→21:19)
[2018-11-07] MEDS: ACETAMINOPHEN 325 MG TABLET PO SCH ×2 (08:07→08:24)
[2018-11-07] MEDS: ACIDOPHILUS/BULGARICUS 1 EACH TAB.CHEW PO SCH (08:07)
[2018-11-07] MEDS: ALLOPURINOL 100 MG TABLET PO SCH ×2 (08:07→08:24)
[2018-11-07] MEDS: PANTOPRAZOLE 40 MG TABLET.DR PO SCH (08:07)
[2018-11-07] MEDS: ASCORBIC ACID 500 MG TABLET PO SCH (08:07)
[2018-11-07] MEDS: ACYCLOVIR 200 MG CAPSULE PO SCH ×2 (08:07→17:10)
[2018-11-07] MEDS: POTASSIUM CHLORIDE 10 MEQ TABLET.SA PO SCH (08:07)
[2018-11-07] MEDS: PROSOURCE / PROSTAT (PYXIS) 30 ML UDC PO SCH ×4 (08:11→17:00)
[2018-11-07] MEDS: MUPIROCIN OINT 2% 22 GM TUBE TP SCH ×2 (08:31→23:10)
[2018-11-07] MEDS ORDERED: POTASSIUM CHLORIDE 20 MEQ TAB.PRT.SR PO SCH (09:00)
[2018-11-07] MEDS: APIXABAN 2.5 MG TABLET PO SCH ×2 (09:19→17:07)
[2018-11-07] MEDS: POTASSIUM CHLORIDE 20 MEQ POWDER PACKET GT SCH ×3 (09:22→12:07)
[2018-11-07] MEDS: OLANZAPINE 5 MG TABLET PO SCH (09:24)
[2018-11-07] MEDS: PROMETHAZINE HCL SYRUP 6.25 MG/5 ML UDC PO PRN (12:16)
--- NOTE | 2018-11-07 13:00 | NUR ---
RN NOTES DR WILLARD AND DR BARBA NOTIFED REGARDING CORTISOL LEVEL 9.9, NEW ORDER RECEIVED.
[2018-11-07] MEDS: HYDROCORTISONE SOD SUCCINATE 100 MG/2 ML VIAL IV SCH ×2 (13:11→17:10)
--- NOTE | 2018-11-07 13:50 | NUR ---
RN NOTES REPORT GIVEN TO ALVA OLMOS , PT TRANSFERRED TO ROOM [facility], IN STABLE CONDITION PER MD ORDER .
--- NOTE | 2018-11-07 14:00 | NUR ---
RN NOTE PT WAS BROUGHT UP AT THIS TIME IN STABLE CONDITION, A/OX4, BREATHING EVEN AND UNLABORED ON RA, RCW PORT A CATH IS PATENT AN INTACT, SAFETY PRECAUTIONS IN PLACE, CALL LIGHT WITHIN REACH, WILL MONITOR ACCORDINGLY.
--- NOTE | 2018-11-07 14:43 | NUR ---
RN NOTE PT INFORMED THAT AIR MATTRESS NEEDED TO BE PUT UNDER HER IN ORDER TO PREVENT THE DEVELOPMENT OR FURTHER WORSENING OF ANY PRESSURE ULCERS AT THIS TIME. ME ALONG WITH SACHA ROCKWELL PLACED AIR MATTRESS UNDER THE PATIENT WITHOUT ISSUE AND WITH EXTREME CARE BUT PT COMPLAINS IT WAS BAD AND HURT HER AND THAT WE SHOULD NOT HAVE DONE IT EVEN THOUGH SHE CONSENTED TO IT BEFORE WE PUT IT ON. SHE WAS INFORMED OF ITS PURPOSE AND EDUCATED BEFOREHAND AND EXTREME CARE WAS TAKEN TO ENSURE NO PAIN OR INJURY OCCURRED WHICH DID NOT. WILL MONITOR PT ACCORDINGLY.
--- NOTE | 2018-11-07 18:21 | NUR ---
RN CLOSING NOTE PT WAS RECEIVED IN BED AT LOWEST AND LOCKED POSITION WITH SIDE RAILS X2, A/O X4 BREATHING EVEN AND UNLABORED ON RA, NO S/S OF ANY DISTRESS OR PAIN NOTED AT THIS TIME, IV IS PATENT AND INTACT, SAFETY PRECAUTIONS IN PLACE, CALL LIGHT WITHIN REACH, ALL NEEDS ATTENDED TO, WILL ENDORSE TO BOILERMAKER'S ASSISTANT RN FOR VICTORIANO.
--- NOTE | 2018-11-07 19:20 | NUR ---
RN PM OPENING NOTE BEDSIDE REPORT RECEIVED FROM ANN OLMOS. BED AT LOWEST AND LOCKED POSITION WITH SIDE RAILS X2, PER REPORT PT A/O X4 SEEN WITH EYES CLOSED AND ALLOWED TO REST. BREATHING EVEN AND UNLABORED ON RA, NO S/S OF ANY DISTRESS OR PAIN NOTED AT THIS TIME, IV IS PATENT AND INTACT, SAFETY PRECAUTIONS IN PLACE, CALL LIGHT WITHIN REACH, ON ISOLATION CONTACT FOR POSSIBLE CDIFF.
[2018-11-07] MEDS ORDERED: DIPHENOXYLATE HCL/ATROP SULF 5 ML UDC PO PRN (20:00)
[2018-11-07] MEDS ORDERED: DIPHENOXYLATE HCL/ATROP SULF 1 UDTAB TABLET PO PRN (20:30)
[2018-11-07] MEDS ORDERED: MUPIROCIN OINT 2% 22 GM TUBE ONE (22:33)
[2018-11-08] MEDS: ALBUTEROL FS 2.5 MG/0.5 ML VIAL.NEB NEB SCH ×6 (03:30→23:30)
[2018-11-08] MEDS: IV NS 0.9% 1,000 ML IV PRN ×2 (04:25→17:19)
[2018-11-08] MEDS: METRONIDAZOLE 500MG/ NS 100ML 500 MG in PREMIX 1 EA IV SCH ×4 (05:09→23:11)
[2018-11-08] MEDS: VANCOMYCIN HCL 125 MG/2.5 ML ORAL.SUSP PO SCH ×4 (05:10→23:11)
--- NOTE | 2018-11-08 06:30 | NUR ---
RN pm CLOSING NOTE PT IN BED AT LOWEST AND LOCKED POSITION WITH SIDE RAILS X2, A/O X4 BREATHING EVEN AND UNLABORED ON RA, NO S/S OF ANY DISTRESS OR PAIN NOTED AT THIS TIME, IV IS PATENT AND INTACT, SAFETY PRECAUTIONS IN PLACE, CALL LIGHT WITHIN REACH, ALL NEEDS ATTENDED TO, WILL ENDORSE TO ONCOMING NURSE.
[2018-11-08 07:02] LABS: BASOPHILS % (AUTO) 0.4 % (0.0-2.0); HEMATOCRIT 26 % (33-45); HEMOGLOBIN 8.5 g/dL (11.5-14.8); LYMPHOCYTES # (AUTO) 0.5 /CMM (0.8-4.8); LYMPHOCYTES % (AUTO) 4.2 % (20.0-44.0); MEAN CORPUSCULAR HGB CONC 33 g/dl (31.0-36.0); MEAN CORPUSCULAR VOLUME 93 fL (82-100); MONOCYTES # (AUTO) 1.2 /CMM (0.1-1.30); MONOCYTES % (AUTO) 9.3 % (2.0-12.0); NEUTROPHILS # (AUTO) 11.2 /CMM (1.8-8.9); NEUTROPHILS % (AUTO) 86.1 % (43.0-81.0); PLATELET COUNT (AUTO) 483 /CMM (150-450); RED BLOOD CELL COUNT(AUTO) 2.78 MIL/uL (4.0-5.2)
--- NOTE | 2018-11-08 07:05 | NUR ---
PT REFUSED RESP TX AT THIS TIME. NO S/S OF SOB NOTED. BENEFITS AND CONTRAINDICATIONS EXPLAINED. WILL CONT TO MONITOR. Addendum: 11/08/18 at 0706 by DEBRA DUENAS RT Amended: Links added.
[2018-11-08 07:33] LABS: BILIRUBIN,TOTAL 0.1 mg/dL (0.2-1.0); CALCIUM, SERUM 7.5 mg/dL (8.5-10.1); CREATININE 0.3 mg/dL (0.6-1.3); MAGNESIUM 1.7 mg/dL (1.8-2.4); PHOSPHORUS 2.8 mg/dL (2.5-4.9); TOTAL PROTEIN, SERUM 3.5 g/dL (6.4-8.2)
[2018-11-08 07:36] LABS: POTASSIUM 2.3 mmol/L (3.5-5.1)
[2018-11-08 07:37] LABS: ALBUMIN 1.4 g/dL (3.4-5.0)
[2018-11-08] MEDS ORDERED: POTASSIUM CL. PREMIX PERIPHER. 50 ML IV SCH (08:30)
[2018-11-08 08:40] VITALS: BP 105/60
[2018-11-08] MEDS: SUCRALFATE 1 G/10 ML UDC PO SCH ×4 (08:43→21:18)
[2018-11-08] MEDS: HYDROCORTISONE SOD SUCCINATE 100 MG/2 ML VIAL IV SCH ×2 (08:44→16:56)
[2018-11-08] MEDS: PANTOPRAZOLE 40 MG TABLET.DR PO SCH (08:44)
[2018-11-08] MEDS: APIXABAN 2.5 MG TABLET PO SCH ×2 (08:45→16:47)
[2018-11-08] MEDS: ACIDOPHILUS/BULGARICUS 1 EACH TAB.CHEW PO SCH (08:45)
[2018-11-08] MEDS: ALLOPURINOL 100 MG TABLET PO SCH (08:46)
[2018-11-08] MEDS: OLANZAPINE 5 MG TABLET PO SCH (08:47)
[2018-11-08] MEDS: CHOLESTYRAMINE/ASPARTAME 4 G/PKT PACKET PO SCH ×2 (08:48→16:07)
[2018-11-08] MEDS: PROSOURCE / PROSTAT (PYXIS) 30 ML UDC PO SCH ×3 (08:48→16:06)
[2018-11-08] MEDS: ACETAMINOPHEN 325 MG TABLET PO SCH (08:48)
[2018-11-08] MEDS: MULTIVIT W/MINERALS 1 TAB TABLET PO SCH (08:48)
[2018-11-08] MEDS: ASCORBIC ACID 500 MG TABLET PO SCH (08:48)
[2018-11-08] MEDS: POTASSIUM CHLORIDE 20 MEQ TAB.PRT.SR PO SCH ×6 (09:00→15:56)
[2018-11-08] MEDS: ACETYLCYSTEINE 10% 3,000 MG/30 ML VIAL PO SCH ×2 (09:00→16:04)
[2018-11-08] MEDS: ACYCLOVIR 200 MG CAPSULE PO SCH ×2 (09:01→16:55)
[2018-11-08] MEDS: Magnesium 1GM/D5W 100ML PREMIX 100 ML IV SCH ×2 (09:56→11:32)
--- NOTE | 2018-11-08 10:02 | NUR ---
WOUND CARE CONSULT WOUND CARE RECEIVED CONSULT FOR SACROCOCCYX WOUND. WOUND CARE WILL DEFER CONSULT AND TREATMENT PLANS TO PLASTIC SURGICAL TEAM WHO ARE CURRENTLY FOLLOWING THIS PATIENT. PATIENT WITH DUANE AT 13, ALL PRESSURE ULCER PREVENTION MEASURES ARE NOTED TO BE IN PLACE. WILL SEE PRN.
[2018-11-08] MEDS ORDERED: DIATR MEGLU/DIATRIZOATE SODIUM 30 ML BOTTLE (GASTROGRAPHIN) ONE (10:27)
[2018-11-08] MEDS ORDERED: Magnesium 1GM/D5W 100ML PREMIX 100 ML IV SCH (10:30)
[2018-11-08] MEDS ORDERED: IOHEXOL-300 100 ML VIAL IV ONE (10:55)
[2018-11-08] MEDS ORDERED: CT SWABBABLE VALVE TRANS SET 1 EA INFUS.SET MC ONE (10:55)
[2018-11-08] MEDS ORDERED: IV NS 0.9% 250 ML IV ONE (10:56)
--- NOTE | 2018-11-08 11:06 | NUR ---
Pt refusing oral contrast
[2018-11-08] MEDS: MUPIROCIN OINT 2% 22 GM TUBE TP SCH ×2 (11:20→21:19)
[2018-11-08] MEDS: HYDROGEL DRESSING 90 GM TUBE TP PRN ×2 (11:20→11:40)
--- NOTE | 2018-11-08 12:30 | NUR ---
URINE SPECIMEN SENT PER ORDERS FROM DR. GARCIA.
[2018-11-08] MEDS: HYDROGEL DRESSING 90 GM TUBE TP SCH ×2 (12:44→21:19)
[2018-11-08 13:34] LABS: CHLORIDE,URINE RANDOM 124 mmol/L (55-125); POTASSIUM RNDM,URINE 14 mmol/L (25-125); URINE SODIUM, RANDOM 84 mmol/l (40-220)
[2018-11-08 13:38] LABS: OSMOLALITY,URINE 322 mOS/kg (340-1090)
--- NOTE | 2018-11-08 15:00 | NUR ---
MG AND POTASSIUM REPLACEMENTS GIVEN.
--- NOTE | 2018-11-08 15:56 | NUR ---
RECEIVED ABNORMAL POTASSIUM REPORT OF 2.7.AT 1530 PT. JUST RECEIVED LAST DOSE OF ORAL POTASSIUM.RN TEXTED DR. BARBA TO HAVE LAB REDRAWN 2 HOURS FROM LAST DOSE. AGREEABLE.
[2018-11-08 16:30] VITALS: BP 105/57
[2018-11-08 16:34] LABS: CALCIUM, SERUM 7.6 mg/dL (8.5-10.1); CREATININE 0.5 mg/dL (0.6-1.3)
[2018-11-08 17:00] LABS: POTASSIUM 2.7 mmol/L (3.5-5.1)
--- NOTE | 2018-11-08 17:30 | NUR ---
C/O BURNING MOUTH,PT.RN SUSPICIOUS ABOUT POSSIBLE THRUSH.
[2018-11-08] MEDS ORDERED: OCTREOTIDE 50 MCG/ML AMPUL SQ SCH (18:30)
--- NOTE | 2018-11-08 18:30 | NUR ---
DR. SHERIFF IN TO SEE PT.XYLOCAINE AND NYSTATIN ORDERED.
[2018-11-08] MEDS: NYSTATIN (PYXIS) 500,000 UNIT/5 ML ORAL.SUSP PO SCH (19:01)
[2018-11-08] MEDS: LIDOCAINE VISCOUS 2% UD 15 ML UDC MM SCH (19:01)
--- NOTE | 2018-11-08 19:07 | NUR ---
GIVEN MYCOSTATIN AND XYLOCAINE FOR C/O BURNING THROAT.
--- NOTE | 2018-11-08 19:09 | NUR ---
[address] BARBA REGARDING POSITIVE REPORT OF C-DIFF FROM GORAN ID NURSE TO COME IN AND SEE PT.
--- NOTE | 2018-11-08 19:15 | NUR ---
EVE. OLMOS TO FOLLOW UP WITH DR. BARBA ON LATEST POTASSIUM LEVEL OF 3.3.
[2018-11-08 20:00] VITALS: BP 102/58
--- NOTE | 2018-11-08 20:00 | NUR ---
RN MS OPENING NOTES RECEIVED PATIENT IN BED AWAKE, ALERT AND ORIENTED X4, VERBALLY RESPONSIVE, ABLE TO MAKE NEEDS KNOWN. BREATHING EVEN AND UNLABORED. NO SOB NOTED. TOLERATING ROOM AIR. CURRENTLY WITH NO COMPLAINTS OF PAIN OR DISCOMFORT. NO FACIAL GRIMACING. PATIENT HAS A RIGHT CHEST WALL PORTACATH WITH IVF INFUSING. SKIN DRY AND WARM TO TOUCH. AFEBRILE. REMAINS ON CONTACT ISOLATION FOR CDIFF. ALL OTHER NEEDS MET. SAFETY MEASURES IN PLACE. CALL LIGHT WITHIN REACH. WILL CONTINUE TO MONITOR.
[2018-11-08] MEDS: FLUCONAZOLE (100 MG) 100 MG TABLET PO SCH (20:15)
--- NOTE | 2018-11-08 21:30 | NUR ---
RN MS NOTES INFORMED PATIENT THAT SHE HAS A BREATHING TX AT 2330 AND 0330 AND ALSO A LIDOCAINE PO AT 0230. PER PATIENT, SHE IS REFUSING BREATHING TX AND LIDOCAINE SINCE SHE DOES NOT NEED THEM. SHE DOES NOT WANT TO BE WOKEN UP UNTIL 0600 OR IF SHE REQUESTS TO BE CHANGED. EXPLAINED RISKS BENEFITS OF EACH MEDICATION BUT PATIENT STILL REFUSED. WILL CONTINUE TO MONITOR.
--- NOTE | 2018-11-08 22:21 | NUR ---
RN MS NOTES INFORMED DR. MORRISON THAT PATIENT'S POTASSIUM LEVEL IS 3.3 DESPITE THE 60 MEQ KDUR THAT WAS GIVEN DURING DAY SHIFT. PER DR. MORRISON, GIVE ANOTHER KDUR 20MEQ PO X1. ORDER NOTED AND CARRIED OUT. WILL CONTINUE TO MONITOR.
[2018-11-08] MEDS ORDERED: POTASSIUM CHLORIDE 20 MEQ TAB.PRT.SR PO ONE (22:30)
[2018-11-08] MEDS: ZOLPIDEM TARTRATE 10 MG TABLET PO PRN (23:14)
[2018-11-09] MEDS: IV NS 0.9% 1,000 ML IV PRN (02:15)
[2018-11-09] MEDS: LIDOCAINE VISCOUS 2% UD 15 ML UDC MM SCH ×4 (02:16→16:52)
[2018-11-09] MEDS: ALBUTEROL FS 2.5 MG/0.5 ML VIAL.NEB NEB SCH ×6 (03:30→23:30)
[2018-11-09 05:12] VITALS: BP 102/58
--- NOTE | 2018-11-09 05:34 | NUR ---
RN MS NOTES PATIENT INQUIRED ABOUT THE SCHEDULED TIMES SHE RECEIVES HER XYLOCAIN VISCOUS. INFORMED PATIENT THAT SHE GETS THEM AT 1030AM, 1830, AND AT 0230. PER PATIENT SHE "DOES NOT EVEN EAT AT THOSE TIMES", SO THERE'S "NO USE FOR THEM AT THOSE HOURS". PATIENT REQUESTED TO HAVE THE TIMES CHANGED TO "BEFORE MEALS" SO THAT SHE CAN TAKE THEM PRIOR TO EATING AND SO THAT SHE CAN COMFORTABLY EAT WITHOUT BEING IN PAIN, OTHERWISE SHE WILL NOT HAVE APPETITE. INFORMED PATIENT THAT I WOULD NEED TO GET AN OK FROM A DOCTOR FIRST PRIOR TO CHANGING THE TIMES - PATIENT VERBALIZED UNDERSTANDING. CALLED ON-CALL PHARMACY [facility] AND SPOKE WITH NAYELY. MADE SURE WITH NAYELY THAT I CAN SCHEDULE THE XYLOCAINE BEFORE MEALS, WHICH REQUIRES THE SCHEDULE TO BE ABOUT 5 HOURS APART COMPARED TO THE [facility] THAT IT WAS ORIGINALLY SCHEDULED WITH. PER NAYELY, IT IS OK TO SCHEDULE IT BEFORE MEALS. PAGED ON-CALL MD MORRISON AND INFORMED OF PATIENT'S REQUEST TO CHANGE XYLOCAINE TO BEFORE MEALS. PER DR. MORRISON, OK TO CHANGE IT. ORDER NOTED AND CARRIED OUT. ALSO INFORMED PATIENT ABOUT THE CHANGE OF TIMES AND PATIENT WAS VERY THANKFUL.
[2018-11-09] MEDS: METRONIDAZOLE 500MG/ NS 100ML 500 MG in PREMIX 1 EA IV SCH ×4 (05:45→23:00)
[2018-11-09] MEDS: VANCOMYCIN HCL 125 MG/2.5 ML ORAL.SUSP PO SCH ×4 (05:45→23:00)
--- NOTE | 2018-11-09 06:48 | NUR ---
RN MS CLOSING NOTES PATIENT RESTING IN BED. NO ACUTE CHANGES THROUGHOUT SHIFT. BREATHING EVEN AND UNLABORED. NO SOB NOTED. TOLERATING ROOM AIR. CURRENTLY WITH NO COMPLAINTS OF PAIN OR DISCOMFORT. PATIENT WITH RIGHT CHEST WALL PORTACATH WITH IVF INFUSING. DRESSING CHANGED - CURRENTLY CLEAN, DRY AND INTACT. REMAINS ON CONTACT ISOLATION FOR CDIFF. ALL OTHER NEEDS MET. SAFETY MEASURES IN PLACE. CALL LIGHT WITHIN REACH. WILL ENDORSE TO ONCOMING NURSE FOR VICTORIANO.
[2018-11-09 07:23] LABS: BASOPHILS % (AUTO) 0.4 % (0.0-2.0); HEMATOCRIT 27 % (33-45); HEMOGLOBIN 9.2 g/dL (11.5-14.8); LYMPHOCYTES # (AUTO) 0.6 /CMM (0.8-4.8); LYMPHOCYTES % (AUTO) 7.5 % (20.0-44.0); MEAN CORPUSCULAR HGB CONC 34 g/dl (31.0-36.0); MEAN CORPUSCULAR VOLUME 93 fL (82-100); MONOCYTES # (AUTO) 0.7 /CMM (0.1-1.30); MONOCYTES % (AUTO) 9.2 % (2.0-12.0); NEUTROPHILS # (AUTO) 6.1 /CMM (1.8-8.9); NEUTROPHILS % (AUTO) 82.9 % (43.0-81.0); PLATELET COUNT (AUTO) 464 /CMM (150-450); RED BLOOD CELL COUNT(AUTO) 2.89 MIL/uL (4.0-5.2); WHITE BLOOD COUNT (AUTO) 7.4 K/uL (4.3-11.0)
--- NOTE | 2018-11-09 07:35 | NUR ---
MS RN OPENING NOTES RECEIVED PT IN BED, CURRENTLY CHANGING HER DIAPER WITH MANAGER TREASURY IN THE ROOM. TOLERATING RA, WITH NO ACUTE RESPIRATORY DISTRESS NOTED. PT DENIES PAIN. PT CONCERNED OF BEING DISCHARGE TODAY OR TOMORROW. PT AWARE SHE HAS TO WAIT FOR MD TO DO ROUNDS AND ASK QUESTIONS FOR PLAN. RN STATED WILL UPDATE THE PT FOR THE PLAN OF CARE THROUGHOUT THE DAY. PT HAS IVF NS AT 150ML/HR TO RIGHT CHEST PORTACATH, INTACT AND FLUID INFUSING WELL. PT KEPT COMFORTABLE. PT'S BED IN LOWEST, LOCKED POSITION WITH SR X2. CALL LIGHT AND FLUID WITHIN REACH. WILL CONTINUE PLAN OF CARE.
[2018-11-09 07:38] LABS: ALBUMIN 1.5 g/dL (3.4-5.0); BILIRUBIN,TOTAL 0.1 mg/dL (0.2-1.0); CALCIUM, SERUM 7.7 mg/dL (8.5-10.1); CREATININE 0.4 mg/dL (0.6-1.3); MAGNESIUM 1.6 mg/dL (1.8-2.4); PHOSPHORUS 2.1 mg/dL (2.5-4.9); TOTAL PROTEIN, SERUM 3.6 g/dL (6.4-8.2)
[2018-11-09 07:46] LABS: POTASSIUM 2.7 mmol/L (3.5-5.1)
[2018-11-09] MEDS: SUCRALFATE 1 G/10 ML UDC PO SCH ×4 (07:49→21:24)
[2018-11-09] MEDS: PANTOPRAZOLE 40 MG TABLET.DR PO SCH (07:50)
[2018-11-09 08:00] VITALS: BP 117/64
[2018-11-09] MEDS: Magnesium 1GM/D5W 100ML PREMIX 100 ML IV SCH ×2 (08:42→09:44)
[2018-11-09] MEDS: NYSTATIN (PYXIS) 500,000 UNIT/5 ML ORAL.SUSP PO SCH ×3 (08:43→17:08)
[2018-11-09] MEDS: POTASSIUM CHLORIDE 20 MEQ TAB.PRT.SR PO SCH ×5 (08:43→13:42)
[2018-11-09] MEDS: ACIDOPHILUS/BULGARICUS 1 EACH TAB.CHEW PO SCH (08:43)
[2018-11-09] MEDS: HYDROCORTISONE SOD SUCCINATE 100 MG/2 ML VIAL IV SCH ×2 (08:44→16:52)
[2018-11-09] MEDS: ACYCLOVIR 200 MG CAPSULE PO SCH ×2 (08:44→16:53)
[2018-11-09] MEDS: ALLOPURINOL 100 MG TABLET PO SCH (08:44)
[2018-11-09] MEDS: FLUCONAZOLE (100 MG) 100 MG TABLET PO SCH (08:44)
[2018-11-09] MEDS: APIXABAN 2.5 MG TABLET PO SCH ×2 (08:48→17:09)
[2018-11-09] MEDS: ACETAMINOPHEN 325 MG TABLET PO SCH (09:00)
[2018-11-09] MEDS: MULTIVIT W/MINERALS 1 TAB TABLET PO SCH (09:00)
[2018-11-09] MEDS: ASCORBIC ACID 500 MG TABLET PO SCH (09:00)
[2018-11-09] MEDS: MUPIROCIN OINT 2% 22 GM TUBE TP SCH ×2 (09:00→21:25)
[2018-11-09] MEDS: PROSOURCE / PROSTAT (PYXIS) 30 ML UDC PO SCH ×3 (09:00→17:00)
[2018-11-09] MEDS: ACETYLCYSTEINE 10% 3,000 MG/30 ML VIAL PO SCH ×2 (09:00→17:00)
[2018-11-09] MEDS: OLANZAPINE 5 MG TABLET PO SCH (09:00)
[2018-11-09] MEDS: CHOLESTYRAMINE/ASPARTAME 4 G/PKT PACKET PO SCH ×2 (09:00→17:00)
[2018-11-09 09:18] LABS: BAND % (MANUAL) 3 % (0.0-5.0); LYMPHOCYTES % (MANUAL) 4 % (16-48); MONOCYTES % (MANUAL) 2 % (0-11.0); MYELOCYTES % 6 % (0-0); NEUTROPHILS % (MANUAL) 85 (42-76)
[2018-11-09] MEDS: NEUTRA PHOS 1 POWD.PACKET PO SCH ×2 (09:28→17:06)
[2018-11-09] MEDS: HYDROGEL DRESSING 90 GM TUBE TP SCH ×2 (09:28→21:25)
--- NOTE | 2018-11-09 11:20 | NUR ---
RT PT REFUSED TX. NO SIGNS OF SOB. HENRI OLMOS AWARE. Addendum: 11/09/18 at 1124 by DEBRA DUENAS RT Amended: Links added.
[2018-11-09 16:00] VITALS: BP 124/71
--- NOTE | 2018-11-09 16:20 | NUR ---
RT PATIENT REFUSED TX. NO SIGNS OF ANY SOB. NURSE AWARE. Addendum: 11/09/18 at 1621 by DEBRA DUENAS RT Amended: Links added.
--- NOTE | 2018-11-09 19:11 | NUR ---
MS RN CLOSING NOTES PT REMAINS RESTING IN BED. A/O X4. TOLERATING RA, WITH NO ACUTE RESPIRATORY DISTRESS NOTED. PT DENIES PAIN. ON CONTACT ISOLATION; PT HAD 4X DIARRHEA AT AM SHIFT PER AUTOMOTIVE INSTRUCTOR/LESTER. RIGHT CHEST PORTACATH NOTED, FLUSHED WITH NS INATCT AND OPERATIONAL. ALL NEEDS AND CARE ATTENDED. PT KEPT COMFORTABLE. PT'S BED IN LOWEST, LOCKED POSITION WITH SR X2. CALL LIGHT AND FLUID WITHIN REACH. ENDORSED TO AUTOMOBILE PAINTER NURSE FOR VICTORIANO.
--- NOTE | 2018-11-09 19:45 | NUR ---
RN MS OPENING NOTES RECEIVED PATIENT IN BED AWAKE, ALERT AND ORIENTED X4, VERBALLY RESPONSIVE, ABLE TO MAKE NEEDS KNOWN. BREATHING EVEN AND UNLABORED. NO SOB NOTED. TOLERATING ROOM AIR. CURRENTLY WITH NO COMPLAINTS OF PAIN OR DISCOMFORT. NO FACIAL GRIMACING. PATIENT HAS A RIGHT CHEST WALL PORTACATH INTACT AND PATENT. SKIN DRY AND WARM TO TOUCH. AFEBRILE. REMAINS ON CONTACT ISOLATION FOR CDIFF. ALL OTHER NEEDS MET. SAFETY MEASURES IN PLACE. CALL LIGHT WITHIN REACH. WILL CONTINUE TO MONITOR.
[2018-11-09 20:00] VITALS: BP 100/66
[2018-11-09] MEDS: ZOLPIDEM TARTRATE 10 MG TABLET PO PRN (23:00)
[2018-11-10] MEDS: ALBUTEROL FS 2.5 MG/0.5 ML VIAL.NEB NEB SCH ×5 (03:30→15:30)
[2018-11-10] MEDS: VANCOMYCIN HCL 125 MG/2.5 ML ORAL.SUSP PO SCH ×3 (05:27→17:37)
[2018-11-10] MEDS: METRONIDAZOLE 500MG/ NS 100ML 500 MG in PREMIX 1 EA IV SCH ×3 (05:27→17:37)
[2018-11-10 06:23] LABS: HEMATOCRIT 28 % (33-45); HEMOGLOBIN 9.4 g/dL (11.5-14.8); LYMPHOCYTES # (AUTO) 0.5 /CMM (0.8-4.8); LYMPHOCYTES % (AUTO) 6.1 % (20.0-44.0); MEAN CORPUSCULAR HGB CONC 34 g/dl (31.0-36.0); MEAN CORPUSCULAR VOLUME 93 fL (82-100); MONOCYTES # (AUTO) 0.5 /CMM (0.1-1.30); MONOCYTES % (AUTO) 6.5 % (2.0-12.0); NEUTROPHILS # (AUTO) 6.8 /CMM (1.8-8.9); NEUTROPHILS % (AUTO) 87.4 % (43.0-81.0); PLATELET COUNT (AUTO) 453 /CMM (150-450); RED BLOOD CELL COUNT(AUTO) 2.99 MIL/uL (4.0-5.2); WHITE BLOOD COUNT (AUTO) 7.7 K/uL (4.3-11.0)
--- NOTE | 2018-11-10 06:38 | NUR ---
RN MS CLOSING NOTES PATIENT RESTING IN BED. NO ACUTE CHANGES THROUGHOUT SHIFT. BREATHING EVEN AND UNLABORED. NO SOB NOTED. TOLERATING ROOM AIR. CURRENTLY WITH NO COMPLAINTS OF PAIN OR DISCOMFORT. RIGHT CHEST WALL PORTACATH INTACT AND PATENT. DRESSING CHANGED - CURRENTLY CLEAN, DRY AND INTACT. REMAINS ON CONTACT ISOLATION FOR CDIFF -STOOL HAS BEEN SOFT FORMED THROUGHOUT NIGHT. ALL OTHER NEEDS MET. SAFETY MEASURES IN PLACE. CALL LIGHT WITHIN REACH. WILL ENDORSE TO ONCOMING NURSE FOR VICTORIANO.
[2018-11-10 07:08] LABS: ALBUMIN 1.6 g/dL (3.4-5.0); BILIRUBIN,TOTAL 0.1 mg/dL (0.2-1.0); CALCIUM, SERUM 8.1 mg/dL (8.5-10.1); CREATININE 0.4 mg/dL (0.6-1.3); MAGNESIUM 1.7 mg/dL (1.8-2.4); PHOSPHORUS 2.8 mg/dL (2.5-4.9); TOTAL PROTEIN, SERUM 3.9 g/dL (6.4-8.2)
[2018-11-10] MEDS: PANTOPRAZOLE 40 MG TABLET.DR PO SCH (07:57)
[2018-11-10] MEDS: LIDOCAINE VISCOUS 2% UD 15 ML UDC MM SCH ×3 (07:57→16:57)
[2018-11-10] MEDS: SUCRALFATE 1 G/10 ML UDC PO SCH ×3 (07:57→16:57)
[2018-11-10] MEDS: Magnesium 1GM/D5W 100ML PREMIX 100 ML IV SCH ×2 (07:58→09:15)
[2018-11-10 08:00] VITALS: BP 119/64
[2018-11-10] MEDS: ASCORBIC ACID 500 MG TABLET PO SCH (08:21)
[2018-11-10] MEDS: MULTIVIT W/MINERALS 1 TAB TABLET PO SCH (08:21)
[2018-11-10] MEDS: POTASSIUM CHLORIDE 20 MEQ TAB.PRT.SR PO SCH ×2 (08:22→13:43)
[2018-11-10] MEDS: OLANZAPINE 5 MG TABLET PO SCH (08:22)
[2018-11-10] MEDS: ALLOPURINOL 100 MG TABLET PO SCH (08:23)
[2018-11-10] MEDS: ACYCLOVIR 200 MG CAPSULE PO SCH ×3 (08:24→17:37)
[2018-11-10] MEDS: ACIDOPHILUS/BULGARICUS 1 EACH TAB.CHEW PO SCH (08:24)
[2018-11-10] MEDS: FLUCONAZOLE (100 MG) 100 MG TABLET PO SCH (08:24)
[2018-11-10] MEDS: APIXABAN 2.5 MG TABLET PO SCH ×2 (08:27→16:55)
[2018-11-10] MEDS: CHOLESTYRAMINE/ASPARTAME 4 G/PKT PACKET PO SCH ×2 (08:28→16:58)
[2018-11-10] MEDS: PROSOURCE / PROSTAT (PYXIS) 30 ML UDC PO SCH ×3 (08:29→16:58)
[2018-11-10] MEDS: NYSTATIN (PYXIS) 500,000 UNIT/5 ML ORAL.SUSP PO SCH ×3 (08:29→16:57)
[2018-11-10] MEDS ORDERED: HYDROCORTISONE SOD SUCCINATE 100 MG/2 ML VIAL IV SCH (09:00)
[2018-11-10] MEDS: MUPIROCIN OINT 2% 22 GM TUBE TP SCH (09:00)
[2018-11-10] MEDS: ACETAMINOPHEN 325 MG TABLET PO SCH (09:00)
[2018-11-10] MEDS: HYDROGEL DRESSING 90 GM TUBE TP SCH (09:26)
[2018-11-10] MEDS: ACETYLCYSTEINE 10% 3,000 MG/30 ML VIAL PO SCH (09:50)
--- NOTE | 2018-11-10 11:24 | NUR ---
MS RN NOTES TOOK OVER CARE, REPORT GIVEN BY BONILLA OLMOS. NO ACUTE DISTRESS. SAFETY MEASURES IN PLACE. CALL LIGHT WITHIN REACH WILL CONTINUE TO MONITOR ACCORDINGLY.
--- NOTE | 2018-11-10 11:29 | NUR ---
REPORT TO NURSE DINO , NO DISTRESS WITH PATIENT AT TIME OF REPORT
[2018-11-10 16:00] VITALS: BP 96/56
--- NOTE | 2018-11-10 16:30 | NUR ---
MS RN NOTES PATIENT DISCHARGED TO [facility] WITH STABLE VITAL SIGNS, NO ACUTE DISTRESS NOTED. BREATHING UNLABORED. DISCHARGE INSTRUCTIONS GIVEN TO THE PATIENT, VERBALIZED UNDERSTANDING.REPORT GIVEN TO ABBEY OLMOS OF [facility]. IV ACCESS REMOVED, NO BLEEDING NO REDNESS NO SWELLING NOTED. ALL BELONGINGS ACCOUNTED FOR. PATIENT REFUSED WOUND CARE ON SACRAL AREA, RISK AND BENEFITS EXPLAINED, VERBALIZED UNDERSTANDING. NEEDS ATTENDED AND ANTICIPATED. REPOSITIONED PER PROTOCOL. PICKED UP VIA AMBULANCE IN A GURNEY ACCOMPANIED BY 2 EMT PERSONNEL WITH STABLE VITAL SIGNS. DISCHARGE PAPERS HANDED OVER TO EMT PERSONNEL TO BE GIVEN TO TOMASA EDUARDO RN.
== END 2018-11-10 18:23 | DRG 871 ==
LOC: ER 10:27 → ICU 12:27 → MED 11-07 13:30
PROVIDERS: ADMIT Family Medicine
DX: A41.9 Sepsis, unspecified organism (principal); L89.153 Pressure ulcer of sacral region, stage 3; L89.313 Pressure ulcer of right buttock, stage 3; A04.72 Enterocolitis due to Clostridium difficile, not specified as recurrent; R64 Cachexia; C83.30 Diffuse large B-cell lymphoma, unspecified site; K50.90 Crohn's disease, unspecified, without complications; B37.0 Candidal stomatitis; Z68.1 Body mass index [BMI] 19.9 or less, adult; D61.818 Other pancytopenia; E46 Unspecified protein-calorie malnutrition; E27.40 Unspecified adrenocortical insufficiency; K56.7 Ileus, unspecified; E86.0 Dehydration; E87.6 Hypokalemia; E83.39 Other disorders of phosphorus metabolism; E83.42 Hypomagnesemia; I50.9 Heart failure, unspecified; J44.9 Chronic obstructive pulmonary disease, unspecified; Z79.01 Long term (current) use of anticoagulants; Z86.14 Personal history of Methicillin resistant Staphylococcus aureus infection; D63.8 Anemia in other chronic diseases classified elsewhere; I95.9 Hypotension, unspecified; D47.3 Essential (hemorrhagic) thrombocythemia
CPT/HCPCS: 36415; 71045-TC; 71270-TC; 74178; 80048-TC; 80053-TC; 80061-TC; 81000-TC; 82436-TC; 82533; 83605-TC; 83735-TC; 83935-TC; 84100-TC; 84132-TC; 84133-TC; 84300-TC; 85025-TC; 87040-TC; 87081-TC; 87086-TC; 94760-TC; A4216; A6248; A6253; A6402; G0378; J1720; J2354; J2543; J3370; J3475; J3480; J3490; J7030; J7050; J7060; Q0169; Q9963; Q9967